=== PATIENT | female | born 1965 | race Caucasian/White ===

== ENCOUNTER 2017-07-05 04:32 | Emergency (ER) | payer MEDICAID ==
[2017-07-05 07:21] LABS: WHITE BLOOD COUNT 2.8 10^3/ul (4.8-10.8)
[2017-07-05 07:21] LABS: ABNORMAL IP MESSAGE 1; HEMATOCRIT 33.7 % (37.0-47.0); HEMOGLOBIN 11.1 g/dl (12.0-16.0); MEAN CORPUSCULAR HEMOGLOBIN 29.1 pg (29.0-33.0); MEAN CORPUSCULAR HGB CONC 32.9 g/dl (32.0-37.0); MEAN CORPUSCULAR VOLUME 88.2 fl (82.0-101.0); MEAN PLATELET VOLUME 8.5 fl (7.4-10.4); PLATELET COUNT 403 10^3/UL (140-415); RED BLOOD COUNT 3.82 10^6/ul (4.20-5.40); RED CELL DISTRIBUTION WIDTH 17.9 % (11.5-14.5)
[2017-07-05 07:26] LABS: ADD MAN DIFF? YES; POSITIVE DIFF @See below
[2017-07-05 07:40] LABS: INR 0.96; PROTIME 12.9 Sec (11.9-14.9)
[2017-07-05 07:46] LABS: ANION GAP 13 (8-16); BLOOD UREA NITROGEN 9 mg/dl (7-20); CALCIUM 9.9 mg/dl (8.4-10.2); CARBON DIOXIDE 34 mmol/L (21-31); CHLORIDE 99 mmol/L (97-110); CREATININE 0.62 mg/dl (0.44-1.00); GLUCOSE 121 mg/dl (70-220); POTASSIUM 3.7 mmol/L (3.5-5.1); SODIUM 142 mmol/L (135-144)
[2017-07-05 08:01] LABS: TROPONIN-I < 0.012 ng/ml (0.00-0.12)
[2017-07-05 08:20] LABS: ANISOCYTOSIS 1+ (0-0); BAND NEUTROPHILS % (M) 1 % (0-4); EOSINOPHILS % (M) 3 % (0-7); GIANT THROMBO% (M) 2 % (0-0); LYMPHOCYTES #M 0.4 10^3/ul (0.8-2.9); LYMPHOCYTES % (M) 17 % (15-51); MONOCYTE #M 0.4 10^3/ul (0.3-0.9); MONOCYTES % (M) 15 % (0-11); OVALOCYTES 1+ (0-0); PLATELET ESTIMATE NORMAL; POIKILOCYTOSIS 1+ (0-0); POLYCHROMASIA 1+ (0-0); REACTIVE LYMPHOCYTES% (M) 1 % (0-0); SEG NEUT #M 1.8 10^3/ul (1.6-7.5); SEGMENTED NEUTROPHILS (M) % 63 % (39-77); SMUDGE%M 1 % (0-0)
[2017-07-05] MEDS: IOHEXOL 100 ML (08:22)
[2017-07-05] MEDS: SOD CHLORIDE 0.9% 100 ML (08:23)
== END 2017-07-05 10:05 | disposition home or self-care (01) ==
LOC: FTE 04:32
DX: M54.6 Pain in thoracic spine (principal); I10 Essential (primary) hypertension; R07.9 Chest pain, unspecified; Z85.3 Personal history of malignant neoplasm of breast
CPT/HCPCS: 36415; 71045; 71275; 80048; 84484; 85025; 85610; 85730; 93005; 93971; 99285-25

== ENCOUNTER 2017-07-11 12:58 | Emergency (ER) | payer MEDICAID ==
[2017-07-11] MEDS: LACTULOSE 30ML CUP PO (13:58)
[2017-07-11] MEDS: SOD CHLORIDE 0.9% 1,000 ML IV (13:59)
[2017-07-11] MEDS: HYDROmorphONE 1 MG/5 ML IV SYRINGE IV (13:59)
[2017-07-11] MEDS: MAGNESIUM HYDROXIDE 30ML CUP PO (14:57)
[2017-07-11] MEDS: METHYLNALTREXONE 12 MG/0.6 ML VIAL SC (14:57)
[2017-07-11] MEDS: MINERAL OIL 133 ML ENEMA PR (14:58)
[2017-07-11 16:50] LABS: ADD UMIC YES; UR ASCORBIC ACID NEGATIVE (NEGATIVE); UR BACTERIA FEW /HPF (NONE SEEN); UR BILIRUBIN (Dip) NEGATIVE (NEGATIVE); UR BLOOD (Dip) 1+ mg/dL (NEGATIVE); UR CLARITY CLEAR (CLEAR); UR COLOR STRAW (YELLOW); UR GLUCOSE (Dip) NEGATIVE (NEGATIVE); UR KETONES (Dip) NEGATIVE (NEGATIVE); UR LEUKOCYTE ESTERASE (Dip) NEGATIVE Leu/ul (NEGATIVE); UR NITRITE (Dip) NEGATIVE (NEGATIVE); UR RBC 4 /HPF (0-5); UR SPECIFIC GRAVITY (Dip) 1.004 (1.003-1.030); UR SQUAMOUS EPITHELIAL CELL FEW /HPF (FEW); UR TOTAL PROTEIN (Dip) NEGATIVE (NEGATIVE); UR UROBILINOGEN (Dip) NEGATIVE (NEGATIVE); UR WBC 0 /HPF (0-5)
== END 2017-07-11 17:34 | disposition home or self-care (01) ==
LOC: E/R 12:58
DX: K59.03 Drug induced constipation (principal); I10 Essential (primary) hypertension; R40.2142 Coma scale, eyes open, spontaneous, at arrival to emergency department; R40.2252 Coma scale, best verbal response, oriented, at arrival to emergency department; R40.2362 Coma scale, best motor response, obeys commands, at arrival to emergency department; Z85.3 Personal history of malignant neoplasm of breast
CPT/HCPCS: 74176; 81001; 96372; 96374; 99285-25

== ENCOUNTER 2017-07-16 08:38 | Inpatient (IN) | payer MEDICAID, OTHER ==
[2017-07-16 09:20] LABS: ADD MAN DIFF? NO
[2017-07-16 09:23] LABS: WHITE BLOOD COUNT 5.6 10^3/ul (4.8-10.8)
[2017-07-16 09:23] LABS: BASOPHIL # 0.1 10^3/ul (0.0-0.1); BASOPHILS % 1.1 % (0.0-2.0); EOSINOPHILS % 0.7 % (0.0-7.0); HEMATOCRIT 34.1 % (37.0-47.0); HEMOGLOBIN 11.1 g/dl (12.0-16.0); LYMPHOCYTES # 0.8 10^3/ul (0.8-2.9); LYMPHOCYTES % 14.6 % (15.0-51.0); MEAN CORPUSCULAR HEMOGLOBIN 28.5 pg (29.0-33.0); MEAN CORPUSCULAR HGB CONC 32.6 g/dl (32.0-37.0); MEAN CORPUSCULAR VOLUME 87.7 fl (82.0-101.0); MEAN PLATELET VOLUME 8.8 fl (7.4-10.4); MONOCYTE # 0.4 10^3/ul (0.3-0.9); MONOCYTES % 6.4 % (0.0-11.0); NEUTROPHIL # 4.3 10^3/ul (1.6-7.5); NEUTROPHILS % 76.8 % (39.0-77.0); PLATELET COUNT 666 10^3/UL (140-415); RED BLOOD COUNT 3.89 10^6/ul (4.20-5.40); RED CELL DISTRIBUTION WIDTH 18.4 % (11.5-14.5)
[2017-07-16] MEDS: SOD CHLORIDE 0.9% 1,000 ML IV (09:23)
[2017-07-16 09:41] LABS: ALANINE AMINOTRANSFERASE 18 IU/L (13-69); ALBUMIN 4.2 g/dl (3.3-4.9); ALBUMIN/GLOBULIN RATIO 1.13; ALKALINE PHOSPHATASE 106 IU/L (42-121); ANION GAP 16 (8-16); ASPARTATE AMINO TRANSFERASE 30 IU/L (15-46); BILIRUBIN,INDIRECT 0.2 mg/dl (0-1.1); BILIRUBIN,TOTAL 0.2 mg/dl (0.2-1.3); BLOOD UREA NITROGEN 13 mg/dl (7-20); CALCIUM 9.8 mg/dl (8.4-10.2); CARBON DIOXIDE 32 mmol/L (21-31); CHLORIDE 97 mmol/L (97-110); CREATININE 0.67 mg/dl (0.44-1.00); GLUCOSE 103 mg/dl (70-220); INR 0.97; POTASSIUM 3.6 mmol/L (3.5-5.1); SODIUM 141 mmol/L (135-144); TOTAL PROTEIN 7.9 g/dl (6.1-8.1)
[2017-07-16 09:42] LABS: PARTIAL THROMBOPLASTIN TIME 30.5 Sec (25.0-35.0)
[2017-07-16 09:55] LABS: TROPONIN-I < 0.012 ng/ml (0.000-0.120)
[2017-07-16] MEDS: LORAZEPAM 2 MG INJ IV (10:02)
[2017-07-16] MEDS ORDERED: ACETAMINOPHEN 325 MG TAB PO (10:30)
[2017-07-16] MEDS ORDERED: ONDANSETRON 4 MG INJ IV (10:30)
[2017-07-16] MEDS ORDERED: NACL 0.9% 3 ML SYG IV ×2 (10:30)
[2017-07-16 10:38] LABS: ADD UMIC YES; UR ASCORBIC ACID NEGATIVE (NEGATIVE); UR BILIRUBIN (Dip) NEGATIVE (NEGATIVE); UR BLOOD (Dip) 1+ mg/dL (NEGATIVE); UR CLARITY CLEAR (CLEAR); UR COLOR STRAW (YELLOW); UR GLUCOSE (Dip) NEGATIVE (NEGATIVE); UR KETONES (Dip) NEGATIVE (NEGATIVE); UR LEUKOCYTE ESTERASE (Dip) NEGATIVE Leu/ul (NEGATIVE); UR NITRITE (Dip) NEGATIVE (NEGATIVE); UR RBC 3 /HPF (0-5); UR SPECIFIC GRAVITY (Dip) 1.005 (1.003-1.030); UR TOTAL PROTEIN (Dip) NEGATIVE (NEGATIVE); UR UROBILINOGEN (Dip) NEGATIVE (NEGATIVE); UR WBC 0 /HPF (0-5)
[2017-07-16] MEDS: ALBUTEROL HFA 8 GM INHALER INH ×3 (13:00→21:00)
[2017-07-16] MEDS: [UNRECOGNIZED DRUG - REMARK] XX (14:00)
[2017-07-16] MEDS: DOCUSATE SODIUM 100 MG CAP PO ×2 (14:17→20:20)
[2017-07-16] MEDS: DEXAMETHASONE 4 MG/ML 1 ML INJ IV ×2 (14:18→17:29)
[2017-07-16] MEDS: morphine 2 MG INJ IV ×2 (14:19→19:51)
[2017-07-16] MEDS: GABAPENTIN 100 MG CAP PO (14:58)
[2017-07-16] MEDS: morphine (ER) 30 MG TAB PO ×2 (14:59→20:20)
[2017-07-16] MEDS: CALCIUM CARBONATE 1.25 GM TAB PO (14:59)
[2017-07-16] MEDS: MECLIZINE 25 MG TAB PO ×2 (14:59→20:29)
[2017-07-16] MEDS: IBRANCE 100 MG PO (17:00)
[2017-07-16] MEDS: GUAIFENESIN LA 600 MG TABSR PO (20:19)
[2017-07-16] MEDS: TIZANIDINE 2 MG TAB PO (20:20)
[2017-07-16] MEDS: SENNA/DOCUSATE NA (8.6MG/50MG) TAB PO (20:21)
[2017-07-16] MEDS: HYDROmorphONE 0.5 MG/0.5 ML SYG IV (23:24)
[2017-07-17] MEDS: ALBUTEROL HFA 8 GM INHALER INH ×6 (01:00→23:30)
[2017-07-17] MEDS: DEXAMETHASONE 4 MG/ML 1 ML INJ IV ×2 (01:13→06:03)
[2017-07-17] MEDS: PANTOPRAZOLE (EC) 40 MG TAB PO (06:03)
[2017-07-17] MEDS: HYDROmorphONE 0.5 MG/0.5 ML SYG IV ×2 (06:04→11:38)
[2017-07-17 08:01] LABS: ADD MAN DIFF? NO
[2017-07-17 08:10] LABS: ABNORMAL IP MESSAGE 1; BASOPHILS % 0.2 % (0.0-2.0); HEMATOCRIT 30.8 % (37.0-47.0); HEMOGLOBIN 10.2 g/dl (12.0-16.0); LYMPHOCYTES # 0.5 10^3/ul (0.8-2.9); LYMPHOCYTES % 9.3 % (15.0-51.0); MEAN CORPUSCULAR HEMOGLOBIN 29.1 pg (29.0-33.0); MEAN CORPUSCULAR HGB CONC 33.1 g/dl (32.0-37.0); MEAN PLATELET VOLUME 9.3 fl (7.4-10.4); MONOCYTE # 0.2 10^3/ul (0.3-0.9); MONOCYTES % 3.1 % (0.0-11.0); NEUTROPHIL # 5.1 10^3/ul (1.6-7.5); NEUTROPHILS % 86.7 % (39.0-77.0); PLATELET COUNT 524 10^3/UL (140-415); RED CELL DISTRIBUTION WIDTH 18.6 % (11.5-14.5)
[2017-07-17 08:10] LABS: WHITE BLOOD COUNT 5.8 10^3/ul (4.8-10.8)
[2017-07-17 08:19] LABS: POSITIVE DIFF @See below
[2017-07-17 08:21] LABS: ANION GAP 13 (8-16); BLOOD UREA NITROGEN 15 mg/dl (7-20); CALCIUM 9.4 mg/dl (8.4-10.2); CARBON DIOXIDE 29 mmol/L (21-31); CHLORIDE 101 mmol/L (97-110); CREATININE 0.55 mg/dl (0.44-1.00); GLUCOSE 121 mg/dl (70-220); MAGNESIUM 2.3 mg/dl (1.7-2.5); POTASSIUM 3.8 mmol/L (3.5-5.1); SODIUM 139 mmol/L (135-144)
[2017-07-17] MEDS: POLYETHYLENE GLYCOL 17 GM PACKET PO (08:25)
[2017-07-17] MEDS: TIZANIDINE 2 MG TAB PO ×3 (08:26→20:40)
[2017-07-17] MEDS: morphine (ER) 30 MG TAB PO ×2 (08:26→20:37)
[2017-07-17] MEDS: CALCIUM CARBONATE 1.25 GM TAB PO (08:27)
[2017-07-17] MEDS: MECLIZINE 25 MG TAB PO ×3 (08:27→20:38)
[2017-07-17] MEDS: DOCUSATE SODIUM 100 MG CAP PO ×3 (08:27→20:37)
[2017-07-17] MEDS: GUAIFENESIN LA 600 MG TABSR PO ×2 (08:28→20:39)
[2017-07-17] MEDS: SENNA/DOCUSATE NA (8.6MG/50MG) TAB PO ×2 (08:28→20:37)
[2017-07-17] MEDS: LETROZOLE 2.5 MG TAB PO (10:16)
[2017-07-17] MEDS: IBRANCE 100 MG PO (10:16)
[2017-07-17] MEDS: DEXAMETHASONE 10 MG/ML 1 ML INJ IV ×2 (11:37→20:41)
[2017-07-18] MEDS: DEXAMETHASONE 10 MG/ML 1 ML INJ IV ×4 (00:59→17:47)
[2017-07-18] MEDS: ALBUTEROL HFA 8 GM INHALER INH ×6 (01:00→20:26)
[2017-07-18] MEDS: HYDROmorphONE 0.5 MG/0.5 ML SYG IV (01:04)
[2017-07-18] MEDS: ALBUTEROL 0.083% (NEB) 2.5 MG/3 ML AMP HHN ×3 (01:11→21:38)
[2017-07-18] MEDS: PANTOPRAZOLE (EC) 40 MG TAB PO (06:37)
[2017-07-18] MEDS: TIZANIDINE 2 MG TAB PO ×4 (09:00→20:26)
[2017-07-18] MEDS: SENNA/DOCUSATE NA (8.6MG/50MG) TAB PO ×2 (09:00→20:28)
[2017-07-18] MEDS: morphine (ER) 30 MG TAB PO ×2 (09:32→20:30)
[2017-07-18] MEDS: LORAZEPAM 2 MG INJ IV (10:10)
[2017-07-18] MEDS: CALCIUM CARBONATE 1.25 GM TAB PO (10:15)
[2017-07-18] MEDS: GUAIFENESIN LA 600 MG TABSR PO ×2 (10:17→20:27)
[2017-07-18] MEDS: DOCUSATE SODIUM 100 MG CAP PO ×3 (10:17→20:31)
[2017-07-18] MEDS: MECLIZINE 25 MG TAB PO ×3 (10:17→20:27)
[2017-07-18] MEDS: ENOXAPARIN 100 MG/ML SYG SC ×2 (10:27→20:34)
[2017-07-18] MEDS: LETROZOLE 2.5 MG TAB PO (10:27)
[2017-07-18] MEDS: IBRANCE 100 MG PO (10:28)
[2017-07-18] MEDS: POLYETHYLENE GLYCOL 17 GM PACKET PO (10:34)
[2017-07-18] MEDS: BUSPIRONE 5 MG TAB PO ×2 (13:24→21:05)
[2017-07-18] MEDS: BISACODYL 10 MG SUPP PR (21:05)
[2017-07-18] MEDS: MAGNESIUM HYDROXIDE 30ML CUP PO (22:17)
[2017-07-19] MEDS: ALBUTEROL HFA 8 GM INHALER INH ×6 (00:07→21:00)
[2017-07-19] MEDS: LACTULOSE 30ML CUP PO (00:40)
[2017-07-19] MEDS: DEXAMETHASONE 10 MG/ML 1 ML INJ IV ×4 (01:06→17:58)
[2017-07-19] MEDS: BARIUM SULF 2% 450 ML BTL (BERRY SMOOTHIE) PO ×2 (02:46→04:09)
[2017-07-19] MEDS: LORAZEPAM 2 MG INJ IV ×2 (04:08→23:12)
[2017-07-19] MEDS: SOD CHLORIDE 0.9% 1,000 ML IV ×2 (05:10→19:48)
[2017-07-19] MEDS: PANTOPRAZOLE (EC) 40 MG TAB PO (05:13)
[2017-07-19 07:07] LABS: OCCULT BLOOD STOOL NEGATIVE (NEGATIVE)
[2017-07-19] MEDS: IBRANCE 100 MG PO (09:00)
[2017-07-19] MEDS: DOCUSATE SODIUM 100 MG CAP PO ×3 (09:52→21:18)
[2017-07-19] MEDS: CALCIUM CARBONATE 1.25 GM TAB PO (09:52)
[2017-07-19] MEDS: TIZANIDINE 2 MG TAB PO ×3 (09:53→21:18)
[2017-07-19] MEDS: MECLIZINE 25 MG TAB PO ×3 (09:53→21:18)
[2017-07-19] MEDS: GUAIFENESIN LA 600 MG TABSR PO ×2 (09:53→21:18)
[2017-07-19] MEDS: BUSPIRONE 5 MG TAB PO ×2 (09:53→21:18)
[2017-07-19] MEDS: SENNA/DOCUSATE NA (8.6MG/50MG) TAB PO ×2 (09:53→21:17)
[2017-07-19] MEDS: POLYETHYLENE GLYCOL 17 GM PACKET PO (09:53)
[2017-07-19] MEDS: LETROZOLE 2.5 MG TAB PO (10:01)
[2017-07-19] MEDS: ENOXAPARIN 100 MG/ML SYG SC ×2 (10:19→21:34)
[2017-07-19] MEDS: morphine (ER) 30 MG TAB PO ×2 (10:32→21:30)
[2017-07-19] MEDS: HYDROmorphONE 0.5 MG/0.5 ML SYG IV ×2 (10:32→20:01)
[2017-07-19 11:07] LABS: ADD MAN DIFF? NO
[2017-07-19 11:09] LABS: WHITE BLOOD COUNT 9.5 10^3/ul (4.8-10.8)
[2017-07-19 11:10] LABS: ABNORMAL IP MESSAGE 1; HEMATOCRIT 34.4 % (37.0-47.0); HEMOGLOBIN 11.1 g/dl (12.0-16.0); LYMPHOCYTES # 0.4 10^3/ul (0.8-2.9); LYMPHOCYTES % 4.3 % (15.0-51.0); MEAN CORPUSCULAR HEMOGLOBIN 28.8 pg (29.0-33.0); MEAN CORPUSCULAR HGB CONC 32.3 g/dl (32.0-37.0); MEAN CORPUSCULAR VOLUME 89.1 fl (82.0-101.0); MONOCYTE # 0.4 10^3/ul (0.3-0.9); MONOCYTES % 3.7 % (0.0-11.0); NEUTROPHIL # 8.6 10^3/ul (1.6-7.5); NEUTROPHILS % 91.5 % (39.0-77.0); PLATELET COUNT 584 10^3/UL (140-415); RED BLOOD COUNT 3.86 10^6/ul (4.20-5.40); RED CELL DISTRIBUTION WIDTH 18.9 % (11.5-14.5)
[2017-07-19 11:32] LABS: ALBUMIN 4.1 g/dl (3.3-4.9); ANION GAP 17 (8-16); BLOOD UREA NITROGEN 18 mg/dl (7-20); CARBON DIOXIDE 28 mmol/L (21-31); CHLORIDE 99 mmol/L (97-110); CREATININE 0.64 mg/dl (0.44-1.00); GLUCOSE 127 mg/dl (70-220); MAGNESIUM 2.4 mg/dl (1.7-2.5); PHOSPHORUS 3.8 mg/dl (2.5-4.9); POTASSIUM 3.7 mmol/L (3.5-5.1); SODIUM 140 mmol/L (135-144)
[2017-07-19] MEDS: traZODone 50 MG TAB PO (21:18)
[2017-07-19] MEDS ORDERED: hydrALAzine 20 MG INJ IV (21:30)
[2017-07-19] MEDS: hydrALAzine 20 MG INJ IV (22:19)
[2017-07-20] MEDS: DEXAMETHASONE 10 MG/ML 1 ML INJ IV ×4 (00:29→21:35)
[2017-07-20] MEDS: ALBUTEROL HFA 8 GM INHALER INH ×6 (01:00→21:07)
[2017-07-20] MEDS: PANTOPRAZOLE (EC) 40 MG TAB PO (05:44)
[2017-07-20] MEDS: SOD CHLORIDE 0.9% 1,000 ML IV (05:50)
[2017-07-20 06:02] LABS: ADD MAN DIFF? NO
[2017-07-20 06:13] LABS: WHITE BLOOD COUNT 5.2 10^3/ul (4.8-10.8)
[2017-07-20 06:13] LABS: ABNORMAL IP MESSAGE 1; HEMOGLOBIN 11.1 g/dl (12.0-16.0); LYMPHOCYTES # 0.4 10^3/ul (0.8-2.9); LYMPHOCYTES % 7.3 % (15.0-51.0); MEAN CORPUSCULAR HEMOGLOBIN 28.5 pg (29.0-33.0); MEAN CORPUSCULAR HGB CONC 32.6 g/dl (32.0-37.0); MEAN CORPUSCULAR VOLUME 87.4 fl (82.0-101.0); MEAN PLATELET VOLUME 9.5 fl (7.4-10.4); MONOCYTE # 0.2 10^3/ul (0.3-0.9); MONOCYTES % 3.6 % (0.0-11.0); NEUTROPHIL # 4.6 10^3/ul (1.6-7.5); NEUTROPHILS % 88.3 % (39.0-77.0); PLATELET COUNT 502 10^3/UL (140-415); RED BLOOD COUNT 3.89 10^6/ul (4.20-5.40)
[2017-07-20 06:23] LABS: POSITIVE DIFF @See below
[2017-07-20 06:31] LABS: ALBUMIN 3.8 g/dl (3.3-4.9); ANION GAP 15 (8-16); BLOOD UREA NITROGEN 16 mg/dl (7-20); CALCIUM 9.5 mg/dl (8.4-10.2); CARBON DIOXIDE 28 mmol/L (21-31); CHLORIDE 102 mmol/L (97-110); CREATININE 0.58 mg/dl (0.44-1.00); GLUCOSE 110 mg/dl (70-220); MAGNESIUM 2.5 mg/dl (1.7-2.5); PHOSPHORUS 4.1 mg/dl (2.5-4.9); SODIUM 141 mmol/L (135-144)
[2017-07-20] MEDS: TIZANIDINE 2 MG TAB PO ×3 (09:21→21:06)
[2017-07-20] MEDS: morphine (ER) 30 MG TAB PO ×2 (09:21→21:06)
[2017-07-20] MEDS: CALCIUM CARBONATE 1.25 GM TAB PO (09:22)
[2017-07-20] MEDS: SENNA/DOCUSATE NA (8.6MG/50MG) TAB PO ×2 (09:22→21:05)
[2017-07-20] MEDS: DOCUSATE SODIUM 100 MG CAP PO ×3 (09:23→21:04)
[2017-07-20] MEDS: BUSPIRONE 5 MG TAB PO ×2 (09:23→21:06)
[2017-07-20] MEDS: MECLIZINE 25 MG TAB PO ×3 (09:23→21:05)
[2017-07-20] MEDS: GUAIFENESIN LA 600 MG TABSR PO ×2 (09:24→21:06)
[2017-07-20] MEDS: POLYETHYLENE GLYCOL 17 GM PACKET PO (09:25)
[2017-07-20] MEDS: LORAZEPAM 2 MG INJ IV ×2 (09:25→18:09)
[2017-07-20] MEDS: LETROZOLE 2.5 MG TAB PO (09:28)
[2017-07-20] MEDS: ENOXAPARIN 100 MG/ML SYG SC ×2 (09:29→21:11)
[2017-07-20] MEDS: IOHEXOL 300MG/ML 150 ML BTL (13:23)
[2017-07-20] MEDS: SOD CHLORIDE 0.9% 100 ML (13:23)
[2017-07-20] MEDS: MAGNESIUM HYDROXIDE 30ML CUP PO (18:18)
[2017-07-20] MEDS: traZODone 50 MG TAB PO (21:06)
[2017-07-21] MEDS: SOD CHLORIDE 0.9% 1,000 ML IV ×2 (00:24→05:37)
[2017-07-21] MEDS: ALBUTEROL HFA 8 GM INHALER INH ×6 (01:00→21:08)
[2017-07-21 05:27] LABS: ADD MAN DIFF? NO
[2017-07-21 05:31] LABS: ABNORMAL IP MESSAGE 1; HEMATOCRIT 34.7 % (37.0-47.0); HEMOGLOBIN 11.2 g/dl (12.0-16.0); LYMPHOCYTES # 0.4 10^3/ul (0.8-2.9); LYMPHOCYTES % 8.9 % (15.0-51.0); MEAN CORPUSCULAR HEMOGLOBIN 28.6 pg (29.0-33.0); MEAN CORPUSCULAR HGB CONC 32.3 g/dl (32.0-37.0); MEAN CORPUSCULAR VOLUME 88.5 fl (82.0-101.0); MEAN PLATELET VOLUME 9.5 fl (7.4-10.4); MONOCYTE # 0.3 10^3/ul (0.3-0.9); MONOCYTES % 6.1 % (0.0-11.0); NEUTROPHIL # 4.2 10^3/ul (1.6-7.5); NEUTROPHILS % 84.2 % (39.0-77.0); PLATELET COUNT 441 10^3/UL (140-415); RED BLOOD COUNT 3.92 10^6/ul (4.20-5.40); RED CELL DISTRIBUTION WIDTH 18.9 % (11.5-14.5)
[2017-07-21 05:31] LABS: WHITE BLOOD COUNT 4.9 10^3/ul (4.8-10.8)
[2017-07-21] MEDS: PANTOPRAZOLE (EC) 40 MG TAB PO (05:36)
[2017-07-21] MEDS: DEXAMETHASONE 10 MG/ML 1 ML INJ IV ×3 (05:36→21:10)
[2017-07-21 05:43] LABS: POSITIVE DIFF @See below
[2017-07-21 05:54] LABS: ALBUMIN 3.6 g/dl (3.3-4.9); ANION GAP 13 (8-16); BLOOD UREA NITROGEN 18 mg/dl (7-20); CALCIUM 8.9 mg/dl (8.4-10.2); CARBON DIOXIDE 30 mmol/L (21-31); CHLORIDE 102 mmol/L (97-110); CREATININE 0.54 mg/dl (0.44-1.00); GLUCOSE 101 mg/dl (70-220); MAGNESIUM 2.6 mg/dl (1.7-2.5); PHOSPHORUS 4.7 mg/dl (2.5-4.9); POTASSIUM 4.4 mmol/L (3.5-5.1); SODIUM 141 mmol/L (135-144)
[2017-07-21] MEDS: MECLIZINE 25 MG TAB PO ×3 (09:00→21:10)
[2017-07-21] MEDS: DOCUSATE SODIUM 100 MG CAP PO ×3 (09:00→21:10)
[2017-07-21] MEDS: CALCIUM CARBONATE 1.25 GM TAB PO (09:01)
[2017-07-21] MEDS: SENNA/DOCUSATE NA (8.6MG/50MG) TAB PO ×2 (09:01→21:09)
[2017-07-21] MEDS: GUAIFENESIN LA 600 MG TABSR PO ×2 (09:01→21:09)
[2017-07-21] MEDS: morphine (ER) 30 MG TAB PO ×2 (09:01→21:10)
[2017-07-21] MEDS: TIZANIDINE 2 MG TAB PO ×3 (09:02→21:09)
[2017-07-21] MEDS: BUSPIRONE 5 MG TAB PO ×2 (09:02→21:09)
[2017-07-21] MEDS: POLYETHYLENE GLYCOL 17 GM PACKET PO (09:02)
[2017-07-21] MEDS: LORAZEPAM 2 MG INJ IV ×2 (09:03→21:11)
[2017-07-21] MEDS: LETROZOLE 2.5 MG TAB PO (09:10)
[2017-07-21] MEDS: ENOXAPARIN 100 MG/ML SYG SC ×2 (09:11→21:11)
[2017-07-21] MEDS: MAGNESIUM HYDROXIDE 30ML CUP PO (09:17)
[2017-07-21] MEDS ORDERED: POLYETHYLENE GLYCOL 17 GM PACKET PO (11:00)
[2017-07-21] MEDS: MAGNESIUM CITRATE 300 ML BTL PO (12:00)
[2017-07-21] MEDS: HYDROmorphONE 0.5 MG/0.5 ML SYG IV ×2 (15:20→19:15)
[2017-07-21] MEDS: traZODone 50 MG TAB PO (21:09)
[2017-07-22] MEDS: ALBUTEROL HFA 8 GM INHALER INH ×6 (01:00→21:16)
[2017-07-22] MEDS: PANTOPRAZOLE (EC) 40 MG TAB PO (05:26)
[2017-07-22] MEDS: DEXAMETHASONE 10 MG/ML 1 ML INJ IV ×3 (05:26→21:16)
[2017-07-22 05:35] LABS: ADD MAN DIFF? NO
[2017-07-22 05:45] LABS: WHITE BLOOD COUNT 5.8 10^3/ul (4.8-10.8)
[2017-07-22 05:45] LABS: ABNORMAL IP MESSAGE 1; BASOPHILS % 0.2 % (0.0-2.0); HEMATOCRIT 34.4 % (37.0-47.0); LYMPHOCYTES # 0.4 10^3/ul (0.8-2.9); LYMPHOCYTES % 7.3 % (15.0-51.0); MEAN CORPUSCULAR HEMOGLOBIN 28.7 pg (29.0-33.0); MEAN CORPUSCULAR VOLUME 89.8 fl (82.0-101.0); MEAN PLATELET VOLUME 9.6 fl (7.4-10.4); MONOCYTE # 0.4 10^3/ul (0.3-0.9); MONOCYTES % 6.1 % (0.0-11.0); NEUTROPHILS % 86.1 % (39.0-77.0); PLATELET COUNT 467 10^3/UL (140-415); RED BLOOD COUNT 3.83 10^6/ul (4.20-5.40); RED CELL DISTRIBUTION WIDTH 18.7 % (11.5-14.5)
[2017-07-22 05:48] LABS: POSITIVE DIFF @See below
[2017-07-22 06:11] LABS: ANION GAP 10 (8-16); BLOOD UREA NITROGEN 17 mg/dl (7-20); CARBON DIOXIDE 31 mmol/L (21-31); CHLORIDE 102 mmol/L (97-110); CREATININE 0.56 mg/dl (0.44-1.00); GLUCOSE 99 mg/dl (70-220); MAGNESIUM 2.8 mg/dl (1.7-2.5); PHOSPHORUS 3.9 mg/dl (2.5-4.9); POTASSIUM 3.9 mmol/L (3.5-5.1); SODIUM 139 mmol/L (135-144)
[2017-07-22] MEDS: HYDROmorphONE 0.5 MG/0.5 ML SYG IV ×2 (08:18→18:46)
[2017-07-22] MEDS: DOCUSATE SODIUM 100 MG CAP PO ×3 (09:35→21:17)
[2017-07-22] MEDS: GUAIFENESIN LA 600 MG TABSR PO ×2 (09:36→21:16)
[2017-07-22] MEDS: BUSPIRONE 5 MG TAB PO ×2 (09:38→21:16)
[2017-07-22] MEDS: TIZANIDINE 2 MG TAB PO ×3 (09:40→21:16)
[2017-07-22] MEDS: SENNA/DOCUSATE NA (8.6MG/50MG) TAB PO ×2 (09:40→21:17)
[2017-07-22] MEDS: morphine (ER) 30 MG TAB PO ×2 (09:42→21:18)
[2017-07-22] MEDS: CALCIUM CARBONATE 1.25 GM TAB PO (09:42)
[2017-07-22] MEDS: MECLIZINE 25 MG TAB PO ×3 (09:43→21:17)
[2017-07-22] MEDS: LETROZOLE 2.5 MG TAB PO (09:47)
[2017-07-22] MEDS: ENOXAPARIN 100 MG/ML SYG SC ×2 (09:48→21:25)
[2017-07-22] MEDS: POLYETHYLENE GLYCOL 17 GM PACKET PO (09:49)
[2017-07-22] MEDS: traZODone 50 MG TAB PO (21:17)
[2017-07-23] MEDS: ALBUTEROL HFA 8 GM INHALER INH ×6 (01:00→20:56)
[2017-07-23 05:14] LABS: ADD MAN DIFF? NO
[2017-07-23 05:16] LABS: ABNORMAL IP MESSAGE 1; BASOPHILS % 0.2 % (0.0-2.0); HEMATOCRIT 31.5 % (37.0-47.0); HEMOGLOBIN 10.5 g/dl (12.0-16.0); LYMPHOCYTES # 0.3 10^3/ul (0.8-2.9); LYMPHOCYTES % 5.1 % (15.0-51.0); MEAN CORPUSCULAR HEMOGLOBIN 29.3 pg (29.0-33.0); MEAN CORPUSCULAR HGB CONC 33.3 g/dl (32.0-37.0); MEAN PLATELET VOLUME 9.5 fl (7.4-10.4); MONOCYTE # 0.5 10^3/ul (0.3-0.9); MONOCYTES % 7.2 % (0.0-11.0); NEUTROPHIL # 5.4 10^3/ul (1.6-7.5); PLATELET COUNT 438 10^3/UL (140-415); RED BLOOD COUNT 3.58 10^6/ul (4.20-5.40); RED CELL DISTRIBUTION WIDTH 18.6 % (11.5-14.5)
[2017-07-23 05:16] LABS: WHITE BLOOD COUNT 6.3 10^3/ul (4.8-10.8)
[2017-07-23 05:18] LABS: POSITIVE DIFF @See below
[2017-07-23 05:33] LABS: ANION GAP 10 (8-16); BLOOD UREA NITROGEN 22 mg/dl (7-20); CALCIUM 8.5 mg/dl (8.4-10.2); CARBON DIOXIDE 31 mmol/L (21-31); CHLORIDE 102 mmol/L (97-110); CREATININE 0.63 mg/dl (0.44-1.00); GLUCOSE 114 mg/dl (70-220); MAGNESIUM 2.6 mg/dl (1.7-2.5); POTASSIUM 3.7 mmol/L (3.5-5.1); SODIUM 139 mmol/L (135-144)
[2017-07-23] MEDS: PANTOPRAZOLE (EC) 40 MG TAB PO (06:17)
[2017-07-23] MEDS: DEXAMETHASONE 10 MG/ML 1 ML INJ IV ×3 (06:17→22:59)
[2017-07-23] MEDS: POLYETHYLENE GLYCOL 17 GM PACKET PO (08:39)
[2017-07-23] MEDS: DOCUSATE SODIUM 100 MG CAP PO ×3 (08:39→20:54)
[2017-07-23] MEDS: TIZANIDINE 2 MG TAB PO ×3 (08:39→20:55)
[2017-07-23] MEDS: BUSPIRONE 5 MG TAB PO ×2 (08:40→20:55)
[2017-07-23] MEDS: GUAIFENESIN LA 600 MG TABSR PO ×2 (08:40→21:00)
[2017-07-23] MEDS: SENNA/DOCUSATE NA (8.6MG/50MG) TAB PO ×2 (08:40→20:54)
[2017-07-23] MEDS: CALCIUM CARBONATE 1.25 GM TAB PO (08:40)
[2017-07-23] MEDS: MECLIZINE 25 MG TAB PO ×3 (08:40→20:55)
[2017-07-23] MEDS: morphine (ER) 30 MG TAB PO ×2 (08:41→20:55)
[2017-07-23] MEDS: hydrALAzine 20 MG INJ IV (08:43)
[2017-07-23] MEDS: LETROZOLE 2.5 MG TAB PO (08:56)
[2017-07-23] MEDS: ENOXAPARIN 100 MG/ML SYG SC ×2 (08:57→20:57)
[2017-07-23] MEDS: LORAZEPAM 2 MG INJ IV (09:52)
[2017-07-23] MEDS: LISINOPRIL 5 MG TAB PO (11:53)
[2017-07-23] MEDS: GUAIFENESIN/CODEINE 5ML CUP PO ×2 (11:53→16:20)
[2017-07-23] MEDS: HYDROmorphONE 0.5 MG/0.5 ML SYG IV ×2 (14:39→23:07)
[2017-07-23] MEDS: traZODone 50 MG TAB PO (20:54)
[2017-07-23] MEDS: MAGNESIUM HYDROXIDE 30ML CUP PO (21:00)
[2017-07-24] MEDS: ALBUTEROL HFA 8 GM INHALER INH ×6 (01:00→21:03)
[2017-07-24 05:10] LABS: ABNORMAL IP MESSAGE 1; ADD MAN DIFF? NO; HEMATOCRIT 31.3 % (37.0-47.0); HEMOGLOBIN 10.5 g/dl (12.0-16.0); LYMPHOCYTES # 0.3 10^3/ul (0.8-2.9); LYMPHOCYTES % 4.4 % (15.0-51.0); MEAN CORPUSCULAR HEMOGLOBIN 29.1 pg (29.0-33.0); MEAN CORPUSCULAR HGB CONC 33.5 g/dl (32.0-37.0); MEAN CORPUSCULAR VOLUME 86.7 fl (82.0-101.0); MEAN PLATELET VOLUME 9.1 fl (7.4-10.4); MONOCYTE # 0.5 10^3/ul (0.3-0.9); MONOCYTES % 6.6 % (0.0-11.0); NEUTROPHIL # 6.4 10^3/ul (1.6-7.5); NEUTROPHILS % 88.3 % (39.0-77.0); PLATELET COUNT 433 10^3/UL (140-415); RED BLOOD COUNT 3.61 10^6/ul (4.20-5.40); RED CELL DISTRIBUTION WIDTH 18.9 % (11.5-14.5)
[2017-07-24 05:10] LABS: WHITE BLOOD COUNT 7.2 10^3/ul (4.8-10.8)
[2017-07-24] MEDS: LORAZEPAM 2 MG INJ IV ×2 (05:19→23:07)
[2017-07-24] MEDS: PANTOPRAZOLE (EC) 40 MG TAB PO (05:25)
[2017-07-24 05:35] LABS: ANION GAP 9 (8-16); BLOOD UREA NITROGEN 17 mg/dl (7-20); CALCIUM 8.5 mg/dl (8.4-10.2); CARBON DIOXIDE 30 mmol/L (21-31); CHLORIDE 102 mmol/L (97-110); CREATININE 0.53 mg/dl (0.44-1.00); GLUCOSE 131 mg/dl (70-220); MAGNESIUM 2.4 mg/dl (1.7-2.5); PHOSPHORUS 2.6 mg/dl (2.5-4.9); POTASSIUM 3.7 mmol/L (3.5-5.1); SODIUM 137 mmol/L (135-144)
[2017-07-24 05:40] LABS: POSITIVE DIFF @See below
[2017-07-24] MEDS: HYDROmorphONE 0.5 MG/0.5 ML SYG IV ×2 (06:10→14:30)
[2017-07-24] MEDS: DEXAMETHASONE 10 MG/ML 1 ML INJ IV ×3 (06:10→22:00)
[2017-07-24] MEDS: GUAIFENESIN LA 600 MG TABSR PO ×2 (08:35→21:03)
[2017-07-24] MEDS: MECLIZINE 25 MG TAB PO ×3 (08:36→21:03)
[2017-07-24] MEDS: LISINOPRIL 5 MG TAB PO (08:36)
[2017-07-24] MEDS: SENNA/DOCUSATE NA (8.6MG/50MG) TAB PO ×2 (08:36→21:02)
[2017-07-24] MEDS: CALCIUM CARBONATE 1.25 GM TAB PO (08:36)
[2017-07-24] MEDS: DOCUSATE SODIUM 100 MG CAP PO ×3 (08:36→21:02)
[2017-07-24] MEDS: TIZANIDINE 2 MG TAB PO ×3 (08:37→21:03)
[2017-07-24] MEDS: BUSPIRONE 5 MG TAB PO ×2 (08:37→21:02)
[2017-07-24] MEDS: LETROZOLE 2.5 MG TAB PO (08:38)
[2017-07-24] MEDS: morphine (ER) 30 MG TAB PO ×2 (08:39→21:04)
[2017-07-24] MEDS: POLYETHYLENE GLYCOL 17 GM PACKET PO (08:39)
[2017-07-24] MEDS: ENOXAPARIN 100 MG/ML SYG SC ×2 (08:48→21:16)
[2017-07-24] MEDS: GUAIFENESIN/CODEINE 5ML CUP PO ×2 (10:07→18:15)
[2017-07-24 14:07] LABS: IRON 53 ug/dl (35-150)
[2017-07-24 14:16] LABS: % IRON SATURATION 17 % SAT (22-52); TOTAL IRON BINDING CAPACITY 316 ug/dl (241-421)
[2017-07-24 14:43] LABS: FERRITIN 55.6 ng/ml (11.1-264.0)
[2017-07-24] MEDS: MAGNESIUM HYDROXIDE 30ML CUP PO (21:02)
[2017-07-24] MEDS: LACTULOSE 30ML CUP PO (21:02)
[2017-07-24] MEDS: traZODone 50 MG TAB PO (21:04)
[2017-07-24] MEDS: ONDANSETRON 4 MG INJ IV (21:17)
[2017-07-24] MEDS: BISACODYL 10 MG SUPP PR (23:00)
[2017-07-25] MEDS: ALBUTEROL HFA 8 GM INHALER INH ×6 (01:00→21:00)
[2017-07-25] MEDS: PANTOPRAZOLE (EC) 40 MG TAB PO (06:05)
[2017-07-25] MEDS: DEXAMETHASONE 10 MG/ML 1 ML INJ IV ×3 (06:06→22:00)
[2017-07-25] MEDS: LACTULOSE 30ML CUP PO ×2 (06:08→21:02)
[2017-07-25] MEDS: MAGNESIUM HYDROXIDE 30ML CUP PO ×2 (06:08→21:02)
[2017-07-25] MEDS: DOCUSATE SODIUM 100 MG CAP PO ×3 (08:54→21:01)
[2017-07-25] MEDS: GUAIFENESIN LA 600 MG TABSR PO ×2 (08:54→21:01)
[2017-07-25] MEDS: CALCIUM CARBONATE 1.25 GM TAB PO (08:54)
[2017-07-25] MEDS: BUSPIRONE 5 MG TAB PO ×2 (08:54→21:00)
[2017-07-25] MEDS: MECLIZINE 25 MG TAB PO ×3 (08:55→21:00)
[2017-07-25] MEDS: SENNA/DOCUSATE NA (8.6MG/50MG) TAB PO ×2 (08:55→21:00)
[2017-07-25] MEDS: TIZANIDINE 2 MG TAB PO ×3 (08:55→21:00)
[2017-07-25] MEDS: POLYETHYLENE GLYCOL 17 GM PACKET PO (08:57)
[2017-07-25] MEDS: LORAZEPAM 2 MG INJ IV ×2 (08:58→22:43)
[2017-07-25] MEDS: LETROZOLE 2.5 MG TAB PO (09:02)
[2017-07-25] MEDS: ENOXAPARIN 100 MG/ML SYG SC ×2 (09:04→21:11)
[2017-07-25] MEDS: morphine (ER) 30 MG TAB PO ×2 (09:04→21:00)
[2017-07-25] MEDS: GABAPENTIN 100 MG CAP PO ×2 (12:50→21:00)
[2017-07-25] MEDS: LISINOPRIL 5 MG TAB PO (14:47)
[2017-07-25] MEDS: traZODone 50 MG TAB PO (21:01)
[2017-07-26] MEDS: ALBUTEROL HFA 8 GM INHALER INH ×6 (01:00→21:20)
[2017-07-26] MEDS: DEXAMETHASONE 10 MG/ML 1 ML INJ IV ×3 (05:56→21:14)
[2017-07-26] MEDS: PANTOPRAZOLE (EC) 40 MG TAB PO (05:57)
[2017-07-26] MEDS: BISACODYL 10 MG SUPP PR (06:16)
[2017-07-26] MEDS: SENNA/DOCUSATE NA (8.6MG/50MG) TAB PO ×2 (10:14→21:08)
[2017-07-26] MEDS: MECLIZINE 25 MG TAB PO ×3 (10:15→21:07)
[2017-07-26] MEDS: LISINOPRIL 5 MG TAB PO (10:15)
[2017-07-26] MEDS: CALCIUM CARBONATE 1.25 GM TAB PO (10:15)
[2017-07-26] MEDS: DOCUSATE SODIUM 100 MG CAP PO ×3 (10:15→21:09)
[2017-07-26] MEDS: GABAPENTIN 100 MG CAP PO ×3 (10:16→21:07)
[2017-07-26] MEDS: LETROZOLE 2.5 MG TAB PO (10:16)
[2017-07-26] MEDS: TIZANIDINE 2 MG TAB PO ×3 (10:16→21:35)
[2017-07-26] MEDS: GUAIFENESIN LA 600 MG TABSR PO ×2 (10:16→21:07)
[2017-07-26] MEDS: POLYETHYLENE GLYCOL 17 GM PACKET PO (10:17)
[2017-07-26] MEDS: ENOXAPARIN 100 MG/ML SYG SC ×2 (10:18→21:20)
[2017-07-26] MEDS: morphine (ER) 30 MG TAB PO ×2 (10:20→21:07)
[2017-07-26] MEDS: BUSPIRONE 5 MG TAB PO ×2 (10:23→21:07)
[2017-07-26] MEDS: HYDROmorphONE 0.5 MG/0.5 ML SYG IV (15:55)
[2017-07-26] MEDS: traZODone 50 MG TAB PO (21:09)
[2017-07-26] MEDS: MAGNESIUM HYDROXIDE 30ML CUP PO (21:14)
[2017-07-27] MEDS: LORAZEPAM 2 MG INJ IV ×3 (00:05→21:57)
[2017-07-27] MEDS: ALBUTEROL HFA 8 GM INHALER INH ×6 (01:00→21:57)
[2017-07-27 05:15] LABS: ADD MAN DIFF? NO
[2017-07-27 05:23] LABS: ABNORMAL IP MESSAGE 1; HEMATOCRIT 31.6 % (37.0-47.0); HEMOGLOBIN 10.5 g/dl (12.0-16.0); LYMPHOCYTES # 0.4 10^3/ul (0.8-2.9); LYMPHOCYTES % 5.8 % (15.0-51.0); MEAN CORPUSCULAR HEMOGLOBIN 29.2 pg (29.0-33.0); MEAN CORPUSCULAR HGB CONC 33.2 g/dl (32.0-37.0); MEAN CORPUSCULAR VOLUME 87.8 fl (82.0-101.0); MEAN PLATELET VOLUME 9.5 fl (7.4-10.4); MONOCYTE # 0.5 10^3/ul (0.3-0.9); MONOCYTES % 8.3 % (0.0-11.0); NEUTROPHIL # 5.4 10^3/ul (1.6-7.5); NEUTROPHILS % 84.5 % (39.0-77.0); PLATELET COUNT 385 10^3/UL (140-415); RED CELL DISTRIBUTION WIDTH 19.4 % (11.5-14.5)
[2017-07-27 05:23] LABS: WHITE BLOOD COUNT 6.4 10^3/ul (4.8-10.8)
[2017-07-27 05:33] LABS: POSITIVE DIFF @See below
[2017-07-27] MEDS: PANTOPRAZOLE (EC) 40 MG TAB PO (05:56)
[2017-07-27] MEDS: DEXAMETHASONE 10 MG/ML 1 ML INJ IV ×3 (05:56→22:00)
[2017-07-27 06:01] LABS: ANION GAP 11 (8-16); BLOOD UREA NITROGEN 19 mg/dl (7-20); CALCIUM 9.1 mg/dl (8.4-10.2); CARBON DIOXIDE 33 mmol/L (21-31); CHLORIDE 100 mmol/L (97-110); CREATININE 0.49 mg/dl (0.44-1.00); GLUCOSE 133 mg/dl (70-220); MAGNESIUM 2.5 mg/dl (1.7-2.5); PHOSPHORUS 3.7 mg/dl (2.5-4.9); POTASSIUM 4.4 mmol/L (3.5-5.1); SODIUM 140 mmol/L (135-144)
[2017-07-27] MEDS: DOCUSATE SODIUM 100 MG CAP PO ×3 (08:39→20:35)
[2017-07-27] MEDS: CALCIUM CARBONATE 1.25 GM TAB PO (08:39)
[2017-07-27] MEDS: TIZANIDINE 2 MG TAB PO ×3 (08:39→20:34)
[2017-07-27] MEDS: SENNA/DOCUSATE NA (8.6MG/50MG) TAB PO ×2 (08:39→21:00)
[2017-07-27] MEDS: BUSPIRONE 5 MG TAB PO ×2 (08:40→20:35)
[2017-07-27] MEDS: LISINOPRIL 5 MG TAB PO (08:40)
[2017-07-27] MEDS: MECLIZINE 25 MG TAB PO ×3 (08:40→20:35)
[2017-07-27] MEDS: GUAIFENESIN LA 600 MG TABSR PO ×2 (08:40→20:34)
[2017-07-27] MEDS: LETROZOLE 2.5 MG TAB PO (08:41)
[2017-07-27] MEDS: GABAPENTIN 100 MG CAP PO ×3 (08:41→20:35)
[2017-07-27] MEDS: POLYETHYLENE GLYCOL 17 GM PACKET PO (08:41)
[2017-07-27] MEDS: ENOXAPARIN 100 MG/ML SYG SC ×2 (08:42→21:06)
[2017-07-27] MEDS: morphine (ER) 30 MG TAB PO ×2 (10:19→20:34)
[2017-07-27] MEDS: BISACODYL 10 MG SUPP PR (20:34)
[2017-07-27] MEDS: traZODone 50 MG TAB PO (20:35)
[2017-07-28] MEDS: ALBUTEROL HFA 8 GM INHALER INH ×5 (01:00→16:17)
[2017-07-28 05:55] LABS: ADD MAN DIFF? NO
[2017-07-28] MEDS: PANTOPRAZOLE (EC) 40 MG TAB PO (06:03)
[2017-07-28] MEDS: DEXAMETHASONE 10 MG/ML 1 ML INJ IV ×3 (06:04→22:12)
[2017-07-28 06:12] LABS: WHITE BLOOD COUNT 6.9 10^3/ul (4.8-10.8)
[2017-07-28 06:12] LABS: BASOPHILS % 0.1 % (0.0-2.0); EOSINOPHILS % 0.3 % (0.0-7.0); HEMATOCRIT 31.7 % (37.0-47.0); HEMOGLOBIN 10.2 g/dl (12.0-16.0); LYMPHOCYTES # 0.6 10^3/ul (0.8-2.9); LYMPHOCYTES % 9.2 % (15.0-51.0); MEAN CORPUSCULAR HEMOGLOBIN 28.5 pg (29.0-33.0); MEAN CORPUSCULAR HGB CONC 32.2 g/dl (32.0-37.0); MEAN CORPUSCULAR VOLUME 88.5 fl (82.0-101.0); MEAN PLATELET VOLUME 9.7 fl (7.4-10.4); MONOCYTE # 0.6 10^3/ul (0.3-0.9); MONOCYTES % 9.2 % (0.0-11.0); NEUTROPHIL # 5.5 10^3/ul (1.6-7.5); NEUTROPHILS % 79.7 % (39.0-77.0); PLATELET COUNT 354 10^3/UL (140-415); RED BLOOD COUNT 3.58 10^6/ul (4.20-5.40); RED CELL DISTRIBUTION WIDTH 19.8 % (11.5-14.5)
[2017-07-28 06:20] LABS: ALBUMIN 3.3 g/dl (3.3-4.9); ANION GAP 11 (8-16); BLOOD UREA NITROGEN 25 mg/dl (7-20); CALCIUM 9.1 mg/dl (8.4-10.2); CARBON DIOXIDE 32 mmol/L (21-31); CHLORIDE 100 mmol/L (97-110); CREATININE 0.49 mg/dl (0.44-1.00); GLUCOSE 92 mg/dl (70-220); MAGNESIUM 2.4 mg/dl (1.7-2.5); POTASSIUM 4.3 mmol/L (3.5-5.1); SODIUM 139 mmol/L (135-144)
[2017-07-28] MEDS: POLYETHYLENE GLYCOL 17 GM PACKET PO (09:00)
[2017-07-28] MEDS: SENNA/DOCUSATE NA (8.6MG/50MG) TAB PO ×2 (09:00→21:00)
[2017-07-28] MEDS: BUSPIRONE 5 MG TAB PO ×2 (10:08→21:08)
[2017-07-28] MEDS: LETROZOLE 2.5 MG TAB PO (10:08)
[2017-07-28] MEDS: GABAPENTIN 100 MG CAP PO ×3 (10:10→21:08)
[2017-07-28] MEDS: MECLIZINE 25 MG TAB PO ×3 (10:10→21:08)
[2017-07-28] MEDS: GUAIFENESIN LA 600 MG TABSR PO ×2 (10:10→21:09)
[2017-07-28] MEDS: ENOXAPARIN 100 MG/ML SYG SC ×2 (10:10→21:14)
[2017-07-28] MEDS: morphine (ER) 30 MG TAB PO ×2 (10:10→21:30)
[2017-07-28] MEDS: CALCIUM CARBONATE 1.25 GM TAB PO (10:11)
[2017-07-28] MEDS: DOCUSATE SODIUM 100 MG CAP PO ×3 (10:11→21:00)
[2017-07-28] MEDS: LISINOPRIL 5 MG TAB PO (10:12)
[2017-07-28] MEDS: TIZANIDINE 2 MG TAB PO ×3 (10:14→21:09)
[2017-07-28] MEDS: SOD CHLORIDE 0.9% 500 ML IV (13:13)
[2017-07-28] MEDS: ONDANSETRON 4 MG INJ IV (16:09)
[2017-07-28] MEDS: traZODone 50 MG TAB PO (21:08)
[2017-07-28] MEDS: LORAZEPAM 2 MG INJ IV (22:12)
[2017-07-29 05:52] LABS: ADD MAN DIFF? NO
[2017-07-29 05:59] LABS: WHITE BLOOD COUNT 7.2 10^3/ul (4.8-10.8)
[2017-07-29 05:59] LABS: ABNORMAL IP MESSAGE 1; BASOPHILS % 0.1 % (0.0-2.0); HEMATOCRIT 31.9 % (37.0-47.0); HEMOGLOBIN 10.5 g/dl (12.0-16.0); LYMPHOCYTES # 0.3 10^3/ul (0.8-2.9); LYMPHOCYTES % 4.4 % (15.0-51.0); MEAN CORPUSCULAR HEMOGLOBIN 29.1 pg (29.0-33.0); MEAN CORPUSCULAR HGB CONC 32.9 g/dl (32.0-37.0); MEAN CORPUSCULAR VOLUME 88.4 fl (82.0-101.0); MEAN PLATELET VOLUME 9.6 fl (7.4-10.4); MONOCYTE # 0.4 10^3/ul (0.3-0.9); MONOCYTES % 5.3 % (0.0-11.0); NEUTROPHIL # 6.4 10^3/ul (1.6-7.5); NEUTROPHILS % 89.2 % (39.0-77.0); PLATELET COUNT 344 10^3/UL (140-415); RED BLOOD COUNT 3.61 10^6/ul (4.20-5.40); RED CELL DISTRIBUTION WIDTH 19.9 % (11.5-14.5)
[2017-07-29] MEDS: DEXAMETHASONE 10 MG/ML 1 ML INJ IV ×3 (06:05→22:01)
[2017-07-29] MEDS: PANTOPRAZOLE (EC) 40 MG TAB PO (06:05)
[2017-07-29 06:10] LABS: POSITIVE DIFF @See below
[2017-07-29 06:24] LABS: ALBUMIN 3.3 g/dl (3.3-4.9); ANION GAP 12 (8-16); BLOOD UREA NITROGEN 21 mg/dl (7-20); CARBON DIOXIDE 31 mmol/L (21-31); CHLORIDE 101 mmol/L (97-110); CREATININE 0.53 mg/dl (0.44-1.00); GLUCOSE 119 mg/dl (70-220); MAGNESIUM 2.3 mg/dl (1.7-2.5); PHOSPHORUS 4.4 mg/dl (2.5-4.9); POTASSIUM 4.4 mmol/L (3.5-5.1); SODIUM 140 mmol/L (135-144)
[2017-07-29] MEDS: ALBUTEROL HFA 8 GM INHALER INH ×4 (09:32→21:59)
[2017-07-29] MEDS: BUSPIRONE 5 MG TAB PO ×2 (09:33→21:59)
[2017-07-29] MEDS: CALCIUM CARBONATE 1.25 GM TAB PO (09:33)
[2017-07-29] MEDS: MECLIZINE 25 MG TAB PO ×3 (09:34→22:00)
[2017-07-29] MEDS: GABAPENTIN 100 MG CAP PO ×3 (09:34→21:59)
[2017-07-29] MEDS: GUAIFENESIN LA 600 MG TABSR PO ×2 (09:35→22:00)
[2017-07-29] MEDS: LETROZOLE 2.5 MG TAB PO (09:37)
[2017-07-29] MEDS: ENOXAPARIN 100 MG/ML SYG SC ×2 (09:37→22:03)
[2017-07-29] MEDS: LISINOPRIL 5 MG TAB PO (09:39)
[2017-07-29] MEDS: TIZANIDINE 2 MG TAB PO ×3 (09:40→21:59)
[2017-07-29] MEDS: morphine (ER) 30 MG TAB PO ×2 (09:42→22:00)
[2017-07-29] MEDS: traZODone 50 MG TAB PO (21:59)
[2017-07-29] MEDS: DOCUSATE SODIUM 100 MG CAP PO (22:10)
[2017-07-29] MEDS: LORAZEPAM 2 MG INJ IV (22:56)
[2017-07-30] MEDS: ALBUTEROL HFA 8 GM INHALER INH ×6 (01:00→21:18)
[2017-07-30] MEDS: PANTOPRAZOLE (EC) 40 MG TAB PO (05:45)
[2017-07-30] MEDS: DEXAMETHASONE 10 MG/ML 1 ML INJ IV ×3 (05:45→21:19)
[2017-07-30 05:46] LABS: ADD MAN DIFF? NO
[2017-07-30 05:50] LABS: WHITE BLOOD COUNT 8.2 10^3/ul (4.8-10.8)
[2017-07-30 05:50] LABS: ABNORMAL IP MESSAGE 1; HEMATOCRIT 31.4 % (37.0-47.0); HEMOGLOBIN 10.2 g/dl (12.0-16.0); LYMPHOCYTES # 0.4 10^3/ul (0.8-2.9); LYMPHOCYTES % 4.3 % (15.0-51.0); MEAN CORPUSCULAR HEMOGLOBIN 28.8 pg (29.0-33.0); MEAN CORPUSCULAR HGB CONC 32.5 g/dl (32.0-37.0); MEAN CORPUSCULAR VOLUME 88.7 fl (82.0-101.0); MEAN PLATELET VOLUME 9.8 fl (7.4-10.4); MONOCYTE # 0.5 10^3/ul (0.3-0.9); MONOCYTES % 5.6 % (0.0-11.0); NEUTROPHIL # 7.2 10^3/ul (1.6-7.5); PLATELET COUNT 302 10^3/UL (140-415); RED BLOOD COUNT 3.54 10^6/ul (4.20-5.40); RED CELL DISTRIBUTION WIDTH 20.1 % (11.5-14.5)
[2017-07-30 06:06] LABS: POSITIVE DIFF @See below
[2017-07-30 06:23] LABS: ALBUMIN 3.6 g/dl (3.3-4.9); ANION GAP 13 (8-16); BLOOD UREA NITROGEN 19 mg/dl (7-20); CALCIUM 9.2 mg/dl (8.4-10.2); CARBON DIOXIDE 30 mmol/L (21-31); CHLORIDE 100 mmol/L (97-110); CREATININE 0.52 mg/dl (0.44-1.00); GLUCOSE 141 mg/dl (70-220); MAGNESIUM 2.1 mg/dl (1.7-2.5); PHOSPHORUS 4.2 mg/dl (2.5-4.9); POTASSIUM 4.1 mmol/L (3.5-5.1); SODIUM 139 mmol/L (135-144)
[2017-07-30] MEDS: GABAPENTIN 100 MG CAP PO ×3 (09:10→21:18)
[2017-07-30] MEDS: GUAIFENESIN LA 600 MG TABSR PO ×2 (09:10→21:18)
[2017-07-30] MEDS: BUSPIRONE 5 MG TAB PO ×2 (09:10→21:19)
[2017-07-30] MEDS: CALCIUM CARBONATE 1.25 GM TAB PO (09:10)
[2017-07-30] MEDS: TIZANIDINE 2 MG TAB PO ×3 (09:10→21:18)
[2017-07-30] MEDS: MECLIZINE 25 MG TAB PO ×3 (09:10→21:19)
[2017-07-30] MEDS: SENNA/DOCUSATE NA (8.6MG/50MG) TAB PO (09:10)
[2017-07-30] MEDS: morphine (ER) 30 MG TAB PO ×2 (09:11→21:19)
[2017-07-30] MEDS: LISINOPRIL 5 MG TAB PO (09:11)
[2017-07-30] MEDS: ENOXAPARIN 100 MG/ML SYG SC ×2 (09:19→21:21)
[2017-07-30] MEDS: LORAZEPAM 2 MG INJ IV ×2 (09:25→23:39)
[2017-07-30] MEDS: LETROZOLE 2.5 MG TAB PO (13:21)
[2017-07-30] MEDS: traZODone 50 MG TAB PO (21:19)
[2017-07-31] MEDS: ALBUTEROL HFA 8 GM INHALER INH ×6 (01:00→21:00)
[2017-07-31] MEDS: HYDROmorphONE 0.5 MG/0.5 ML SYG IV (03:29)
[2017-07-31] MEDS: DEXAMETHASONE 10 MG/ML 1 ML INJ IV (05:49)
[2017-07-31] MEDS: PANTOPRAZOLE (EC) 40 MG TAB PO (05:49)
[2017-07-31] MEDS: BISACODYL 10 MG SUPP PR (05:56)
[2017-07-31] MEDS: GABAPENTIN 100 MG CAP PO ×3 (08:51→21:17)
[2017-07-31] MEDS: BUSPIRONE 5 MG TAB PO ×2 (08:51→21:18)
[2017-07-31] MEDS: morphine (ER) 30 MG TAB PO ×2 (08:52→21:18)
[2017-07-31] MEDS: CALCIUM CARBONATE 1.25 GM TAB PO (08:52)
[2017-07-31] MEDS: GUAIFENESIN LA 600 MG TABSR PO ×2 (08:52→21:18)
[2017-07-31] MEDS: SENNA/DOCUSATE NA (8.6MG/50MG) TAB PO (08:53)
[2017-07-31] MEDS: TIZANIDINE 2 MG TAB PO ×3 (08:53→21:17)
[2017-07-31] MEDS: MECLIZINE 25 MG TAB PO ×3 (08:53→21:31)
[2017-07-31] MEDS: LISINOPRIL 5 MG TAB PO (08:54)
[2017-07-31] MEDS: ENOXAPARIN 100 MG/ML SYG SC ×2 (09:01→21:26)
[2017-07-31] MEDS: LORAZEPAM 2 MG INJ IV (10:28)
[2017-07-31] MEDS: DEXAMETHASONE 4 MG/ML 1 ML INJ IV ×2 (13:03→21:18)
[2017-07-31] MEDS: LETROZOLE 2.5 MG TAB PO (13:13)
[2017-07-31] MEDS: ONDANSETRON 4 MG INJ IV (19:33)
[2017-07-31] MEDS: traZODone 50 MG TAB PO (21:17)
[2017-07-31] MEDS: HYDROmorphONE 2 MG TAB PO (22:41)
[2017-07-31] MEDS: LORAZEPAM 1 MG TAB PO (23:14)
[2017-08-01] MEDS: ALBUTEROL HFA 8 GM INHALER INH ×6 (01:00→21:00)
[2017-08-01] MEDS: PANTOPRAZOLE (EC) 40 MG TAB PO (06:43)
[2017-08-01] MEDS: DEXAMETHASONE 4 MG/ML 1 ML INJ IV ×3 (06:43→21:42)
[2017-08-01] MEDS: LORAZEPAM 2 MG INJ IV (08:50)
[2017-08-01] MEDS: TIZANIDINE 2 MG TAB PO ×3 (09:36→21:31)
[2017-08-01] MEDS: BUSPIRONE 5 MG TAB PO ×2 (09:36→21:31)
[2017-08-01] MEDS: MECLIZINE 25 MG TAB PO ×3 (09:36→21:31)
[2017-08-01] MEDS: GUAIFENESIN LA 600 MG TABSR PO ×2 (09:36→21:32)
[2017-08-01] MEDS: SENNA/DOCUSATE NA (8.6MG/50MG) TAB PO (09:36)
[2017-08-01] MEDS: LISINOPRIL 5 MG TAB PO (09:37)
[2017-08-01] MEDS: CALCIUM CARBONATE 1.25 GM TAB PO (09:37)
[2017-08-01] MEDS: morphine (ER) 30 MG TAB PO ×2 (09:37→21:32)
[2017-08-01] MEDS: GABAPENTIN 100 MG CAP PO ×3 (09:37→21:31)
[2017-08-01] MEDS: ENOXAPARIN 100 MG/ML SYG SC ×2 (09:44→21:40)
[2017-08-01] MEDS: LETROZOLE 2.5 MG TAB PO (10:37)
[2017-08-01] MEDS: traZODone 50 MG TAB PO (21:31)
[2017-08-01] MEDS: BISACODYL 10 MG SUPP PR (22:28)
[2017-08-01] MEDS: LORAZEPAM 1 MG TAB PO (23:52)
[2017-08-02] MEDS: HYDROmorphONE 2 MG TAB PO ×2 (00:30→13:38)
[2017-08-02] MEDS: ALBUTEROL HFA 8 GM INHALER INH ×6 (01:00→21:00)
[2017-08-02] MEDS: DEXAMETHASONE 4 MG/ML 1 ML INJ IV ×3 (05:51→21:38)
[2017-08-02] MEDS: PANTOPRAZOLE (EC) 40 MG TAB PO (05:51)
[2017-08-02] MEDS: GUAIFENESIN LA 600 MG TABSR PO ×2 (08:36→21:13)
[2017-08-02] MEDS: MAGNESIUM HYDROXIDE 30ML CUP PO ×2 (08:36→22:00)
[2017-08-02] MEDS: SENNA/DOCUSATE NA (8.6MG/50MG) TAB PO (08:37)
[2017-08-02] MEDS: TIZANIDINE 2 MG TAB PO ×3 (08:37→21:15)
[2017-08-02] MEDS: CALCIUM CARBONATE 1.25 GM TAB PO (08:37)
[2017-08-02] MEDS: BUSPIRONE 5 MG TAB PO ×2 (08:37→21:13)
[2017-08-02] MEDS: MECLIZINE 25 MG TAB PO ×3 (08:37→21:15)
[2017-08-02] MEDS: GABAPENTIN 100 MG CAP PO ×3 (08:37→21:13)
[2017-08-02] MEDS: LISINOPRIL 5 MG TAB PO (08:38)
[2017-08-02] MEDS: morphine (ER) 30 MG TAB PO ×2 (08:38→21:14)
[2017-08-02] MEDS: ENOXAPARIN 100 MG/ML SYG SC ×2 (08:40→21:25)
[2017-08-02] MEDS: LETROZOLE 2.5 MG TAB PO (08:41)
[2017-08-02] MEDS: traZODone 50 MG TAB PO (21:23)
[2017-08-02] MEDS: LORAZEPAM 1 MG TAB PO (22:00)
[2017-08-02] MEDS: BISACODYL 10 MG SUPP PR (22:00)
[2017-08-03] MEDS: ALBUTEROL HFA 8 GM INHALER INH ×6 (01:40→21:15)
[2017-08-03] MEDS: PANTOPRAZOLE (EC) 40 MG TAB PO (05:41)
[2017-08-03] MEDS: DEXAMETHASONE 4 MG/ML 1 ML INJ IV ×3 (05:41→21:18)
[2017-08-03 05:48] LABS: ADD MAN DIFF? NO
[2017-08-03 06:01] LABS: ABNORMAL IP MESSAGE 1; BASOPHILS % 0.1 % (0.0-2.0); EOSINOPHILS % 0.1 % (0.0-7.0); HEMATOCRIT 32.5 % (37.0-47.0); HEMOGLOBIN 10.4 g/dl (12.0-16.0); LYMPHOCYTES # 0.4 10^3/ul (0.8-2.9); LYMPHOCYTES % 4.7 % (15.0-51.0); MEAN CORPUSCULAR HEMOGLOBIN 28.7 pg (29.0-33.0); MEAN CORPUSCULAR VOLUME 89.5 fl (82.0-101.0); MEAN PLATELET VOLUME 9.6 fl (7.4-10.4); MONOCYTE # 0.5 10^3/ul (0.3-0.9); MONOCYTES % 5.4 % (0.0-11.0); NEUTROPHIL # 7.4 10^3/ul (1.6-7.5); NEUTROPHILS % 87.8 % (39.0-77.0); NUCLEATED RED BLOOD CELLS% 0.4 /100WBC (0.0-0.0); PLATELET COUNT 236 10^3/UL (140-415); RED BLOOD COUNT 3.63 10^6/ul (4.20-5.40); RED CELL DISTRIBUTION WIDTH 20.7 % (11.5-14.5)
[2017-08-03 06:01] LABS: WHITE BLOOD COUNT 8.4 10^3/ul (4.8-10.8)
[2017-08-03 06:25] LABS: ALBUMIN 3.6 g/dl (3.3-4.9); ANION GAP 14 (8-16); BLOOD UREA NITROGEN 21 mg/dl (7-20); CARBON DIOXIDE 34 mmol/L (21-31); CHLORIDE 96 mmol/L (97-110); CREATININE 0.51 mg/dl (0.44-1.00); GLUCOSE 98 mg/dl (70-220); MAGNESIUM 2.5 mg/dl (1.7-2.5); PHOSPHORUS 3.9 mg/dl (2.5-4.9); POSITIVE DIFF @See below; POTASSIUM 4.2 mmol/L (3.5-5.1); SODIUM 140 mmol/L (135-144)
[2017-08-03] MEDS: BUSPIRONE 5 MG TAB PO ×2 (09:07→21:17)
[2017-08-03] MEDS: MECLIZINE 25 MG TAB PO ×3 (09:07→21:15)
[2017-08-03] MEDS: SENNA/DOCUSATE NA (8.6MG/50MG) TAB PO (09:08)
[2017-08-03] MEDS: GUAIFENESIN LA 600 MG TABSR PO ×2 (09:08→21:16)
[2017-08-03] MEDS: CALCIUM CARBONATE 1.25 GM TAB PO (09:08)
[2017-08-03] MEDS: GABAPENTIN 100 MG CAP PO ×3 (09:08→21:16)
[2017-08-03] MEDS: LISINOPRIL 5 MG TAB PO (09:08)
[2017-08-03] MEDS: TIZANIDINE 2 MG TAB PO ×3 (09:09→21:15)
[2017-08-03] MEDS: morphine (ER) 30 MG TAB PO ×2 (09:09→21:19)
[2017-08-03] MEDS: LETROZOLE 2.5 MG TAB PO (09:10)
[2017-08-03] MEDS: ENOXAPARIN 100 MG/ML SYG SC ×2 (09:10→21:21)
[2017-08-03] MEDS: LORAZEPAM 1 MG TAB PO ×2 (09:20→21:15)
[2017-08-03] MEDS: MAGNESIUM HYDROXIDE 30ML CUP PO (21:14)
[2017-08-03] MEDS: traZODone 50 MG TAB PO (21:15)
[2017-08-03] MEDS: BISACODYL 10 MG SUPP PR (21:15)
[2017-08-04] MEDS: ALBUTEROL HFA 8 GM INHALER INH ×7 (00:33→21:00)
[2017-08-04 05:13] LABS: ADD MAN DIFF? NO
[2017-08-04 05:20] LABS: WHITE BLOOD COUNT 7.3 10^3/ul (4.8-10.8)
[2017-08-04 05:20] LABS: ABNORMAL IP MESSAGE 1; EOSINOPHILS % 0.1 % (0.0-7.0); HEMATOCRIT 31.2 % (37.0-47.0); HEMOGLOBIN 10.2 g/dl (12.0-16.0); LYMPHOCYTES # 0.3 10^3/ul (0.8-2.9); MEAN CORPUSCULAR HEMOGLOBIN 29.1 pg (29.0-33.0); MEAN CORPUSCULAR HGB CONC 32.7 g/dl (32.0-37.0); MEAN CORPUSCULAR VOLUME 89.1 fl (82.0-101.0); MEAN PLATELET VOLUME 9.6 fl (7.4-10.4); MONOCYTE # 0.5 10^3/ul (0.3-0.9); MONOCYTES % 6.7 % (0.0-11.0); NEUTROPHIL # 6.4 10^3/ul (1.6-7.5); NEUTROPHILS % 87.8 % (39.0-77.0); NUCLEATED RED BLOOD CELLS% 0.3 /100WBC (0.0-0.0); PLATELET COUNT 229 10^3/UL (140-415); RED CELL DISTRIBUTION WIDTH 20.6 % (11.5-14.5)
[2017-08-04 05:33] LABS: ALBUMIN 3.5 g/dl (3.3-4.9); ANION GAP 14 (8-16); BLOOD UREA NITROGEN 24 mg/dl (7-20); CALCIUM 8.9 mg/dl (8.4-10.2); CARBON DIOXIDE 32 mmol/L (21-31); CHLORIDE 97 mmol/L (97-110); CREATININE 0.49 mg/dl (0.44-1.00); GLUCOSE 98 mg/dl (70-220); MAGNESIUM 2.4 mg/dl (1.7-2.5); PHOSPHORUS 4.2 mg/dl (2.5-4.9); POTASSIUM 4.2 mmol/L (3.5-5.1); SODIUM 139 mmol/L (135-144)
[2017-08-04] MEDS: LORAZEPAM 1 MG TAB PO ×2 (05:35→21:18)
[2017-08-04] MEDS: PANTOPRAZOLE (EC) 40 MG TAB PO (05:35)
[2017-08-04 06:24] LABS: POSITIVE DIFF @See below
[2017-08-04] MEDS: morphine (ER) 30 MG TAB PO ×2 (09:00→21:21)
[2017-08-04] MEDS: MECLIZINE 25 MG TAB PO ×3 (09:00→21:17)
[2017-08-04] MEDS: CALCIUM CARBONATE 1.25 GM TAB PO (09:50)
[2017-08-04] MEDS: TIZANIDINE 2 MG TAB PO ×3 (09:50→21:18)
[2017-08-04] MEDS: GUAIFENESIN LA 600 MG TABSR PO ×2 (09:50→21:17)
[2017-08-04] MEDS: SENNA/DOCUSATE NA (8.6MG/50MG) TAB PO (09:53)
[2017-08-04] MEDS: GABAPENTIN 100 MG CAP PO ×3 (09:53→21:18)
[2017-08-04] MEDS: BUSPIRONE 5 MG TAB PO ×2 (09:54→21:18)
[2017-08-04] MEDS: DEXAMETHASONE 4 MG/ML 1 ML INJ IV ×2 (09:54→21:18)
[2017-08-04] MEDS: LISINOPRIL 5 MG TAB PO (09:55)
[2017-08-04] MEDS: LETROZOLE 2.5 MG TAB PO (10:00)
[2017-08-04] MEDS: ENOXAPARIN 100 MG/ML SYG SC ×2 (10:00→21:26)
[2017-08-04] MEDS: SUCRALFATE (100 MG/ML) 10ML CUP PO ×3 (13:35→21:19)
[2017-08-04] MEDS: DOCUSATE SODIUM 100 MG CAP PO ×2 (13:36→21:17)
[2017-08-04] MEDS: HYDROmorphONE 2 MG TAB PO (17:32)
[2017-08-04 18:49] LABS: ADD UMIC YES; UR ASCORBIC ACID NEGATIVE (NEGATIVE); UR BILIRUBIN (Dip) NEGATIVE (NEGATIVE); UR BLOOD (Dip) 1+ mg/dL (NEGATIVE); UR CLARITY CLEAR (CLEAR); UR COLOR STRAW (YELLOW); UR GLUCOSE (Dip) NEGATIVE (NEGATIVE); UR KETONES (Dip) NEGATIVE (NEGATIVE); UR LEUKOCYTE ESTERASE (Dip) TRACE Leu/ul (NEGATIVE); UR NITRITE (Dip) NEGATIVE (NEGATIVE); UR RBC 3 /HPF (0-5); UR SPECIFIC GRAVITY (Dip) 1.009 (1.003-1.030); UR TOTAL PROTEIN (Dip) NEGATIVE (NEGATIVE); UR UROBILINOGEN (Dip) NEGATIVE (NEGATIVE); UR WBC 1 /HPF (0-5)
[2017-08-04] MEDS: traZODone 50 MG TAB PO (21:17)
[2017-08-04] MEDS: CEPASTAT LOZENGE MT (21:18)
[2017-08-04] MEDS: MAGNESIUM HYDROXIDE 30ML CUP PO (21:19)
[2017-08-05] MEDS: ALBUTEROL HFA 8 GM INHALER INH ×3 (01:00→09:42)
[2017-08-05 05:25] LABS: ADD MAN DIFF? NO
[2017-08-05 05:30] LABS: WHITE BLOOD COUNT 6.4 10^3/ul (4.8-10.8)
[2017-08-05 05:30] LABS: ABNORMAL IP MESSAGE 1; BASOPHILS % 0.2 % (0.0-2.0); EOSINOPHILS % 0.2 % (0.0-7.0); HEMATOCRIT 31.4 % (37.0-47.0); HEMOGLOBIN 10.3 g/dl (12.0-16.0); LYMPHOCYTES # 0.3 10^3/ul (0.8-2.9); MEAN CORPUSCULAR HEMOGLOBIN 29.8 pg (29.0-33.0); MEAN CORPUSCULAR HGB CONC 32.8 g/dl (32.0-37.0); MEAN CORPUSCULAR VOLUME 90.8 fl (82.0-101.0); MEAN PLATELET VOLUME 9.7 fl (7.4-10.4); MONOCYTE # 0.4 10^3/ul (0.3-0.9); MONOCYTES % 6.4 % (0.0-11.0); NEUTROPHIL # 5.6 10^3/ul (1.6-7.5); NEUTROPHILS % 86.3 % (39.0-77.0); NUCLEATED RED BLOOD CELLS% 0.5 /100WBC (0.0-0.0); PLATELET COUNT 223 10^3/UL (140-415); RED BLOOD COUNT 3.46 10^6/ul (4.20-5.40); RED CELL DISTRIBUTION WIDTH 20.4 % (11.5-14.5)
[2017-08-05 06:04] LABS: ALBUMIN 3.4 g/dl (3.3-4.9); ANION GAP 11 (8-16); BLOOD UREA NITROGEN 20 mg/dl (7-20); CALCIUM 8.8 mg/dl (8.4-10.2); CARBON DIOXIDE 32 mmol/L (21-31); CHLORIDE 99 mmol/L (97-110); CREATININE 0.44 mg/dl (0.44-1.00); GLUCOSE 96 mg/dl (70-220); MAGNESIUM 2.5 mg/dl (1.7-2.5); PHOSPHORUS 4.1 mg/dl (2.5-4.9); POTASSIUM 4.5 mmol/L (3.5-5.1); SODIUM 137 mmol/L (135-144)
[2017-08-05 06:19] LABS: POSITIVE DIFF @See below
[2017-08-05] MEDS: PANTOPRAZOLE (EC) 40 MG TAB PO (06:28)
[2017-08-05] MEDS: morphine (ER) 30 MG TAB PO ×2 (09:41→21:21)
[2017-08-05] MEDS: HYDROmorphONE 2 MG TAB PO ×2 (09:41→16:39)
[2017-08-05] MEDS: DEXAMETHASONE 4 MG/ML 1 ML INJ IV (09:42)
[2017-08-05] MEDS: TIZANIDINE 2 MG TAB PO (09:43)
[2017-08-05] MEDS: DOCUSATE SODIUM 100 MG CAP PO ×2 (09:45→21:26)
[2017-08-05] MEDS: SENNA/DOCUSATE NA (8.6MG/50MG) TAB PO (09:45)
[2017-08-05] MEDS: GUAIFENESIN LA 600 MG TABSR PO ×2 (09:45→21:22)
[2017-08-05] MEDS: BUSPIRONE 5 MG TAB PO ×2 (09:46→21:21)
[2017-08-05] MEDS: CALCIUM CARBONATE 1.25 GM TAB PO (09:46)
[2017-08-05] MEDS: GABAPENTIN 100 MG CAP PO ×3 (09:46→21:21)
[2017-08-05] MEDS: MECLIZINE 25 MG TAB PO ×3 (09:46→21:22)
[2017-08-05] MEDS: SUCRALFATE (100 MG/ML) 10ML CUP PO ×4 (09:47→21:21)
[2017-08-05] MEDS: LISINOPRIL 5 MG TAB PO (09:47)
[2017-08-05] MEDS: LETROZOLE 2.5 MG TAB PO (09:48)
[2017-08-05] MEDS: ENOXAPARIN 100 MG/ML SYG SC ×2 (09:49→21:32)
[2017-08-05] MEDS: LORAZEPAM 1 MG TAB PO ×2 (10:38→22:43)
[2017-08-05] MEDS: LEVOFLOXACIN 500 MG TAB PO (12:01)
[2017-08-05] MEDS: CEPASTAT LOZENGE MT (12:07)
[2017-08-05] MEDS: GUAIFENESIN/CODEINE 5ML CUP PO (12:07)
[2017-08-05] MEDS: POLYETHYLENE GLYCOL 17 GM PACKET PO (12:07)
[2017-08-05] MEDS ORDERED: METHOCARBAMOL 500 MG TAB PO (13:00)
[2017-08-05] MEDS: traZODone 50 MG TAB PO (21:22)
[2017-08-05] MEDS: DEXAMETHASONE 4 MG TAB PO (21:22)
[2017-08-05] MEDS: CARISOPRODOL 350 MG TAB PO (21:34)
[2017-08-06] MEDS: PANTOPRAZOLE (EC) 40 MG TAB PO (05:50)
[2017-08-06] MEDS: LEVOFLOXACIN 500 MG TAB PO (05:51)
[2017-08-06] MEDS: SUCRALFATE (100 MG/ML) 10ML CUP PO ×4 (09:21→21:07)
[2017-08-06] MEDS: POLYETHYLENE GLYCOL 17 GM PACKET PO (09:21)
[2017-08-06] MEDS: SENNA/DOCUSATE NA (8.6MG/50MG) TAB PO (09:22)
[2017-08-06] MEDS: GUAIFENESIN LA 600 MG TABSR PO ×2 (09:22→21:00)
[2017-08-06] MEDS: CALCIUM CARBONATE 1.25 GM TAB PO (09:22)
[2017-08-06] MEDS: GABAPENTIN 100 MG CAP PO ×3 (09:30→21:00)
[2017-08-06] MEDS: DEXAMETHASONE 4 MG TAB PO ×2 (09:30→21:01)
[2017-08-06] MEDS: MECLIZINE 25 MG TAB PO ×3 (09:30→21:02)
[2017-08-06] MEDS: CARISOPRODOL 350 MG TAB PO ×2 (09:30→21:02)
[2017-08-06] MEDS: LETROZOLE 2.5 MG TAB PO (09:33)
[2017-08-06] MEDS: ENOXAPARIN 100 MG/ML SYG SC ×2 (09:34→21:12)
[2017-08-06] MEDS: morphine (ER) 30 MG TAB PO ×2 (09:35→21:02)
[2017-08-06] MEDS: BUSPIRONE 5 MG TAB PO ×2 (09:36→21:01)
[2017-08-06] MEDS: DOCUSATE SODIUM 100 MG CAP PO ×2 (09:36→20:59)
[2017-08-06] MEDS: ONDANSETRON 4 MG INJ IV (12:28)
[2017-08-06] MEDS: LISINOPRIL 5 MG TAB PO (12:36)
[2017-08-06] MEDS: MAGNESIUM HYDROXIDE 30ML CUP PO (17:37)
[2017-08-06] MEDS: ACETAMINOPHEN 325 MG TAB PO (17:37)
[2017-08-06] MEDS: traZODone 50 MG TAB PO (21:00)
[2017-08-06] MEDS: BISACODYL 10 MG SUPP PR (21:52)
[2017-08-06] MEDS: LACTULOSE 30ML CUP PO (23:28)
[2017-08-07] MEDS: NA PHOSPHATE/BIPHOS 133 ML ENEMA PR (03:37)
[2017-08-07] MEDS: HYDROmorphONE 2 MG TAB PO ×3 (04:17→18:57)
[2017-08-07] MEDS: ACETAMINOPHEN 325 MG TAB PO (04:18)
[2017-08-07] MEDS: LORAZEPAM 1 MG TAB PO ×2 (04:53→17:16)
[2017-08-07] MEDS: PANTOPRAZOLE (EC) 40 MG TAB PO (05:18)
[2017-08-07] MEDS: LACTULOSE 30ML CUP PO (05:18)
[2017-08-07] MEDS: LEVOFLOXACIN 500 MG TAB PO (05:18)
[2017-08-07] MEDS: LISINOPRIL 5 MG TAB PO (09:00)
[2017-08-07] MEDS: CALCIUM CARBONATE 1.25 GM TAB PO (10:14)
[2017-08-07] MEDS: GUAIFENESIN LA 600 MG TABSR PO ×2 (10:14→21:16)
[2017-08-07] MEDS: SENNA/DOCUSATE NA (8.6MG/50MG) TAB PO (10:17)
[2017-08-07] MEDS: DOCUSATE SODIUM 100 MG CAP PO ×2 (10:17→20:55)
[2017-08-07] MEDS: DEXAMETHASONE 4 MG TAB PO ×2 (10:17→20:58)
[2017-08-07] MEDS: SUCRALFATE (100 MG/ML) 10ML CUP PO ×4 (10:17→20:58)
[2017-08-07] MEDS: GABAPENTIN 100 MG CAP PO ×3 (10:17→20:56)
[2017-08-07] MEDS: CARISOPRODOL 350 MG TAB PO ×2 (10:18→20:56)
[2017-08-07] MEDS: BUSPIRONE 5 MG TAB PO ×2 (10:18→20:56)
[2017-08-07] MEDS: morphine (ER) 30 MG TAB PO ×2 (10:18→20:56)
[2017-08-07] MEDS: MECLIZINE 25 MG TAB PO ×3 (10:18→20:56)
[2017-08-07] MEDS: POLYETHYLENE GLYCOL 17 GM PACKET PO (10:19)
[2017-08-07] MEDS: ENOXAPARIN 100 MG/ML SYG SC ×2 (10:21→21:01)
[2017-08-07] MEDS: LETROZOLE 2.5 MG TAB PO (10:22)
[2017-08-07] MEDS: traZODone 50 MG TAB PO (20:56)
[2017-08-08] MEDS: LEVOFLOXACIN 500 MG TAB PO (05:32)
[2017-08-08] MEDS: PANTOPRAZOLE (EC) 40 MG TAB PO (05:32)
[2017-08-08] MEDS: LACTULOSE 30ML CUP PO (05:36)
[2017-08-08] MEDS: BISACODYL 10 MG SUPP PR (05:36)
[2017-08-08] MEDS: NA PHOSPHATE/BIPHOS 133 ML ENEMA PR (05:41)
[2017-08-08] MEDS: HYDROmorphONE 2 MG TAB PO ×2 (06:40→17:33)
[2017-08-08] MEDS: ACETAMINOPHEN 325 MG TAB PO (06:40)
[2017-08-08] MEDS: CALCIUM CARBONATE 1.25 GM TAB PO (08:59)
[2017-08-08] MEDS: SENNA/DOCUSATE NA (8.6MG/50MG) TAB PO (08:59)
[2017-08-08] MEDS: GUAIFENESIN LA 600 MG TABSR PO ×2 (08:59→21:04)
[2017-08-08] MEDS: GABAPENTIN 100 MG CAP PO ×3 (08:59→21:05)
[2017-08-08] MEDS: DOCUSATE SODIUM 100 MG CAP PO ×2 (09:00→21:05)
[2017-08-08] MEDS: BUSPIRONE 5 MG TAB PO ×2 (09:01→21:04)
[2017-08-08] MEDS: POLYETHYLENE GLYCOL 17 GM PACKET PO (09:01)
[2017-08-08] MEDS: morphine (ER) 30 MG TAB PO ×2 (09:06→21:05)
[2017-08-08] MEDS: CARISOPRODOL 350 MG TAB PO ×2 (09:06→21:05)
[2017-08-08] MEDS: DEXAMETHASONE 4 MG TAB PO ×2 (09:08→21:04)
[2017-08-08] MEDS: ENOXAPARIN 100 MG/ML SYG SC ×2 (09:12→21:12)
[2017-08-08] MEDS: LISINOPRIL 5 MG TAB PO (09:15)
[2017-08-08] MEDS: LETROZOLE 2.5 MG TAB PO (09:20)
[2017-08-08] MEDS: SUCRALFATE (100 MG/ML) 10ML CUP PO ×5 (09:33→23:59)
[2017-08-08] MEDS: MECLIZINE 25 MG TAB PO ×3 (09:33→21:05)
[2017-08-08] MEDS: LORAZEPAM 1 MG TAB PO (13:56)
[2017-08-08] MEDS: traZODone 50 MG TAB PO (21:05)
[2017-08-08] MEDS: CEPASTAT LOZENGE MT (21:12)
[2017-08-09] MEDS: PANTOPRAZOLE (EC) 40 MG TAB PO (05:54)
[2017-08-09] MEDS: LEVOFLOXACIN 500 MG TAB PO (05:55)
[2017-08-09] MEDS: SUCRALFATE (100 MG/ML) 10ML CUP PO ×4 (08:26→21:05)
[2017-08-09] MEDS: POLYETHYLENE GLYCOL 17 GM PACKET PO (08:26)
[2017-08-09] MEDS: morphine (ER) 30 MG TAB PO ×2 (08:26→21:04)
[2017-08-09] MEDS: DEXAMETHASONE 4 MG TAB PO ×2 (08:27→21:05)
[2017-08-09] MEDS: GUAIFENESIN LA 600 MG TABSR PO ×2 (08:27→21:05)
[2017-08-09] MEDS: MECLIZINE 25 MG TAB PO ×3 (08:27→21:04)
[2017-08-09] MEDS: BUSPIRONE 5 MG TAB PO ×2 (08:27→21:04)
[2017-08-09] MEDS: CALCIUM CARBONATE 1.25 GM TAB PO (08:27)
[2017-08-09] MEDS: GABAPENTIN 100 MG CAP PO ×3 (08:27→21:05)
[2017-08-09] MEDS: CARISOPRODOL 350 MG TAB PO ×2 (08:27→21:04)
[2017-08-09] MEDS: SENNA/DOCUSATE NA (8.6MG/50MG) TAB PO (08:27)
[2017-08-09] MEDS: LETROZOLE 2.5 MG TAB PO (08:28)
[2017-08-09] MEDS: ENOXAPARIN 100 MG/ML SYG SC ×2 (08:28→21:08)
[2017-08-09] MEDS: DOCUSATE SODIUM 100 MG CAP PO ×2 (08:28→21:05)
[2017-08-09] MEDS: LISINOPRIL 5 MG TAB PO (08:29)
[2017-08-09] MEDS: HYDROmorphONE 2 MG TAB PO ×2 (15:12→22:41)
[2017-08-09] MEDS: LORAZEPAM 1 MG TAB PO (19:01)
[2017-08-09] MEDS: traZODone 50 MG TAB PO (21:04)
[2017-08-10] MEDS: LEVOFLOXACIN 500 MG TAB PO (05:42)
[2017-08-10] MEDS: LORAZEPAM 1 MG TAB PO ×2 (05:42→22:01)
[2017-08-10] MEDS: PANTOPRAZOLE (EC) 40 MG TAB PO (05:42)
[2017-08-10 05:43] LABS: ADD MAN DIFF? NO
[2017-08-10 05:48] LABS: ABNORMAL IP MESSAGE 1; BASOPHILS % 0.2 % (0.0-2.0); EOSINOPHILS % 0.5 % (0.0-7.0); HEMOGLOBIN 9.2 g/dl (12.0-16.0); LYMPHOCYTES # 0.3 10^3/ul (0.8-2.9); LYMPHOCYTES % 5.7 % (15.0-51.0); MEAN CORPUSCULAR HEMOGLOBIN 29.5 pg (29.0-33.0); MEAN CORPUSCULAR HGB CONC 31.7 g/dl (32.0-37.0); MEAN CORPUSCULAR VOLUME 92.9 fl (82.0-101.0); MEAN PLATELET VOLUME 9.3 fl (7.4-10.4); MONOCYTE # 0.5 10^3/ul (0.3-0.9); MONOCYTES % 9.7 % (0.0-11.0); NEUTROPHIL # 4.6 10^3/ul (1.6-7.5); NEUTROPHILS % 81.9 % (39.0-77.0); NUCLEATED RED BLOOD CELLS% 0.7 /100WBC (0.0-0.0); PLATELET COUNT 229 10^3/UL (140-415); RED BLOOD COUNT 3.12 10^6/ul (4.20-5.40); RED CELL DISTRIBUTION WIDTH 20.9 % (11.5-14.5)
[2017-08-10 05:48] LABS: WHITE BLOOD COUNT 5.6 10^3/ul (4.8-10.8)
[2017-08-10 05:56] LABS: POSITIVE DIFF @See below
[2017-08-10 06:13] LABS: ANION GAP 6 (8-16); BLOOD UREA NITROGEN 20 mg/dl (7-20); CALCIUM 8.9 mg/dl (8.4-10.2); CARBON DIOXIDE 36 mmol/L (21-31); CHLORIDE 98 mmol/L (97-110); CREATININE 0.52 mg/dl (0.44-1.00); GLUCOSE 98 mg/dl (70-220); MAGNESIUM 2.3 mg/dl (1.7-2.5); PHOSPHORUS 3.7 mg/dl (2.5-4.9); SODIUM 136 mmol/L (135-144)
[2017-08-10] MEDS: DOCUSATE SODIUM 100 MG CAP PO ×2 (09:26→21:16)
[2017-08-10] MEDS: SENNA/DOCUSATE NA (8.6MG/50MG) TAB PO (09:26)
[2017-08-10] MEDS: SUCRALFATE (100 MG/ML) 10ML CUP PO ×4 (09:26→21:15)
[2017-08-10] MEDS: DEXAMETHASONE 4 MG TAB PO ×2 (09:26→21:16)
[2017-08-10] MEDS: CALCIUM CARBONATE 1.25 GM TAB PO (09:27)
[2017-08-10] MEDS: GABAPENTIN 100 MG CAP PO ×3 (09:27→21:15)
[2017-08-10] MEDS: MECLIZINE 25 MG TAB PO ×3 (09:27→21:17)
[2017-08-10] MEDS: BUSPIRONE 5 MG TAB PO ×2 (09:27→21:17)
[2017-08-10] MEDS: CARISOPRODOL 350 MG TAB PO ×2 (09:27→21:15)
[2017-08-10] MEDS: GUAIFENESIN LA 600 MG TABSR PO ×2 (09:27→21:16)
[2017-08-10] MEDS: morphine (ER) 30 MG TAB PO ×2 (09:27→21:16)
[2017-08-10] MEDS: POLYETHYLENE GLYCOL 17 GM PACKET PO (09:28)
[2017-08-10] MEDS: LISINOPRIL 5 MG TAB PO (09:28)
[2017-08-10] MEDS: LETROZOLE 2.5 MG TAB PO (09:30)
[2017-08-10] MEDS: ENOXAPARIN 100 MG/ML SYG SC ×2 (09:30→21:20)
[2017-08-10] MEDS: HYDROmorphONE 2 MG TAB PO ×3 (11:51→22:29)
[2017-08-10] MEDS: NEOMYC/POLYMYX/BACIT 30 GM OINT TOP ×2 (11:53→21:15)
[2017-08-10] MEDS: traZODone 50 MG TAB PO (21:16)
[2017-08-11] MEDS: HYDROmorphONE 1 MG/ML SYG IV
[2017-08-11] MEDS: LEVOFLOXACIN 500 MG TAB PO (06:21)
[2017-08-11] MEDS: PANTOPRAZOLE (EC) 40 MG TAB PO (06:21)
[2017-08-11] MEDS: HYDROmorphONE 2 MG TAB PO ×5 (06:25→22:31)
[2017-08-11] MEDS: ENOXAPARIN 100 MG/ML SYG SC ×2 (09:17→20:48)
[2017-08-11] MEDS: SENNA/DOCUSATE NA (8.6MG/50MG) TAB PO (09:18)
[2017-08-11] MEDS: DOCUSATE SODIUM 100 MG CAP PO ×2 (09:18→20:45)
[2017-08-11] MEDS: MECLIZINE 25 MG TAB PO ×3 (09:18→20:46)
[2017-08-11] MEDS: CALCIUM CARBONATE 1.25 GM TAB PO (09:18)
[2017-08-11] MEDS: GUAIFENESIN LA 600 MG TABSR PO ×2 (09:18→20:45)
[2017-08-11] MEDS: GABAPENTIN 100 MG CAP PO ×3 (09:19→20:46)
[2017-08-11] MEDS: NEOMYC/POLYMYX/BACIT 30 GM OINT TOP ×2 (09:19→20:46)
[2017-08-11] MEDS: SUCRALFATE (100 MG/ML) 10ML CUP PO ×4 (09:19→20:46)
[2017-08-11] MEDS: BUSPIRONE 5 MG TAB PO ×2 (09:19→20:46)
[2017-08-11] MEDS: DEXAMETHASONE 4 MG TAB PO ×2 (09:19→20:46)
[2017-08-11] MEDS: POLYETHYLENE GLYCOL 17 GM PACKET PO (09:19)
[2017-08-11] MEDS: LISINOPRIL 5 MG TAB PO (09:21)
[2017-08-11] MEDS: LETROZOLE 2.5 MG TAB PO (09:39)
[2017-08-11] MEDS: morphine (ER) 30 MG TAB PO ×2 (09:40→20:46)
[2017-08-11] MEDS: CARISOPRODOL 350 MG TAB PO ×2 (09:41→20:46)
[2017-08-11] MEDS: LORAZEPAM 1 MG TAB PO ×2 (11:29→17:41)
[2017-08-11] MEDS: traZODone 50 MG TAB PO (20:46)
[2017-08-12] MEDS: HYDROmorphONE 2 MG TAB PO ×5 (02:41→21:28)
[2017-08-12] MEDS: LEVOFLOXACIN 500 MG TAB PO (06:38)
[2017-08-12] MEDS: PANTOPRAZOLE (EC) 40 MG TAB PO (06:38)
[2017-08-12] MEDS: POLYETHYLENE GLYCOL 17 GM PACKET PO (09:33)
[2017-08-12] MEDS: SUCRALFATE (100 MG/ML) 10ML CUP PO ×4 (09:35→21:32)
[2017-08-12] MEDS: GUAIFENESIN LA 600 MG TABSR PO ×2 (09:35→21:33)
[2017-08-12] MEDS: BUSPIRONE 5 MG TAB PO ×2 (09:35→21:30)
[2017-08-12] MEDS: DEXAMETHASONE 4 MG TAB PO ×2 (09:36→21:32)
[2017-08-12] MEDS: GABAPENTIN 100 MG CAP PO ×3 (09:36→21:32)
[2017-08-12] MEDS: CALCIUM CARBONATE 1.25 GM TAB PO (09:36)
[2017-08-12] MEDS: SENNA/DOCUSATE NA (8.6MG/50MG) TAB PO (09:39)
[2017-08-12] MEDS: CARISOPRODOL 350 MG TAB PO ×2 (09:39→21:32)
[2017-08-12] MEDS: LISINOPRIL 5 MG TAB PO (09:40)
[2017-08-12] MEDS: MECLIZINE 25 MG TAB PO ×3 (09:40→21:36)
[2017-08-12] MEDS: DOCUSATE SODIUM 100 MG CAP PO ×2 (09:41→21:30)
[2017-08-12] MEDS: morphine (ER) 30 MG TAB PO ×2 (09:44→22:22)
[2017-08-12] MEDS: LETROZOLE 2.5 MG TAB PO (09:48)
[2017-08-12] MEDS: ENOXAPARIN 100 MG/ML SYG SC ×2 (09:48→21:39)
[2017-08-12] MEDS: NEOMYC/POLYMYX/BACIT 30 GM OINT TOP ×2 (09:49→21:27)
[2017-08-12] MEDS: traZODone 50 MG TAB PO (21:30)
[2017-08-12] MEDS: LORAZEPAM 1 MG TAB PO (22:21)
[2017-08-13] MEDS: HYDROmorphONE 2 MG TAB PO ×4 (06:44→22:20)
[2017-08-13] MEDS: PANTOPRAZOLE (EC) 40 MG TAB PO ×2 (06:44→09:32)
[2017-08-13] MEDS: SUCRALFATE (100 MG/ML) 10ML CUP PO ×4 (08:45→21:55)
[2017-08-13] MEDS: GUAIFENESIN LA 600 MG TABSR PO ×3 (08:46→21:57)
[2017-08-13] MEDS: GABAPENTIN 100 MG CAP PO ×3 (08:46→21:54)
[2017-08-13] MEDS: BUSPIRONE 5 MG TAB PO ×2 (08:46→21:55)
[2017-08-13] MEDS: DEXAMETHASONE 4 MG TAB PO ×2 (08:46→21:55)
[2017-08-13] MEDS: DOCUSATE SODIUM 100 MG CAP PO ×2 (08:47→21:55)
[2017-08-13] MEDS: CALCIUM CARBONATE 1.25 GM TAB PO (08:47)
[2017-08-13] MEDS: NEOMYC/POLYMYX/BACIT 30 GM OINT TOP ×2 (08:48→21:53)
[2017-08-13] MEDS: LISINOPRIL 5 MG TAB PO (08:48)
[2017-08-13] MEDS: POLYETHYLENE GLYCOL 17 GM PACKET PO (08:49)
[2017-08-13] MEDS: SENNA/DOCUSATE NA (8.6MG/50MG) TAB PO (08:49)
[2017-08-13] MEDS: morphine (ER) 30 MG TAB PO ×3 (08:54→21:56)
[2017-08-13] MEDS: CARISOPRODOL 350 MG TAB PO ×2 (08:54→22:19)
[2017-08-13] MEDS: MECLIZINE 25 MG TAB PO ×3 (08:54→21:55)
[2017-08-13] MEDS: ENOXAPARIN 100 MG/ML SYG SC ×2 (08:59→21:54)
[2017-08-13] MEDS: LETROZOLE 2.5 MG TAB PO ×2 (08:59→11:00)
[2017-08-13] MEDS ORDERED: BISACODYL 10 MG SUPP PR (09:30)
[2017-08-13] MEDS: traZODone 50 MG TAB PO (21:55)
[2017-08-13] MEDS: ACETAMINOPHEN 325 MG TAB PO (23:26)
[2017-08-13] MEDS: HYDROmorphONE 0.5 MG/0.5 ML SYG IV (23:42)
[2017-08-14] MEDS: HYDROmorphONE 2 MG TAB PO ×4 (02:27→18:53)
[2017-08-14 05:07] LABS: ADD MAN DIFF? NO
[2017-08-14 05:09] LABS: ABNORMAL IP MESSAGE 1; EOSINOPHILS % 0.4 % (0.0-7.0); HEMATOCRIT 30.5 % (37.0-47.0); HEMOGLOBIN 9.9 g/dl (12.0-16.0); LYMPHOCYTES # 0.4 10^3/ul (0.8-2.9); LYMPHOCYTES % 6.8 % (15.0-51.0); MEAN CORPUSCULAR HEMOGLOBIN 29.6 pg (29.0-33.0); MEAN CORPUSCULAR HGB CONC 32.5 g/dl (32.0-37.0); MEAN CORPUSCULAR VOLUME 91.3 fl (82.0-101.0); MEAN PLATELET VOLUME 8.3 fl (7.4-10.4); MONOCYTE # 0.4 10^3/ul (0.3-0.9); MONOCYTES % 7.5 % (0.0-11.0); NEUTROPHIL # 4.6 10^3/ul (1.6-7.5); NEUTROPHILS % 83.1 % (39.0-77.0); NUCLEATED RED BLOOD CELLS% 0.4 /100WBC (0.0-0.0); PLATELET COUNT 233 10^3/UL (140-415); RED BLOOD COUNT 3.34 10^6/ul (4.20-5.40); RED CELL DISTRIBUTION WIDTH 19.9 % (11.5-14.5)
[2017-08-14 05:09] LABS: WHITE BLOOD COUNT 5.5 10^3/ul (4.8-10.8)
[2017-08-14 05:19] LABS: POSITIVE DIFF @See below
[2017-08-14 05:36] LABS: ANION GAP 9 (8-16); BLOOD UREA NITROGEN 15 mg/dl (7-20); CALCIUM 9.2 mg/dl (8.4-10.2); CARBON DIOXIDE 35 mmol/L (21-31); CHLORIDE 95 mmol/L (97-110); CREATININE 0.42 mg/dl (0.44-1.00); GLUCOSE 99 mg/dl (70-220); MAGNESIUM 2.1 mg/dl (1.7-2.5); POTASSIUM 4.2 mmol/L (3.5-5.1); SODIUM 135 mmol/L (135-144)
[2017-08-14] MEDS: PANTOPRAZOLE (EC) 40 MG TAB PO (05:38)
[2017-08-14] MEDS: MECLIZINE 25 MG TAB PO ×3 (09:04→20:13)
[2017-08-14] MEDS: SENNA/DOCUSATE NA (8.6MG/50MG) TAB PO (09:05)
[2017-08-14] MEDS: GUAIFENESIN LA 600 MG TABSR PO ×2 (09:05→20:13)
[2017-08-14] MEDS: DEXAMETHASONE 4 MG TAB PO ×2 (09:05→20:13)
[2017-08-14] MEDS: GABAPENTIN 100 MG CAP PO ×3 (09:05→20:14)
[2017-08-14] MEDS: DOCUSATE SODIUM 100 MG CAP PO ×2 (09:05→20:13)
[2017-08-14] MEDS: CALCIUM CARBONATE 1.25 GM TAB PO (09:05)
[2017-08-14] MEDS: POLYETHYLENE GLYCOL 17 GM PACKET PO (09:06)
[2017-08-14] MEDS: SUCRALFATE (100 MG/ML) 10ML CUP PO ×4 (09:06→20:13)
[2017-08-14] MEDS: BUSPIRONE 5 MG TAB PO ×2 (09:06→20:14)
[2017-08-14] MEDS: NEOMYC/POLYMYX/BACIT 30 GM OINT TOP ×2 (09:06→20:18)
[2017-08-14] MEDS: LISINOPRIL 5 MG TAB PO (09:06)
[2017-08-14] MEDS: LETROZOLE 2.5 MG TAB PO (09:09)
[2017-08-14] MEDS: ENOXAPARIN 100 MG/ML SYG SC ×2 (09:10→20:17)
[2017-08-14] MEDS: morphine (ER) 30 MG TAB PO ×2 (09:53→20:14)
[2017-08-14] MEDS: CARISOPRODOL 350 MG TAB PO ×2 (09:53→20:14)
[2017-08-14] MEDS: HYDROmorphONE 0.5 MG/0.5 ML SYG IV ×2 (16:48→21:02)
[2017-08-14] MEDS: traZODone 50 MG TAB PO (20:14)
[2017-08-14] MEDS: ZOLPIDEM 5 MG TAB PO (23:17)
[2017-08-15] MEDS: HYDROmorphONE 0.5 MG/0.5 ML SYG IV ×2 (03:16→07:50)
[2017-08-15] MEDS: HYDROmorphONE 2 MG TAB PO ×4 (05:08→19:44)
[2017-08-15] MEDS: PANTOPRAZOLE (EC) 40 MG TAB PO (05:08)
[2017-08-15] MEDS: morphine (ER) 30 MG TAB PO ×2 (08:55→21:05)
[2017-08-15] MEDS: CALCIUM CARBONATE 1.25 GM TAB PO (08:55)
[2017-08-15] MEDS: DEXAMETHASONE 4 MG TAB PO ×2 (08:55→21:04)
[2017-08-15] MEDS: DOCUSATE SODIUM 100 MG CAP PO ×2 (08:55→21:05)
[2017-08-15] MEDS: BUSPIRONE 5 MG TAB PO ×2 (08:55→21:03)
[2017-08-15] MEDS: MECLIZINE 25 MG TAB PO ×3 (08:55→21:04)
[2017-08-15] MEDS: POLYETHYLENE GLYCOL 17 GM PACKET PO (08:56)
[2017-08-15] MEDS: SUCRALFATE (100 MG/ML) 10ML CUP PO ×4 (08:56→21:05)
[2017-08-15] MEDS: LISINOPRIL 5 MG TAB PO (08:56)
[2017-08-15] MEDS: CARISOPRODOL 350 MG TAB PO ×2 (08:57→21:04)
[2017-08-15] MEDS: NEOMYC/POLYMYX/BACIT 30 GM OINT TOP ×2 (08:57→21:07)
[2017-08-15] MEDS: GUAIFENESIN LA 600 MG TABSR PO ×2 (09:01→21:04)
[2017-08-15] MEDS: ENOXAPARIN 100 MG/ML SYG SC ×2 (09:01→21:08)
[2017-08-15] MEDS: LETROZOLE 2.5 MG TAB PO (09:01)
[2017-08-15] MEDS: SENNA/DOCUSATE NA (8.6MG/50MG) TAB PO (09:22)
[2017-08-15] MEDS: GABAPENTIN 300 MG CAP PO ×3 (09:22→21:04)
[2017-08-15] MEDS: CELECOXIB 100 MG CAP PO ×2 (10:15→21:04)
[2017-08-15] MEDS: traZODone 50 MG TAB PO (21:06)
[2017-08-16] MEDS: HYDROmorphONE 2 MG TAB PO ×6 (00:21→22:23)
[2017-08-16] MEDS: PANTOPRAZOLE (EC) 40 MG TAB PO (03:55)
[2017-08-16] MEDS: LORAZEPAM 1 MG TAB PO ×2 (03:56→20:50)
[2017-08-16] MEDS: BUSPIRONE 5 MG TAB PO ×2 (09:14→20:38)
[2017-08-16] MEDS: DOCUSATE SODIUM 100 MG CAP PO ×2 (09:14→20:37)
[2017-08-16] MEDS: GUAIFENESIN LA 600 MG TABSR PO ×2 (09:15→20:38)
[2017-08-16] MEDS: SENNA/DOCUSATE NA (8.6MG/50MG) TAB PO (09:15)
[2017-08-16] MEDS: LISINOPRIL 5 MG TAB PO (09:16)
[2017-08-16] MEDS: morphine (ER) 30 MG TAB PO ×2 (09:16→20:38)
[2017-08-16] MEDS: DEXAMETHASONE 4 MG TAB PO ×2 (09:16→20:37)
[2017-08-16] MEDS: GABAPENTIN 300 MG CAP PO ×3 (09:16→20:37)
[2017-08-16] MEDS: MECLIZINE 25 MG TAB PO ×3 (09:17→20:37)
[2017-08-16] MEDS: CELECOXIB 100 MG CAP PO ×2 (09:17→20:39)
[2017-08-16] MEDS: SUCRALFATE (100 MG/ML) 10ML CUP PO ×4 (09:17→20:38)
[2017-08-16] MEDS: POLYETHYLENE GLYCOL 17 GM PACKET PO (09:17)
[2017-08-16] MEDS: CARISOPRODOL 350 MG TAB PO ×2 (09:17→20:38)
[2017-08-16] MEDS: CALCIUM CARBONATE 1.25 GM TAB PO (09:17)
[2017-08-16] MEDS: LETROZOLE 2.5 MG TAB PO (09:20)
[2017-08-16] MEDS: ENOXAPARIN 100 MG/ML SYG SC ×2 (09:21→20:42)
[2017-08-16] MEDS: NEOMYC/POLYMYX/BACIT 30 GM OINT TOP ×2 (09:24→20:40)
[2017-08-16] MEDS: HYDROmorphONE 0.5 MG/0.5 ML SYG IV (10:39)
[2017-08-16] MEDS: traZODone 50 MG TAB PO (20:38)
[2017-08-17] MEDS: HYDROmorphONE 2 MG TAB PO ×5 (03:05→20:33)
[2017-08-17] MEDS: PANTOPRAZOLE (EC) 40 MG TAB PO (06:27)
[2017-08-17] MEDS: BUSPIRONE 5 MG TAB PO ×2 (08:20→20:36)
[2017-08-17] MEDS: DOCUSATE SODIUM 100 MG CAP PO ×2 (08:20→20:36)
[2017-08-17] MEDS: CALCIUM CARBONATE 1.25 GM TAB PO (08:20)
[2017-08-17] MEDS: GUAIFENESIN LA 600 MG TABSR PO ×2 (08:20→20:35)
[2017-08-17] MEDS: LISINOPRIL 5 MG TAB PO (08:21)
[2017-08-17] MEDS: SENNA/DOCUSATE NA (8.6MG/50MG) TAB PO (08:21)
[2017-08-17] MEDS: CARISOPRODOL 350 MG TAB PO ×2 (08:21→20:34)
[2017-08-17] MEDS: GABAPENTIN 300 MG CAP PO ×3 (08:21→20:34)
[2017-08-17] MEDS: DEXAMETHASONE 4 MG TAB PO ×2 (08:22→20:35)
[2017-08-17] MEDS: morphine (ER) 30 MG TAB PO ×2 (08:22→20:34)
[2017-08-17] MEDS: CELECOXIB 100 MG CAP PO ×2 (08:22→20:35)
[2017-08-17] MEDS: MECLIZINE 25 MG TAB PO ×3 (08:22→20:36)
[2017-08-17] MEDS: NEOMYC/POLYMYX/BACIT 30 GM OINT TOP ×2 (08:23→20:37)
[2017-08-17] MEDS: SUCRALFATE (100 MG/ML) 10ML CUP PO ×4 (08:24→20:36)
[2017-08-17] MEDS: POLYETHYLENE GLYCOL 17 GM PACKET PO (08:24)
[2017-08-17] MEDS: ENOXAPARIN 100 MG/ML SYG SC ×2 (08:26→20:40)
[2017-08-17] MEDS: LETROZOLE 2.5 MG TAB PO (08:26)
[2017-08-17] MEDS ORDERED: POLYETHYLENE GLYCOL 17 GM PACKET PO (14:00)
[2017-08-17] MEDS: (Nursing Note) XX (15:57)
[2017-08-17] MEDS ORDERED: hydrALAzine 20 MG INJ IV (17:30)
[2017-08-17] MEDS: traZODone 50 MG TAB PO (20:36)
[2017-08-17] MEDS: morphine 2 MG INJ IV (21:52)
[2017-08-18] MEDS: HYDROmorphONE 2 MG TAB PO ×6 (01:26→22:04)
[2017-08-18] MEDS: PANTOPRAZOLE (EC) 40 MG TAB PO (05:36)
[2017-08-18] MEDS: MECLIZINE 25 MG TAB PO ×4 (08:54→20:27)
[2017-08-18] MEDS: BUSPIRONE 5 MG TAB PO ×3 (08:55→20:27)
[2017-08-18] MEDS: SUCRALFATE (100 MG/ML) 10ML CUP PO ×4 (08:56→20:27)
[2017-08-18] MEDS: SENNA/DOCUSATE NA (8.6MG/50MG) TAB PO ×2 (08:57→10:05)
[2017-08-18] MEDS: CELECOXIB 100 MG CAP PO ×3 (08:57→20:27)
[2017-08-18] MEDS: DOCUSATE SODIUM 100 MG CAP PO ×3 (09:00→20:27)
[2017-08-18] MEDS: DEXAMETHASONE 4 MG TAB PO ×3 (09:02→20:28)
[2017-08-18] MEDS: POLYETHYLENE GLYCOL 17 GM PACKET PO (09:03)
[2017-08-18] MEDS: morphine (ER) 30 MG TAB PO ×2 (09:05→20:31)
[2017-08-18] MEDS: GABAPENTIN 300 MG CAP PO ×3 (09:06→20:27)
[2017-08-18] MEDS: CALCIUM CARBONATE 1.25 GM TAB PO ×2 (09:07→10:05)
[2017-08-18] MEDS: CARISOPRODOL 350 MG TAB PO ×3 (09:08→20:31)
[2017-08-18] MEDS: LISINOPRIL 5 MG TAB PO (09:09)
[2017-08-18] MEDS: ENOXAPARIN 100 MG/ML SYG SC ×2 (09:14→20:29)
[2017-08-18] MEDS: LETROZOLE 2.5 MG TAB PO (09:53)
[2017-08-18] MEDS: NEOMYC/POLYMYX/BACIT 30 GM OINT TOP ×2 (09:53→20:40)
[2017-08-18] MEDS: (Nursing Note) XX ×2 (10:00→15:06)
[2017-08-18] MEDS: GUAIFENESIN LA 600 MG TABSR PO ×2 (10:06→20:27)
[2017-08-18] MEDS: CAPECITABINE 500 MG TAB PO ×2 (13:45→20:29)
[2017-08-18] MEDS ORDERED: [UNRECOGNIZED DRUG - REMARK] XX (16:00)
[2017-08-18] MEDS: traZODone 50 MG TAB PO (20:27)
[2017-08-18] MEDS: LORAZEPAM 1 MG TAB PO (22:04)
[2017-08-19] MEDS: HYDROmorphONE 2 MG TAB PO ×5 (04:35→20:35)
[2017-08-19] MEDS: PANTOPRAZOLE (EC) 40 MG TAB PO (05:09)
[2017-08-19 05:13] LABS: ADD MAN DIFF? NO
[2017-08-19 05:16] LABS: WHITE BLOOD COUNT 4.4 10^3/ul (4.8-10.8)
[2017-08-19 05:16] LABS: ABNORMAL IP MESSAGE 1; BASOPHILS % 0.2 % (0.0-2.0); EOSINOPHILS % 0.5 % (0.0-7.0); HEMATOCRIT 29.4 % (37.0-47.0); HEMOGLOBIN 9.4 g/dl (12.0-16.0); LYMPHOCYTES # 0.4 10^3/ul (0.8-2.9); LYMPHOCYTES % 9.3 % (15.0-51.0); MEAN CORPUSCULAR HEMOGLOBIN 29.4 pg (29.0-33.0); MEAN CORPUSCULAR VOLUME 91.9 fl (82.0-101.0); MEAN PLATELET VOLUME 8.6 fl (7.4-10.4); MONOCYTE # 0.4 10^3/ul (0.3-0.9); MONOCYTES % 8.4 % (0.0-11.0); NEUTROPHIL # 3.6 10^3/ul (1.6-7.5); NEUTROPHILS % 80.7 % (39.0-77.0); PLATELET COUNT 249 10^3/UL (140-415); RED CELL DISTRIBUTION WIDTH 19.2 % (11.5-14.5)
[2017-08-19 05:17] LABS: POSITIVE DIFF @See below
[2017-08-19 05:56] LABS: ANION GAP 10 (8-16); BLOOD UREA NITROGEN 20 mg/dl (7-20); CALCIUM 9.2 mg/dl (8.4-10.2); CARBON DIOXIDE 32 mmol/L (21-31); CHLORIDE 96 mmol/L (97-110); CREATININE 0.49 mg/dl (0.44-1.00); GLUCOSE 99 mg/dl (70-220); MAGNESIUM 2.1 mg/dl (1.7-2.5); SODIUM 134 mmol/L (135-144)
[2017-08-19] MEDS: POLYETHYLENE GLYCOL 17 GM PACKET PO (08:41)
[2017-08-19] MEDS: NEOMYC/POLYMYX/BACIT 30 GM OINT TOP ×2 (08:41→20:36)
[2017-08-19] MEDS: CAPECITABINE 500 MG TAB PO ×2 (08:42→20:34)
[2017-08-19] MEDS: morphine (ER) 30 MG TAB PO ×2 (08:42→20:24)
[2017-08-19] MEDS: BUSPIRONE 5 MG TAB PO ×2 (08:43→20:35)
[2017-08-19] MEDS: SENNA/DOCUSATE NA (8.6MG/50MG) TAB PO (08:43)
[2017-08-19] MEDS: GUAIFENESIN LA 600 MG TABSR PO ×2 (08:43→20:36)
[2017-08-19] MEDS: DEXAMETHASONE 4 MG TAB PO ×2 (08:43→20:36)
[2017-08-19] MEDS: MECLIZINE 25 MG TAB PO ×3 (08:44→20:36)
[2017-08-19] MEDS: DOCUSATE SODIUM 100 MG CAP PO ×2 (08:44→20:37)
[2017-08-19] MEDS: CELECOXIB 100 MG CAP PO ×2 (08:44→20:36)
[2017-08-19] MEDS: CALCIUM CARBONATE 1.25 GM TAB PO (08:44)
[2017-08-19] MEDS: GABAPENTIN 300 MG CAP PO ×3 (08:44→20:36)
[2017-08-19] MEDS: LETROZOLE 2.5 MG TAB PO (08:44)
[2017-08-19] MEDS: CARISOPRODOL 350 MG TAB PO ×2 (08:44→20:23)
[2017-08-19] MEDS: LISINOPRIL 5 MG TAB PO (08:45)
[2017-08-19] MEDS: SUCRALFATE (100 MG/ML) 10ML CUP PO ×4 (08:45→20:36)
[2017-08-19] MEDS: ENOXAPARIN 100 MG/ML SYG SC ×2 (08:46→20:35)
[2017-08-19] MEDS: (Nursing Note) XX ×2 (10:00→16:00)
[2017-08-19] MEDS: LORAZEPAM 1 MG TAB PO (19:52)
[2017-08-19] MEDS: morphine 2 MG INJ IV ×2 (20:23→21:13)
[2017-08-19] MEDS: traZODone 50 MG TAB PO (20:35)
[2017-08-19] MEDS: HYDROmorphONE 1 MG/ML SYG IV (21:33)
[2017-08-20 04:52] LABS: ADD MAN DIFF? NO
[2017-08-20 05:00] LABS: ABNORMAL IP MESSAGE 1; EOSINOPHILS % 0.2 % (0.0-7.0); HEMOGLOBIN 9.3 g/dl (12.0-16.0); LYMPHOCYTES # 0.4 10^3/ul (0.8-2.9); LYMPHOCYTES % 8.4 % (15.0-51.0); MEAN CORPUSCULAR HEMOGLOBIN 29.7 pg (29.0-33.0); MEAN CORPUSCULAR HGB CONC 32.1 g/dl (32.0-37.0); MEAN CORPUSCULAR VOLUME 92.7 fl (82.0-101.0); MEAN PLATELET VOLUME 8.6 fl (7.4-10.4); MONOCYTE # 0.3 10^3/ul (0.3-0.9); MONOCYTES % 6.5 % (0.0-11.0); NEUTROPHIL # 3.6 10^3/ul (1.6-7.5); PLATELET COUNT 229 10^3/UL (140-415); RED BLOOD COUNT 3.13 10^6/ul (4.20-5.40); RED CELL DISTRIBUTION WIDTH 18.9 % (11.5-14.5)
[2017-08-20 05:00] LABS: WHITE BLOOD COUNT 4.3 10^3/ul (4.8-10.8)
[2017-08-20 05:18] LABS: ANION GAP 9 (8-16); BLOOD UREA NITROGEN 15 mg/dl (7-20); CALCIUM 9.1 mg/dl (8.4-10.2); CARBON DIOXIDE 34 mmol/L (21-31); CHLORIDE 98 mmol/L (97-110); CREATININE 0.44 mg/dl (0.44-1.00); GLUCOSE 106 mg/dl (70-220); POSITIVE DIFF @See below; POTASSIUM 4.4 mmol/L (3.5-5.1); SODIUM 137 mmol/L (135-144)
[2017-08-20] MEDS: HYDROmorphONE 2 MG TAB PO ×4 (06:21→23:54)
[2017-08-20] MEDS: PANTOPRAZOLE (EC) 40 MG TAB PO (06:21)
[2017-08-20] MEDS: morphine 2 MG INJ IV ×2 (08:09→19:01)
[2017-08-20] MEDS: CAPECITABINE 500 MG TAB PO ×2 (08:11→21:15)
[2017-08-20] MEDS: LETROZOLE 2.5 MG TAB PO (08:11)
[2017-08-20] MEDS: ENOXAPARIN 100 MG/ML SYG SC ×2 (08:12→21:20)
[2017-08-20] MEDS: SUCRALFATE (100 MG/ML) 10ML CUP PO ×4 (08:13→20:59)
[2017-08-20] MEDS: CELECOXIB 100 MG CAP PO ×2 (08:13→21:01)
[2017-08-20] MEDS: POLYETHYLENE GLYCOL 17 GM PACKET PO (08:13)
[2017-08-20] MEDS: SENNA/DOCUSATE NA (8.6MG/50MG) TAB PO (08:13)
[2017-08-20] MEDS: GABAPENTIN 300 MG CAP PO ×3 (08:13→21:21)
[2017-08-20] MEDS: GUAIFENESIN LA 600 MG TABSR PO ×2 (08:13→21:06)
[2017-08-20] MEDS: MECLIZINE 25 MG TAB PO ×3 (08:13→21:05)
[2017-08-20] MEDS: DOCUSATE SODIUM 100 MG CAP PO ×2 (08:13→21:05)
[2017-08-20] MEDS: CALCIUM CARBONATE 1.25 GM TAB PO (08:14)
[2017-08-20] MEDS: DEXAMETHASONE 4 MG TAB PO ×2 (08:14→21:01)
[2017-08-20] MEDS: BUSPIRONE 5 MG TAB PO ×2 (08:16→21:01)
[2017-08-20] MEDS: morphine (ER) 15 MG TAB PO ×2 (09:23→21:04)
[2017-08-20] MEDS: LISINOPRIL 5 MG TAB PO (09:24)
[2017-08-20] MEDS: CARISOPRODOL 350 MG TAB PO ×2 (09:27→21:06)
[2017-08-20] MEDS: (Nursing Note) XX ×2 (10:00→16:00)
[2017-08-20] MEDS: NEOMYC/POLYMYX/BACIT 30 GM OINT TOP ×2 (10:54→20:59)
[2017-08-20] MEDS: traZODone 50 MG TAB PO (21:01)
[2017-08-21] MEDS: LORAZEPAM 1 MG TAB PO ×2 (03:14→22:06)
[2017-08-21] MEDS: PANTOPRAZOLE (EC) 40 MG TAB PO (05:07)
[2017-08-21] MEDS: HYDROmorphONE 2 MG TAB PO ×3 (05:08→18:19)
[2017-08-21 05:09] LABS: ADD MAN DIFF? NO
[2017-08-21 05:15] LABS: WHITE BLOOD COUNT 4.8 10^3/ul (4.8-10.8)
[2017-08-21 05:15] LABS: ABNORMAL IP MESSAGE 1; BASOPHILS % 0.2 % (0.0-2.0); EOSINOPHILS % 0.2 % (0.0-7.0); HEMATOCRIT 29.2 % (37.0-47.0); HEMOGLOBIN 9.4 g/dl (12.0-16.0); LYMPHOCYTES # 0.4 10^3/ul (0.8-2.9); LYMPHOCYTES % 7.8 % (15.0-51.0); MEAN CORPUSCULAR HEMOGLOBIN 29.7 pg (29.0-33.0); MEAN CORPUSCULAR HGB CONC 32.2 g/dl (32.0-37.0); MEAN CORPUSCULAR VOLUME 92.4 fl (82.0-101.0); MEAN PLATELET VOLUME 8.6 fl (7.4-10.4); MONOCYTE # 0.3 10^3/ul (0.3-0.9); MONOCYTES % 6.1 % (0.0-11.0); NEUTROPHILS % 84.6 % (39.0-77.0); PLATELET COUNT 262 10^3/UL (140-415); RED BLOOD COUNT 3.16 10^6/ul (4.20-5.40); RED CELL DISTRIBUTION WIDTH 18.5 % (11.5-14.5)
[2017-08-21 05:16] LABS: POSITIVE DIFF @See below
[2017-08-21 05:53] LABS: ANION GAP 10 (8-16); BLOOD UREA NITROGEN 18 mg/dl (7-20); CARBON DIOXIDE 31 mmol/L (21-31); CHLORIDE 99 mmol/L (97-110); CREATININE 0.37 mg/dl (0.44-1.00); GLUCOSE 105 mg/dl (70-220); POTASSIUM 3.9 mmol/L (3.5-5.1); SODIUM 136 mmol/L (135-144)
[2017-08-21] MEDS: MECLIZINE 25 MG TAB PO ×3 (09:11→21:00)
[2017-08-21] MEDS: CARISOPRODOL 350 MG TAB PO ×2 (09:11→21:20)
[2017-08-21] MEDS: POLYETHYLENE GLYCOL 17 GM PACKET PO (09:11)
[2017-08-21] MEDS: morphine (ER) 15 MG TAB PO ×2 (09:11→21:20)
[2017-08-21] MEDS: CALCIUM CARBONATE 1.25 GM TAB PO (09:12)
[2017-08-21] MEDS: SENNA/DOCUSATE NA (8.6MG/50MG) TAB PO (09:12)
[2017-08-21] MEDS: GABAPENTIN 300 MG CAP PO ×3 (09:12→21:21)
[2017-08-21] MEDS: DOCUSATE SODIUM 100 MG CAP PO ×2 (09:13→21:26)
[2017-08-21] MEDS: DEXAMETHASONE 4 MG TAB PO ×2 (09:13→21:20)
[2017-08-21] MEDS: CELECOXIB 100 MG CAP PO ×2 (09:13→21:22)
[2017-08-21] MEDS: LISINOPRIL 5 MG TAB PO (09:15)
[2017-08-21] MEDS: NEOMYC/POLYMYX/BACIT 30 GM OINT TOP ×2 (09:15→21:29)
[2017-08-21] MEDS: SUCRALFATE (100 MG/ML) 10ML CUP PO ×4 (09:16→21:26)
[2017-08-21] MEDS: BUSPIRONE 5 MG TAB PO ×2 (09:20→21:24)
[2017-08-21] MEDS: GUAIFENESIN LA 600 MG TABSR PO ×2 (09:37→21:27)
[2017-08-21] MEDS: ENOXAPARIN 100 MG/ML SYG SC ×2 (09:38→21:36)
[2017-08-21] MEDS: LETROZOLE 2.5 MG TAB PO (09:39)
[2017-08-21] MEDS: CAPECITABINE 500 MG TAB PO ×2 (09:39→21:35)
[2017-08-21] MEDS: (Nursing Note) XX ×2 (10:00→16:17)
[2017-08-21] MEDS: traZODone 50 MG TAB PO (21:24)
[2017-08-22 05:10] LABS: ADD MAN DIFF? NO
[2017-08-22 05:26] LABS: WHITE BLOOD COUNT 5.3 10^3/ul (4.8-10.8)
[2017-08-22 05:26] LABS: ABNORMAL IP MESSAGE 1; BASOPHILS % 0.2 % (0.0-2.0); EOSINOPHILS % 0.2 % (0.0-7.0); HEMATOCRIT 28.4 % (37.0-47.0); HEMOGLOBIN 9.1 g/dl (12.0-16.0); LYMPHOCYTES # 0.5 10^3/ul (0.8-2.9); MEAN CORPUSCULAR HEMOGLOBIN 29.8 pg (29.0-33.0); MEAN CORPUSCULAR VOLUME 93.1 fl (82.0-101.0); MEAN PLATELET VOLUME 8.7 fl (7.4-10.4); MONOCYTE # 0.3 10^3/ul (0.3-0.9); NEUTROPHIL # 4.3 10^3/ul (1.6-7.5); NEUTROPHILS % 81.5 % (39.0-77.0); PLATELET COUNT 262 10^3/UL (140-415); RED BLOOD COUNT 3.05 10^6/ul (4.20-5.40); RED CELL DISTRIBUTION WIDTH 18.5 % (11.5-14.5)
[2017-08-22 05:32] LABS: ANION GAP 12 (8-16); BLOOD UREA NITROGEN 19 mg/dl (7-20); CALCIUM 9.2 mg/dl (8.4-10.2); CARBON DIOXIDE 34 mmol/L (21-31); CHLORIDE 95 mmol/L (97-110); CREATININE 0.44 mg/dl (0.44-1.00); GLUCOSE 101 mg/dl (70-220); POTASSIUM 4.3 mmol/L (3.5-5.1); SODIUM 137 mmol/L (135-144)
[2017-08-22] MEDS: PANTOPRAZOLE (EC) 40 MG TAB PO (05:53)
[2017-08-22] MEDS: HYDROmorphONE 2 MG TAB PO ×2 (05:56→18:06)
[2017-08-22 06:45] LABS: POSITIVE DIFF @See below
[2017-08-22] MEDS: LORAZEPAM 1 MG TAB PO (07:02)
[2017-08-22] MEDS: LISINOPRIL 5 MG TAB PO (09:00)
[2017-08-22] MEDS: MECLIZINE 25 MG TAB PO ×3 (09:00→21:00)
[2017-08-22] MEDS: NEOMYC/POLYMYX/BACIT 30 GM OINT TOP ×2 (09:35→21:09)
[2017-08-22] MEDS: morphine (ER) 15 MG TAB PO ×2 (09:36→21:04)
[2017-08-22] MEDS: SENNA/DOCUSATE NA (8.6MG/50MG) TAB PO (09:37)
[2017-08-22] MEDS: GUAIFENESIN LA 600 MG TABSR PO ×2 (09:39→21:00)
[2017-08-22] MEDS: CELECOXIB 100 MG CAP PO ×2 (09:39→20:59)
[2017-08-22] MEDS: CALCIUM CARBONATE 1.25 GM TAB PO (09:39)
[2017-08-22] MEDS: BUSPIRONE 5 MG TAB PO ×2 (09:40→20:59)
[2017-08-22] MEDS: DEXAMETHASONE 4 MG TAB PO ×2 (09:41→20:58)
[2017-08-22] MEDS: DOCUSATE SODIUM 100 MG CAP PO ×2 (09:41→20:58)
[2017-08-22] MEDS: SUCRALFATE (100 MG/ML) 10ML CUP PO ×4 (09:42→21:01)
[2017-08-22] MEDS: POLYETHYLENE GLYCOL 17 GM PACKET PO (09:42)
[2017-08-22] MEDS: CAPECITABINE 500 MG TAB PO ×2 (09:45→21:06)
[2017-08-22] MEDS: LETROZOLE 2.5 MG TAB PO (09:45)
[2017-08-22] MEDS: ENOXAPARIN 100 MG/ML SYG SC ×2 (09:47→21:08)
[2017-08-22] MEDS: CARISOPRODOL 350 MG TAB PO ×2 (09:51→21:03)
[2017-08-22] MEDS: GABAPENTIN 300 MG CAP PO ×3 (09:52→20:58)
[2017-08-22] MEDS: (Nursing Note) XX ×2 (10:00→15:56)
[2017-08-22] MEDS: traZODone 50 MG TAB PO (20:58)
[2017-08-23] MEDS: HYDROmorphONE 2 MG TAB PO ×4 (02:25→21:07)
[2017-08-23 05:24] LABS: ADD MAN DIFF? NO
[2017-08-23] MEDS: PANTOPRAZOLE (EC) 40 MG TAB PO (05:27)
[2017-08-23 05:34] LABS: ABNORMAL IP MESSAGE 1; BASOPHILS % 0.2 % (0.0-2.0); HEMATOCRIT 24.5 % (37.0-47.0); LYMPHOCYTES # 0.4 10^3/ul (0.8-2.9); LYMPHOCYTES % 7.7 % (15.0-51.0); MEAN CORPUSCULAR HEMOGLOBIN 30.1 pg (29.0-33.0); MEAN CORPUSCULAR HGB CONC 32.7 g/dl (32.0-37.0); MEAN CORPUSCULAR VOLUME 92.1 fl (82.0-101.0); MEAN PLATELET VOLUME 8.9 fl (7.4-10.4); MONOCYTE # 0.3 10^3/ul (0.3-0.9); MONOCYTES % 6.5 % (0.0-11.0); NEUTROPHIL # 4.2 10^3/ul (1.6-7.5); NEUTROPHILS % 83.8 % (39.0-77.0); NUCLEATED RED BLOOD CELLS% 0.4 /100WBC (0.0-0.0); PLATELET COUNT 252 10^3/UL (140-415); RED BLOOD COUNT 2.66 10^6/ul (4.20-5.40); RED CELL DISTRIBUTION WIDTH 18.2 % (11.5-14.5)
[2017-08-23 05:39] LABS: POSITIVE DIFF @See below
[2017-08-23 06:01] LABS: ANION GAP 12 (8-16); BLOOD UREA NITROGEN 20 mg/dl (7-20); CALCIUM 8.8 mg/dl (8.4-10.2); CARBON DIOXIDE 30 mmol/L (21-31); CHLORIDE 99 mmol/L (97-110); CREATININE 0.39 mg/dl (0.44-1.00); GLUCOSE 115 mg/dl (70-220); SODIUM 137 mmol/L (135-144)
[2017-08-23] MEDS: NEOMYC/POLYMYX/BACIT 30 GM OINT TOP ×2 (08:33→22:23)
[2017-08-23] MEDS: SENNA/DOCUSATE NA (8.6MG/50MG) TAB PO (08:33)
[2017-08-23] MEDS: CALCIUM CARBONATE 1.25 GM TAB PO (08:33)
[2017-08-23] MEDS: GABAPENTIN 300 MG CAP PO ×3 (08:34→21:07)
[2017-08-23] MEDS: morphine (ER) 15 MG TAB PO ×2 (08:34→22:22)
[2017-08-23] MEDS: DEXAMETHASONE 4 MG TAB PO ×2 (08:34→21:08)
[2017-08-23] MEDS: BUSPIRONE 5 MG TAB PO (08:35)
[2017-08-23] MEDS: MECLIZINE 25 MG TAB PO ×3 (08:35→21:08)
[2017-08-23] MEDS: CARISOPRODOL 350 MG TAB PO ×2 (08:35→22:23)
[2017-08-23] MEDS: DOCUSATE SODIUM 100 MG CAP PO ×2 (08:35→21:07)
[2017-08-23] MEDS: CELECOXIB 100 MG CAP PO ×2 (08:36→21:07)
[2017-08-23] MEDS: SUCRALFATE (100 MG/ML) 10ML CUP PO ×4 (08:36→21:03)
[2017-08-23] MEDS: LISINOPRIL 5 MG TAB PO (08:37)
[2017-08-23] MEDS: GUAIFENESIN LA 600 MG TABSR PO ×2 (08:37→21:08)
[2017-08-23] MEDS: POLYETHYLENE GLYCOL 17 GM PACKET PO (09:47)
[2017-08-23] MEDS: LORAZEPAM 1 MG TAB PO (09:47)
[2017-08-23] MEDS: LETROZOLE 2.5 MG TAB PO (09:59)
[2017-08-23] MEDS: CAPECITABINE 500 MG TAB PO ×2 (09:59→21:05)
[2017-08-23] MEDS: ENOXAPARIN 100 MG/ML SYG SC ×2 (10:00→21:05)
[2017-08-23] MEDS: (Nursing Note) XX ×2 (10:00→16:00)
[2017-08-23] MEDS: morphine 2 MG INJ IV (13:35)
[2017-08-23] MEDS: traZODone 50 MG TAB PO (21:07)
[2017-08-23] MEDS: BUSPIRONE 10 MG TAB PO (22:22)
[2017-08-24] MEDS: PANTOPRAZOLE (EC) 40 MG TAB PO (05:04)
[2017-08-24] MEDS: HYDROmorphONE 2 MG TAB PO ×5 (05:05→23:04)
[2017-08-24 05:37] LABS: ADD MAN DIFF? NO
[2017-08-24 05:41] LABS: ABNORMAL IP MESSAGE 1; EOSINOPHILS % 0.2 % (0.0-7.0); HEMATOCRIT 20.4 % (37.0-47.0); LYMPHOCYTES # 0.5 10^3/ul (0.8-2.9); LYMPHOCYTES % 10.2 % (15.0-51.0); MEAN CORPUSCULAR HEMOGLOBIN 30.3 pg (29.0-33.0); MEAN CORPUSCULAR HGB CONC 32.4 g/dl (32.0-37.0); MEAN CORPUSCULAR VOLUME 93.6 fl (82.0-101.0); MEAN PLATELET VOLUME 8.8 fl (7.4-10.4); MONOCYTE # 0.3 10^3/ul (0.3-0.9); MONOCYTES % 7.3 % (0.0-11.0); NEUTROPHIL # 3.6 10^3/ul (1.6-7.5); NUCLEATED RED BLOOD CELLS% 0.4 /100WBC (0.0-0.0); PLATELET COUNT 242 10^3/UL (140-415); RED BLOOD COUNT 2.18 10^6/ul (4.20-5.40); RED CELL DISTRIBUTION WIDTH 18.6 % (11.5-14.5)
[2017-08-24 05:41] LABS: WHITE BLOOD COUNT 4.5 10^3/ul (4.8-10.8)
[2017-08-24 05:47] LABS: HEMOGLOBIN 6.6 g/dl (12.0-16.0); POSITIVE DIFF @See below
[2017-08-24 06:15] LABS: ANION GAP 10 (8-16); BLOOD UREA NITROGEN 25 mg/dl (7-20); CALCIUM 8.8 mg/dl (8.4-10.2); CARBON DIOXIDE 33 mmol/L (21-31); CHLORIDE 100 mmol/L (97-110); CREATININE 0.54 mg/dl (0.44-1.00); GLUCOSE 100 mg/dl (70-220); POTASSIUM 4.8 mmol/L (3.5-5.1); SODIUM 138 mmol/L (135-144)
[2017-08-24] MEDS: DOCUSATE SODIUM 100 MG CAP PO ×2 (08:48→20:34)
[2017-08-24] MEDS: GABAPENTIN 300 MG CAP PO ×3 (08:48→20:36)
[2017-08-24] MEDS: SUCRALFATE (100 MG/ML) 10ML CUP PO ×4 (08:48→20:34)
[2017-08-24] MEDS: morphine (ER) 15 MG TAB PO ×3 (08:49→21:52)
[2017-08-24] MEDS: SENNA/DOCUSATE NA (8.6MG/50MG) TAB PO (08:49)
[2017-08-24] MEDS: CALCIUM CARBONATE 1.25 GM TAB PO (08:49)
[2017-08-24] MEDS: CELECOXIB 100 MG CAP PO ×2 (08:49→20:34)
[2017-08-24] MEDS: CARISOPRODOL 350 MG TAB PO ×2 (08:50→20:34)
[2017-08-24] MEDS: MECLIZINE 25 MG TAB PO ×3 (08:50→20:35)
[2017-08-24] MEDS: LETROZOLE 2.5 MG TAB PO (08:51)
[2017-08-24] MEDS: LORAZEPAM 1 MG TAB PO (08:51)
[2017-08-24] MEDS: CAPECITABINE 500 MG TAB PO ×2 (08:52→21:52)
[2017-08-24] MEDS: DEXAMETHASONE 4 MG TAB PO ×2 (08:54→20:35)
[2017-08-24] MEDS: NEOMYC/POLYMYX/BACIT 30 GM OINT TOP ×2 (08:54→20:40)
[2017-08-24] MEDS: POLYETHYLENE GLYCOL 17 GM PACKET PO (08:54)
[2017-08-24] MEDS: ENOXAPARIN 100 MG/ML SYG SC ×2 (08:58→20:40)
[2017-08-24] MEDS: BUSPIRONE 10 MG TAB PO ×2 (09:02→20:35)
[2017-08-24] MEDS: GUAIFENESIN LA 600 MG TABSR PO ×2 (09:04→20:35)
[2017-08-24] MEDS: (Nursing Note) XX ×2 (10:00→16:00)
[2017-08-24 12:18] LABS: IMMEDIATE SPIN CROSSMATCH 1 2
[2017-08-24] MEDS: LISINOPRIL 5 MG TAB PO (13:07)
[2017-08-24] MEDS: traZODone 50 MG TAB PO (20:35)
[2017-08-25] MEDS: LORAZEPAM 1 MG TAB PO (02:39)
[2017-08-25 05:14] LABS: ADD MAN DIFF? NO
[2017-08-25 05:27] LABS: WHITE BLOOD COUNT 5.3 10^3/ul (4.8-10.8)
[2017-08-25 05:27] LABS: ABNORMAL IP MESSAGE 1; BASOPHILS % 0.2 % (0.0-2.0); HEMATOCRIT 29.7 % (37.0-47.0); HEMOGLOBIN 9.8 g/dl (12.0-16.0); LYMPHOCYTES # 0.3 10^3/ul (0.8-2.9); MEAN CORPUSCULAR HEMOGLOBIN 29.4 pg (29.0-33.0); MEAN CORPUSCULAR VOLUME 89.2 fl (82.0-101.0); MEAN PLATELET VOLUME 8.8 fl (7.4-10.4); MONOCYTE # 0.3 10^3/ul (0.3-0.9); NEUTROPHIL # 4.5 10^3/ul (1.6-7.5); NUCLEATED RED BLOOD CELLS% 0.4 /100WBC (0.0-0.0); PLATELET COUNT 251 10^3/UL (140-415); RED BLOOD COUNT 3.33 10^6/ul (4.20-5.40); RED CELL DISTRIBUTION WIDTH 16.5 % (11.5-14.5)
[2017-08-25] MEDS: PANTOPRAZOLE (EC) 40 MG TAB PO (05:33)
[2017-08-25] MEDS: HYDROmorphONE 2 MG TAB PO ×4 (05:34→23:14)
[2017-08-25 05:37] LABS: POSITIVE DIFF @See below
[2017-08-25 05:39] LABS: ANION GAP 13 (8-16); BLOOD UREA NITROGEN 19 mg/dl (7-20); CALCIUM 8.8 mg/dl (8.4-10.2); CARBON DIOXIDE 31 mmol/L (21-31); CHLORIDE 98 mmol/L (97-110); CREATININE 0.34 mg/dl (0.44-1.00); GLUCOSE 113 mg/dl (70-220); SODIUM 138 mmol/L (135-144)
[2017-08-25] MEDS: NEOMYC/POLYMYX/BACIT 30 GM OINT TOP ×2 (08:54→21:31)
[2017-08-25] MEDS: CELECOXIB 100 MG CAP PO ×2 (08:55→21:00)
[2017-08-25] MEDS: SENNA/DOCUSATE NA (8.6MG/50MG) TAB PO (08:55)
[2017-08-25] MEDS: GABAPENTIN 300 MG CAP PO ×3 (08:56→21:02)
[2017-08-25] MEDS: DEXAMETHASONE 4 MG TAB PO ×2 (08:56→21:03)
[2017-08-25] MEDS: MECLIZINE 25 MG TAB PO ×3 (08:56→21:03)
[2017-08-25] MEDS: BUSPIRONE 10 MG TAB PO ×2 (08:56→21:03)
[2017-08-25] MEDS: CALCIUM CARBONATE 1.25 GM TAB PO (08:56)
[2017-08-25] MEDS: DOCUSATE SODIUM 100 MG CAP PO ×2 (08:56→21:03)
[2017-08-25] MEDS: CARISOPRODOL 350 MG TAB PO ×2 (08:57→21:10)
[2017-08-25] MEDS: LISINOPRIL 5 MG TAB PO (08:57)
[2017-08-25] MEDS: POLYETHYLENE GLYCOL 17 GM PACKET PO (08:57)
[2017-08-25] MEDS: SUCRALFATE (100 MG/ML) 10ML CUP PO ×4 (08:59→21:00)
[2017-08-25] MEDS: CAPECITABINE 500 MG TAB PO ×3 (09:13→23:12)
[2017-08-25] MEDS: ENOXAPARIN 100 MG/ML SYG SC ×2 (09:14→21:06)
[2017-08-25] MEDS: LETROZOLE 2.5 MG TAB PO (09:15)
[2017-08-25] MEDS: GUAIFENESIN LA 600 MG TABSR PO ×2 (09:15→21:04)
[2017-08-25] MEDS: (Nursing Note) XX ×2 (10:00→15:03)
[2017-08-25] MEDS: traZODone 50 MG TAB PO (21:03)
[2017-08-25] MEDS: morphine (ER) 15 MG TAB PO (21:11)
[2017-08-25] MEDS: morphine 2 MG INJ IV (21:29)
[2017-08-26] MEDS: HYDROmorphONE 2 MG TAB PO ×3 (04:54→18:07)
[2017-08-26 05:25] LABS: ADD MAN DIFF? NO
[2017-08-26 05:36] LABS: ABNORMAL IP MESSAGE 1; BASOPHILS % 0.2 % (0.0-2.0); EOSINOPHILS % 0.2 % (0.0-7.0); HEMOGLOBIN 10.9 g/dl (12.0-16.0); LYMPHOCYTES # 0.4 10^3/ul (0.8-2.9); LYMPHOCYTES % 7.4 % (15.0-51.0); MEAN CORPUSCULAR HEMOGLOBIN 30.3 pg (29.0-33.0); MEAN CORPUSCULAR VOLUME 91.7 fl (82.0-101.0); MEAN PLATELET VOLUME 8.6 fl (7.4-10.4); MONOCYTE # 0.3 10^3/ul (0.3-0.9); MONOCYTES % 5.4 % (0.0-11.0); NEUTROPHILS % 82.9 % (39.0-77.0); NUCLEATED RED BLOOD CELLS% 0.3 /100WBC (0.0-0.0); PLATELET COUNT 269 10^3/UL (140-415); RED CELL DISTRIBUTION WIDTH 16.7 % (11.5-14.5)
[2017-08-26 05:43] LABS: POSITIVE DIFF @See below
[2017-08-26] MEDS: PANTOPRAZOLE (EC) 40 MG TAB PO (06:04)
[2017-08-26 06:40] LABS: ANION GAP 13 (8-16); BLOOD UREA NITROGEN 17 mg/dl (7-20); CALCIUM 8.9 mg/dl (8.4-10.2); CARBON DIOXIDE 30 mmol/L (21-31); CHLORIDE 101 mmol/L (97-110); CREATININE 0.45 mg/dl (0.44-1.00); GLUCOSE 97 mg/dl (70-220); POTASSIUM 3.7 mmol/L (3.5-5.1); SODIUM 140 mmol/L (135-144)
[2017-08-26] MEDS: NEOMYC/POLYMYX/BACIT 30 GM OINT TOP ×2 (09:47→20:42)
[2017-08-26] MEDS: morphine (ER) 15 MG TAB PO ×2 (09:48→20:18)
[2017-08-26] MEDS: POLYETHYLENE GLYCOL 17 GM PACKET PO (09:48)
[2017-08-26] MEDS: DEXAMETHASONE 4 MG TAB PO ×2 (09:48→20:21)
[2017-08-26] MEDS: SUCRALFATE (100 MG/ML) 10ML CUP PO ×4 (09:49→20:42)
[2017-08-26] MEDS: GUAIFENESIN LA 600 MG TABSR PO ×2 (09:49→20:28)
[2017-08-26] MEDS: MECLIZINE 25 MG TAB PO ×3 (09:50→20:20)
[2017-08-26] MEDS: SENNA/DOCUSATE NA (8.6MG/50MG) TAB PO (09:50)
[2017-08-26] MEDS: CELECOXIB 100 MG CAP PO ×2 (09:50→20:27)
[2017-08-26] MEDS: DOCUSATE SODIUM 100 MG CAP PO ×2 (09:50→20:20)
[2017-08-26] MEDS: CALCIUM CARBONATE 1.25 GM TAB PO (09:51)
[2017-08-26] MEDS: GABAPENTIN 300 MG CAP PO ×3 (09:51→20:19)
[2017-08-26] MEDS: CARISOPRODOL 350 MG TAB PO ×3 (09:53→21:00)
[2017-08-26] MEDS: LISINOPRIL 5 MG TAB PO (09:54)
[2017-08-26] MEDS: (Nursing Note) XX ×2 (10:00→16:00)
[2017-08-26] MEDS: ENOXAPARIN 100 MG/ML SYG SC ×2 (10:03→20:26)
[2017-08-26] MEDS: LETROZOLE 2.5 MG TAB PO (10:04)
[2017-08-26] MEDS: CAPECITABINE 500 MG TAB PO ×2 (10:05→20:24)
[2017-08-26] MEDS: BUSPIRONE 10 MG TAB PO ×2 (10:07→20:27)
[2017-08-26] MEDS: LORAZEPAM 1 MG TAB PO (20:42)
[2017-08-26] MEDS: traZODone 50 MG TAB PO (20:42)
[2017-08-27] MEDS: PANTOPRAZOLE (EC) 40 MG TAB PO (06:10)
[2017-08-27] MEDS: HYDROmorphONE 2 MG TAB PO ×2 (06:10→15:50)
[2017-08-27] MEDS: SUCRALFATE (100 MG/ML) 10ML CUP PO ×4 (08:17→21:15)
[2017-08-27] MEDS: NEOMYC/POLYMYX/BACIT 30 GM OINT TOP ×2 (08:17→21:20)
[2017-08-27] MEDS: POLYETHYLENE GLYCOL 17 GM PACKET PO (08:17)
[2017-08-27] MEDS: SENNA/DOCUSATE NA (8.6MG/50MG) TAB PO (08:18)
[2017-08-27] MEDS: DEXAMETHASONE 4 MG TAB PO ×2 (08:18→21:18)
[2017-08-27] MEDS: GABAPENTIN 300 MG CAP PO ×3 (08:18→21:12)
[2017-08-27] MEDS: CALCIUM CARBONATE 1.25 GM TAB PO (08:18)
[2017-08-27] MEDS: DOCUSATE SODIUM 100 MG CAP PO ×2 (08:18→21:17)
[2017-08-27] MEDS: GUAIFENESIN LA 600 MG TABSR PO ×2 (08:19→21:16)
[2017-08-27] MEDS: CARISOPRODOL 350 MG TAB PO (08:23)
[2017-08-27] MEDS: CELECOXIB 100 MG CAP PO ×2 (08:24→21:14)
[2017-08-27] MEDS: LISINOPRIL 5 MG TAB PO (08:24)
[2017-08-27] MEDS: BUSPIRONE 10 MG TAB PO ×2 (08:25→21:17)
[2017-08-27] MEDS: morphine (ER) 15 MG TAB PO ×2 (08:25→21:17)
[2017-08-27] MEDS: CAPECITABINE 500 MG TAB PO ×2 (08:28→22:14)
[2017-08-27] MEDS: LETROZOLE 2.5 MG TAB PO (08:30)
[2017-08-27] MEDS: ENOXAPARIN 100 MG/ML SYG SC ×2 (08:31→21:30)
[2017-08-27] MEDS: MECLIZINE 25 MG TAB PO ×3 (08:35→21:17)
[2017-08-27] MEDS: (Nursing Note) XX ×2 (08:35→16:00)
[2017-08-27 15:56] LABS: CANCER ANTIGEN 15-3 21 U/mL (<32)
[2017-08-27] MEDS: morphine 2 MG INJ IV (21:08)
[2017-08-27] MEDS: traZODone 50 MG TAB PO (21:17)
[2017-08-28] MEDS: HYDROmorphONE 2 MG TAB PO ×5 (03:40→22:22)
[2017-08-28] MEDS: PANTOPRAZOLE (EC) 40 MG TAB PO (05:34)
[2017-08-28] MEDS: SENNA/DOCUSATE NA (8.6MG/50MG) TAB PO (09:09)
[2017-08-28] MEDS: MECLIZINE 25 MG TAB PO ×3 (09:09→20:52)
[2017-08-28] MEDS: CARISOPRODOL 350 MG TAB PO ×2 (09:09→20:51)
[2017-08-28] MEDS: CELECOXIB 100 MG CAP PO ×2 (09:09→22:22)
[2017-08-28] MEDS: DOCUSATE SODIUM 100 MG CAP PO ×2 (09:09→20:49)
[2017-08-28] MEDS: CALCIUM CARBONATE 1.25 GM TAB PO (09:10)
[2017-08-28] MEDS: GUAIFENESIN LA 600 MG TABSR PO ×2 (09:10→20:51)
[2017-08-28] MEDS: SUCRALFATE (100 MG/ML) 10ML CUP PO ×4 (09:10→20:52)
[2017-08-28] MEDS: BUSPIRONE 10 MG TAB PO ×2 (09:10→20:52)
[2017-08-28] MEDS: POLYETHYLENE GLYCOL 17 GM PACKET PO (09:11)
[2017-08-28] MEDS: GABAPENTIN 300 MG CAP PO ×3 (09:11→20:51)
[2017-08-28] MEDS: NEOMYC/POLYMYX/BACIT 30 GM OINT TOP ×2 (09:11→20:50)
[2017-08-28] MEDS: LISINOPRIL 5 MG TAB PO (09:12)
[2017-08-28] MEDS: DEXAMETHASONE 4 MG TAB PO ×2 (09:13→20:52)
[2017-08-28] MEDS: LETROZOLE 2.5 MG TAB PO (09:15)
[2017-08-28] MEDS: CAPECITABINE 500 MG TAB PO ×2 (09:16→20:59)
[2017-08-28] MEDS: ENOXAPARIN 100 MG/ML SYG SC ×2 (09:17→21:01)
[2017-08-28] MEDS: morphine (ER) 15 MG TAB PO ×2 (09:20→20:50)
[2017-08-28] MEDS: (Nursing Note) XX ×2 (10:00→16:00)
[2017-08-28] MEDS: traZODone 50 MG TAB PO (20:50)
[2017-08-29] MEDS: PANTOPRAZOLE (EC) 40 MG TAB PO (05:41)
[2017-08-29] MEDS: HYDROmorphONE 2 MG TAB PO ×4 (05:42→21:56)
[2017-08-29] MEDS: CELECOXIB 200 MG CAP PO ×2 (08:18→21:00)
[2017-08-29] MEDS: SUCRALFATE (100 MG/ML) 10ML CUP PO ×4 (08:18→21:35)
[2017-08-29] MEDS: GABAPENTIN 300 MG CAP PO ×3 (08:18→21:01)
[2017-08-29] MEDS: SENNA/DOCUSATE NA (8.6MG/50MG) TAB PO (08:19)
[2017-08-29] MEDS: CALCIUM CARBONATE 1.25 GM TAB PO (08:20)
[2017-08-29] MEDS: MECLIZINE 25 MG TAB PO ×3 (08:20→21:01)
[2017-08-29] MEDS: LETROZOLE 2.5 MG TAB PO (08:21)
[2017-08-29] MEDS: ENOXAPARIN 100 MG/ML SYG SC ×2 (08:22→21:40)
[2017-08-29] MEDS: CARISOPRODOL 350 MG TAB PO ×2 (08:22→21:01)
[2017-08-29] MEDS: LISINOPRIL 5 MG TAB PO (08:23)
[2017-08-29] MEDS: GUAIFENESIN LA 600 MG TABSR PO ×2 (08:24→21:42)
[2017-08-29] MEDS: NEOMYC/POLYMYX/BACIT 30 GM OINT TOP ×2 (08:24→21:01)
[2017-08-29] MEDS: morphine (ER) 15 MG TAB PO ×2 (08:25→20:59)
[2017-08-29] MEDS: POLYETHYLENE GLYCOL 17 GM PACKET PO (08:25)
[2017-08-29] MEDS: DEXAMETHASONE 4 MG TAB PO ×2 (08:31→21:01)
[2017-08-29] MEDS: DOCUSATE SODIUM 100 MG CAP PO ×2 (08:32→21:00)
[2017-08-29] MEDS: CAPECITABINE 500 MG TAB PO ×2 (08:33→21:39)
[2017-08-29] MEDS: BUSPIRONE 10 MG TAB PO ×2 (08:38→21:43)
[2017-08-29] MEDS: (Nursing Note) XX ×2 (10:00→16:00)
[2017-08-29] MEDS: traZODone 50 MG TAB PO (21:01)
[2017-08-30] MEDS: HYDROmorphONE 2 MG TAB PO ×4 (03:26→17:45)
[2017-08-30] MEDS: PANTOPRAZOLE (EC) 40 MG TAB PO (05:28)
[2017-08-30] MEDS: CARISOPRODOL 350 MG TAB PO ×2 (08:54→21:01)
[2017-08-30] MEDS: morphine (ER) 15 MG TAB PO ×2 (08:55→20:51)
[2017-08-30] MEDS: POLYETHYLENE GLYCOL 17 GM PACKET PO (09:05)
[2017-08-30] MEDS: NEOMYC/POLYMYX/BACIT 30 GM OINT TOP ×2 (09:05→20:58)
[2017-08-30] MEDS: CALCIUM CARBONATE 1.25 GM TAB PO (09:06)
[2017-08-30] MEDS: DOCUSATE SODIUM 100 MG CAP PO ×2 (09:06→20:51)
[2017-08-30] MEDS: GABAPENTIN 300 MG CAP PO ×3 (09:06→20:50)
[2017-08-30] MEDS: CELECOXIB 200 MG CAP PO ×2 (09:06→20:48)
[2017-08-30] MEDS: GUAIFENESIN LA 600 MG TABSR PO ×2 (09:07→20:49)
[2017-08-30] MEDS: SENNA/DOCUSATE NA (8.6MG/50MG) TAB PO (09:07)
[2017-08-30] MEDS: DEXAMETHASONE 4 MG TAB PO ×2 (09:07→20:49)
[2017-08-30] MEDS: MECLIZINE 25 MG TAB PO ×3 (09:08→20:48)
[2017-08-30] MEDS: BUSPIRONE 10 MG TAB PO ×2 (09:08→20:51)
[2017-08-30] MEDS: LISINOPRIL 5 MG TAB PO (09:09)
[2017-08-30] MEDS: SUCRALFATE (100 MG/ML) 10ML CUP PO ×4 (09:10→20:48)
[2017-08-30] MEDS: ENOXAPARIN 100 MG/ML SYG SC ×2 (09:11→20:57)
[2017-08-30] MEDS: LETROZOLE 2.5 MG TAB PO (09:12)
[2017-08-30] MEDS: CAPECITABINE 500 MG TAB PO ×2 (09:21→20:56)
[2017-08-30] MEDS: LORAZEPAM 1 MG TAB PO ×2 (09:28→22:05)
[2017-08-30] MEDS: (Nursing Note) XX ×2 (10:00→16:00)
[2017-08-30] MEDS: traZODone 50 MG TAB PO (20:50)
[2017-08-31] MEDS: PANTOPRAZOLE (EC) 40 MG TAB PO (05:48)
[2017-08-31] MEDS: HYDROmorphONE 2 MG TAB PO ×4 (05:49→22:40)
[2017-08-31 06:22] LABS: ADD MAN DIFF? NO
[2017-08-31 06:34] LABS: WHITE BLOOD COUNT 5.3 10^3/ul (4.8-10.8)
[2017-08-31 06:34] LABS: ABNORMAL IP MESSAGE 1; BASOPHILS % 0.2 % (0.0-2.0); EOSINOPHILS % 0.2 % (0.0-7.0); HEMATOCRIT 31.7 % (37.0-47.0); HEMOGLOBIN 10.4 g/dl (12.0-16.0); LYMPHOCYTES # 0.3 10^3/ul (0.8-2.9); LYMPHOCYTES % 6.3 % (15.0-51.0); MEAN CORPUSCULAR HEMOGLOBIN 30.3 pg (29.0-33.0); MEAN CORPUSCULAR HGB CONC 32.8 g/dl (32.0-37.0); MEAN CORPUSCULAR VOLUME 92.4 fl (82.0-101.0); MEAN PLATELET VOLUME 8.5 fl (7.4-10.4); MONOCYTE # 0.4 10^3/ul (0.3-0.9); MONOCYTES % 6.7 % (0.0-11.0); NEUTROPHIL # 4.5 10^3/ul (1.6-7.5); NEUTROPHILS % 85.5 % (39.0-77.0); NUCLEATED RED BLOOD CELLS% 0.4 /100WBC (0.0-0.0); PLATELET COUNT 282 10^3/UL (140-415); RED BLOOD COUNT 3.43 10^6/ul (4.20-5.40); RED CELL DISTRIBUTION WIDTH 17.5 % (11.5-14.5)
[2017-08-31 06:37] LABS: POSITIVE DIFF @See below
[2017-08-31 06:49] LABS: ALANINE AMINOTRANSFERASE 46 IU/L (13-69); ALBUMIN 3.4 g/dl (3.3-4.9); ALBUMIN/GLOBULIN RATIO 1.25; ALKALINE PHOSPHATASE 112 IU/L (42-121); ANION GAP 13 (8-16); ASPARTATE AMINO TRANSFERASE 27 IU/L (15-46); BILIRUBIN,INDIRECT 0.4 mg/dl (0-1.1); BILIRUBIN,TOTAL 0.4 mg/dl (0.2-1.3); BLOOD UREA NITROGEN 17 mg/dl (7-20); CALCIUM 8.8 mg/dl (8.4-10.2); CARBON DIOXIDE 29 mmol/L (21-31); CHLORIDE 100 mmol/L (97-110); CREATININE 0.35 mg/dl (0.44-1.00); GLUCOSE 92 mg/dl (70-220); POTASSIUM 3.9 mmol/L (3.5-5.1); SODIUM 138 mmol/L (135-144); TOTAL PROTEIN 6.1 g/dl (6.1-8.1)
[2017-08-31] MEDS: morphine (ER) 15 MG TAB PO ×2 (08:55→20:47)
[2017-08-31] MEDS: LETROZOLE 2.5 MG TAB PO (08:55)
[2017-08-31] MEDS: CARISOPRODOL 350 MG TAB PO ×2 (08:55→20:47)
[2017-08-31] MEDS: ENOXAPARIN 100 MG/ML SYG SC ×2 (08:56→20:44)
[2017-08-31] MEDS: SENNA/DOCUSATE NA (8.6MG/50MG) TAB PO (08:56)
[2017-08-31] MEDS: BUSPIRONE 10 MG TAB PO ×2 (08:57→20:42)
[2017-08-31] MEDS: DOCUSATE SODIUM 100 MG CAP PO ×2 (08:57→20:45)
[2017-08-31] MEDS: CALCIUM CARBONATE 1.25 GM TAB PO (08:57)
[2017-08-31] MEDS: GABAPENTIN 300 MG CAP PO ×3 (08:57→20:47)
[2017-08-31] MEDS: DEXAMETHASONE 4 MG TAB PO ×2 (08:57→20:46)
[2017-08-31] MEDS: MECLIZINE 25 MG TAB PO ×3 (08:57→20:42)
[2017-08-31] MEDS: CELECOXIB 200 MG CAP PO ×2 (08:57→20:45)
[2017-08-31] MEDS: GUAIFENESIN LA 600 MG TABSR PO ×2 (08:58→20:47)
[2017-08-31] MEDS: LISINOPRIL 5 MG TAB PO (08:58)
[2017-08-31] MEDS: POLYETHYLENE GLYCOL 17 GM PACKET PO (08:59)
[2017-08-31] MEDS: NEOMYC/POLYMYX/BACIT 30 GM OINT TOP ×2 (08:59→20:40)
[2017-08-31] MEDS: SUCRALFATE (100 MG/ML) 10ML CUP PO ×4 (08:59→20:43)
[2017-08-31] MEDS: LORAZEPAM 1 MG TAB PO (09:09)
[2017-08-31] MEDS: (Nursing Note) XX ×2 (10:00→16:00)
[2017-08-31] MEDS: CAPECITABINE 500 MG TAB PO ×2 (11:31→20:37)
[2017-08-31] MEDS: traZODone 50 MG TAB PO (20:46)
[2017-09-01] MEDS: PANTOPRAZOLE (EC) 40 MG TAB PO (05:13)
[2017-09-01] MEDS: HYDROmorphONE 2 MG TAB PO ×5 (05:13→22:51)
[2017-09-01] MEDS: MECLIZINE 25 MG TAB PO ×3 (08:58→20:25)
[2017-09-01] MEDS: SUCRALFATE (100 MG/ML) 10ML CUP PO ×4 (08:59→20:46)
[2017-09-01] MEDS: BUSPIRONE 10 MG TAB PO ×2 (08:59→20:45)
[2017-09-01] MEDS: DOCUSATE SODIUM 100 MG CAP PO (09:00)
[2017-09-01] MEDS: CELECOXIB 200 MG CAP PO ×2 (09:00→20:46)
[2017-09-01] MEDS: DEXAMETHASONE 4 MG TAB PO (09:00)
[2017-09-01] MEDS: POLYETHYLENE GLYCOL 17 GM PACKET PO (09:01)
[2017-09-01] MEDS: LETROZOLE 2.5 MG TAB PO (09:01)
[2017-09-01] MEDS: morphine (ER) 15 MG TAB PO ×2 (09:02→20:47)
[2017-09-01] MEDS: GUAIFENESIN LA 600 MG TABSR PO ×2 (09:02→20:46)
[2017-09-01] MEDS: SENNA/DOCUSATE NA (8.6MG/50MG) TAB PO (09:03)
[2017-09-01] MEDS: GABAPENTIN 300 MG CAP PO ×3 (09:03→20:46)
[2017-09-01] MEDS: CARISOPRODOL 350 MG TAB PO ×2 (09:03→20:46)
[2017-09-01] MEDS: CALCIUM CARBONATE 1.25 GM TAB PO (09:03)
[2017-09-01] MEDS: LISINOPRIL 5 MG TAB PO (09:04)
[2017-09-01] MEDS: ENOXAPARIN 100 MG/ML SYG SC ×2 (09:05→20:58)
[2017-09-01] MEDS: NEOMYC/POLYMYX/BACIT 30 GM OINT TOP ×2 (09:05→20:48)
[2017-09-01] MEDS: (Nursing Note) XX ×2 (10:00→15:23)
[2017-09-01] MEDS: traZODone 50 MG TAB PO (20:47)
[2017-09-01] MEDS: ALBUTEROL 0.083% (NEB) 2.5 MG/3 ML AMP HHN (22:25)
[2017-09-02] MEDS: HYDROmorphONE 2 MG TAB PO ×4 (05:22→22:14)
[2017-09-02] MEDS: LISINOPRIL 5 MG TAB PO (09:00)
[2017-09-02] MEDS: NEOMYC/POLYMYX/BACIT 30 GM OINT TOP ×2 (09:05→20:37)
[2017-09-02] MEDS: morphine (ER) 15 MG TAB PO ×2 (09:06→20:37)
[2017-09-02] MEDS: CARISOPRODOL 350 MG TAB PO ×2 (09:06→20:36)
[2017-09-02] MEDS: FAMOTIDINE 20 MG TAB PO (09:06)
[2017-09-02] MEDS: GABAPENTIN 300 MG CAP PO ×3 (09:07→20:36)
[2017-09-02] MEDS: CELECOXIB 200 MG CAP PO ×2 (09:07→20:35)
[2017-09-02] MEDS: MECLIZINE 25 MG TAB PO ×2 (09:07→12:45)
[2017-09-02] MEDS: CALCIUM CARBONATE 1.25 GM TAB PO (09:07)
[2017-09-02] MEDS: BUSPIRONE 10 MG TAB PO ×2 (09:07→20:37)
[2017-09-02] MEDS: LETROZOLE 2.5 MG TAB PO (09:16)
[2017-09-02] MEDS: SENNA/DOCUSATE NA (8.6MG/50MG) TAB PO (09:17)
[2017-09-02] MEDS: ENOXAPARIN 100 MG/ML SYG SC ×2 (09:17→20:41)
[2017-09-02] MEDS: POLYETHYLENE GLYCOL 17 GM PACKET PO (09:17)
[2017-09-02] MEDS: SUCRALFATE (100 MG/ML) 10ML CUP PO ×4 (09:17→20:35)
[2017-09-02] MEDS: GUAIFENESIN LA 600 MG TABSR PO ×2 (09:45→20:37)
[2017-09-02] MEDS: (Nursing Note) XX ×2 (10:00→16:00)
[2017-09-02] MEDS: ONDANSETRON 4 MG INJ IV (17:48)
[2017-09-02] MEDS: traZODone 50 MG TAB PO (20:36)
[2017-09-03 05:06] LABS: ADD MAN DIFF? NO
[2017-09-03 05:13] LABS: WHITE BLOOD COUNT 4.5 10^3/ul (4.8-10.8)
[2017-09-03 05:13] LABS: ABNORMAL IP MESSAGE 1; BASOPHILS % 0.2 % (0.0-2.0); EOSINOPHILS % 0.2 % (0.0-7.0); HEMOGLOBIN 9.9 g/dl (12.0-16.0); LYMPHOCYTES # 0.5 10^3/ul (0.8-2.9); LYMPHOCYTES % 11.9 % (15.0-51.0); MEAN PLATELET VOLUME 8.5 fl (7.4-10.4); MONOCYTE # 0.4 10^3/ul (0.3-0.9); NEUTROPHIL # 3.5 10^3/ul (1.6-7.5); NEUTROPHILS % 77.6 % (39.0-77.0); NUCLEATED RED BLOOD CELLS # 0.1 10^3/ul (0.0-0.0); NUCLEATED RED BLOOD CELLS% 1.3 /100WBC (0.0-0.0); PLATELET COUNT 266 10^3/UL (140-415); RED BLOOD COUNT 3.19 10^6/ul (4.20-5.40); RED CELL DISTRIBUTION WIDTH 18.3 % (11.5-14.5)
[2017-09-03 05:45] LABS: POSITIVE DIFF @See below
[2017-09-03] MEDS: HYDROmorphONE 2 MG TAB PO ×4 (06:09→20:36)
[2017-09-03 06:46] LABS: BLOOD UREA NITROGEN 16 mg/dl (7-20); CARBON DIOXIDE 32 mmol/L (21-31); CHLORIDE 99 mmol/L (97-110); CREATININE 0.41 mg/dl (0.44-1.00); GLUCOSE 90 mg/dl (70-220); PHOSPHORUS 5.1 mg/dl (2.5-4.9); SODIUM 138 mmol/L (135-144)
[2017-09-03 07:45] LABS: ANION GAP 11 (8-16); POTASSIUM 3.9 mmol/L (3.5-5.1)
[2017-09-03] MEDS: CELECOXIB 200 MG CAP PO ×2 (08:28→20:37)
[2017-09-03] MEDS: SENNA/DOCUSATE NA (8.6MG/50MG) TAB PO (08:28)
[2017-09-03] MEDS: CALCIUM CARBONATE 1.25 GM TAB PO (08:28)
[2017-09-03] MEDS: SUCRALFATE (100 MG/ML) 10ML CUP PO ×4 (08:28→20:36)
[2017-09-03] MEDS: FAMOTIDINE 20 MG TAB PO (08:28)
[2017-09-03] MEDS: POLYETHYLENE GLYCOL 17 GM PACKET PO (08:29)
[2017-09-03] MEDS: GUAIFENESIN LA 600 MG TABSR PO ×2 (08:29→20:37)
[2017-09-03] MEDS: GABAPENTIN 300 MG CAP PO ×3 (08:29→20:37)
[2017-09-03] MEDS: BUSPIRONE 10 MG TAB PO ×2 (08:29→20:37)
[2017-09-03] MEDS: LISINOPRIL 5 MG TAB PO (08:30)
[2017-09-03] MEDS: morphine (ER) 15 MG TAB PO ×2 (08:31→20:37)
[2017-09-03] MEDS: LETROZOLE 2.5 MG TAB PO (08:33)
[2017-09-03] MEDS: ENOXAPARIN 100 MG/ML SYG SC ×2 (08:33→20:41)
[2017-09-03] MEDS: (Nursing Note) XX ×2 (10:00→16:00)
[2017-09-03] MEDS: CARISOPRODOL 350 MG TAB PO ×2 (11:12→20:37)
[2017-09-03] MEDS: NEOMYC/POLYMYX/BACIT 30 GM OINT TOP ×2 (13:07→20:41)
[2017-09-03] MEDS: traZODone 50 MG TAB PO (20:37)
[2017-09-04] MEDS: HYDROmorphONE 2 MG TAB PO ×3 (06:35→20:38)
[2017-09-04] MEDS: LISINOPRIL 5 MG TAB PO (08:14)
[2017-09-04] MEDS: SUCRALFATE (100 MG/ML) 10ML CUP PO ×4 (08:18→20:35)
[2017-09-04] MEDS: POLYETHYLENE GLYCOL 17 GM PACKET PO (08:19)
[2017-09-04] MEDS: NEOMYC/POLYMYX/BACIT 30 GM OINT TOP ×2 (08:19→20:41)
[2017-09-04] MEDS: SENNA/DOCUSATE NA (8.6MG/50MG) TAB PO (08:20)
[2017-09-04] MEDS: FAMOTIDINE 20 MG TAB PO (08:20)
[2017-09-04] MEDS: GUAIFENESIN LA 600 MG TABSR PO ×2 (08:20→20:38)
[2017-09-04] MEDS: CELECOXIB 200 MG CAP PO ×2 (08:21→20:35)
[2017-09-04] MEDS: GABAPENTIN 300 MG CAP PO ×3 (08:21→20:38)
[2017-09-04] MEDS: CARISOPRODOL 350 MG TAB PO ×2 (08:21→20:37)
[2017-09-04] MEDS: CALCIUM CARBONATE 1.25 GM TAB PO (08:21)
[2017-09-04] MEDS: morphine (ER) 15 MG TAB PO ×2 (08:21→20:37)
[2017-09-04] MEDS: BUSPIRONE 10 MG TAB PO ×2 (08:21→20:35)
[2017-09-04] MEDS: LETROZOLE 2.5 MG TAB PO (08:29)
[2017-09-04] MEDS: ENOXAPARIN 100 MG/ML SYG SC ×2 (08:30→20:41)
[2017-09-04] MEDS: (Nursing Note) XX ×2 (09:40→15:35)
[2017-09-04] MEDS: traZODone 50 MG TAB PO (20:36)
[2017-09-05 05:02] LABS: ADD MAN DIFF? NO
[2017-09-05 05:12] LABS: ABNORMAL IP MESSAGE 1; EOSINOPHILS % 0.5 % (0.0-7.0); HEMATOCRIT 28.5 % (37.0-47.0); HEMOGLOBIN 9.2 g/dl (12.0-16.0); LYMPHOCYTES # 0.5 10^3/ul (0.8-2.9); LYMPHOCYTES % 11.9 % (15.0-51.0); MEAN CORPUSCULAR HEMOGLOBIN 30.8 pg (29.0-33.0); MEAN CORPUSCULAR HGB CONC 32.3 g/dl (32.0-37.0); MEAN CORPUSCULAR VOLUME 95.3 fl (82.0-101.0); MEAN PLATELET VOLUME 8.5 fl (7.4-10.4); MONOCYTE # 0.3 10^3/ul (0.3-0.9); MONOCYTES % 8.4 % (0.0-11.0); NEUTROPHIL # 3.1 10^3/ul (1.6-7.5); NEUTROPHILS % 77.9 % (39.0-77.0); PLATELET COUNT 229 10^3/UL (140-415); RED BLOOD COUNT 2.99 10^6/ul (4.20-5.40); RED CELL DISTRIBUTION WIDTH 19.5 % (11.5-14.5)
[2017-09-05 05:21] LABS: POSITIVE DIFF @See below
[2017-09-05 05:51] LABS: ALANINE AMINOTRANSFERASE 33 IU/L (13-69); ALBUMIN/GLOBULIN RATIO 1.15; ALKALINE PHOSPHATASE 122 IU/L (42-121); ANION GAP 12 (8-16); ASPARTATE AMINO TRANSFERASE 26 IU/L (15-46); BILIRUBIN,INDIRECT 0.3 mg/dl (0-1.1); BILIRUBIN,TOTAL 0.3 mg/dl (0.2-1.3); BLOOD UREA NITROGEN 11 mg/dl (7-20); CALCIUM 8.8 mg/dl (8.4-10.2); CARBON DIOXIDE 36 mmol/L (21-31); CHLORIDE 96 mmol/L (97-110); CREATININE 0.37 mg/dl (0.44-1.00); GLUCOSE 103 mg/dl (70-220); MAGNESIUM 2.1 mg/dl (1.7-2.5); PHOSPHORUS 3.7 mg/dl (2.5-4.9); POTASSIUM 4.1 mmol/L (3.5-5.1); SODIUM 140 mmol/L (135-144); TOTAL PROTEIN 5.6 g/dl (6.1-8.1)
[2017-09-05] MEDS: HYDROmorphONE 2 MG TAB PO ×2 (06:18→15:37)
[2017-09-05] MEDS: POLYETHYLENE GLYCOL 17 GM PACKET PO (08:12)
[2017-09-05] MEDS: CALCIUM CARBONATE 1.25 GM TAB PO (08:13)
[2017-09-05] MEDS: SUCRALFATE (100 MG/ML) 10ML CUP PO ×4 (08:13→21:00)
[2017-09-05] MEDS: SENNA/DOCUSATE NA (8.6MG/50MG) TAB PO (08:13)
[2017-09-05] MEDS: LETROZOLE 2.5 MG TAB PO (08:15)
[2017-09-05] MEDS: BUSPIRONE 10 MG TAB PO ×2 (08:16→21:02)
[2017-09-05] MEDS: LISINOPRIL 5 MG TAB PO (08:17)
[2017-09-05] MEDS: CELECOXIB 200 MG CAP PO ×2 (08:17→21:00)
[2017-09-05] MEDS: FAMOTIDINE 20 MG TAB PO ×2 (08:18→08:30)
[2017-09-05] MEDS: GABAPENTIN 300 MG CAP PO ×3 (08:30→21:00)
[2017-09-05] MEDS: NEOMYC/POLYMYX/BACIT 30 GM OINT TOP ×2 (08:34→21:19)
[2017-09-05] MEDS: ENOXAPARIN 100 MG/ML SYG SC ×2 (08:37→21:18)
[2017-09-05] MEDS: CARISOPRODOL 350 MG TAB PO (08:42)
[2017-09-05] MEDS: morphine (ER) 15 MG TAB PO ×2 (08:42→21:01)
[2017-09-05] MEDS: GUAIFENESIN LA 600 MG TABSR PO (08:42)
[2017-09-05] MEDS: (Nursing Note) XX ×2 (10:10→15:44)
[2017-09-05] MEDS ORDERED: GUAIFENESIN LA 600 MG TABSR PO (19:30)
[2017-09-05] MEDS: traZODone 50 MG TAB PO (21:00)
[2017-09-05] MEDS: LORAZEPAM 1 MG TAB PO (21:16)
[2017-09-06] MEDS: LISINOPRIL 5 MG TAB PO (09:00)
[2017-09-06] MEDS: SENNA/DOCUSATE NA (8.6MG/50MG) TAB PO (09:29)
[2017-09-06] MEDS: CALCIUM CARBONATE 1.25 GM TAB PO (09:30)
[2017-09-06] MEDS: FAMOTIDINE 20 MG TAB PO (09:31)
[2017-09-06] MEDS: BUSPIRONE 10 MG TAB PO ×2 (09:34→20:31)
[2017-09-06] MEDS: morphine (ER) 15 MG TAB PO ×2 (09:34→20:31)
[2017-09-06] MEDS: CELECOXIB 200 MG CAP PO ×2 (09:34→20:31)
[2017-09-06] MEDS: GABAPENTIN 300 MG CAP PO ×3 (09:35→20:31)
[2017-09-06] MEDS: POLYETHYLENE GLYCOL 17 GM PACKET PO (09:37)
[2017-09-06] MEDS: NEOMYC/POLYMYX/BACIT 30 GM OINT TOP ×2 (09:40→20:32)
[2017-09-06] MEDS: SUCRALFATE (100 MG/ML) 10ML CUP PO ×4 (09:41→20:30)
[2017-09-06] MEDS: LETROZOLE 2.5 MG TAB PO (09:43)
[2017-09-06] MEDS: ENOXAPARIN 100 MG/ML SYG SC ×2 (09:48→20:35)
[2017-09-06] MEDS: (Nursing Note) XX ×2 (10:00→16:00)
[2017-09-06] MEDS: HYDROmorphONE 2 MG TAB PO (15:49)
[2017-09-06] MEDS: ACETAMINOPHEN 325 MG TAB PO (20:31)
[2017-09-06] MEDS: LORAZEPAM 1 MG TAB PO (20:32)
[2017-09-06] MEDS: traZODone 50 MG TAB PO (20:32)
[2017-09-07 05:19] LABS: ABNORMAL IP MESSAGE 1; ADD MAN DIFF? NO; BASOPHILS % 0.4 % (0.0-2.0); EOSINOPHILS % 0.8 % (0.0-7.0); HEMATOCRIT 28.8 % (37.0-47.0); HEMOGLOBIN 9.4 g/dl (12.0-16.0); LYMPHOCYTES # 0.4 10^3/ul (0.8-2.9); LYMPHOCYTES % 16.1 % (15.0-51.0); MEAN CORPUSCULAR HEMOGLOBIN 31.1 pg (29.0-33.0); MEAN CORPUSCULAR HGB CONC 32.6 g/dl (32.0-37.0); MEAN CORPUSCULAR VOLUME 95.4 fl (82.0-101.0); MEAN PLATELET VOLUME 8.2 fl (7.4-10.4); MONOCYTE # 0.4 10^3/ul (0.3-0.9); MONOCYTES % 15.7 % (0.0-11.0); NEUTROPHIL # 1.6 10^3/ul (1.6-7.5); NEUTROPHILS % 66.6 % (39.0-77.0); PLATELET COUNT 213 10^3/UL (140-415); RED BLOOD COUNT 3.02 10^6/ul (4.20-5.40); RED CELL DISTRIBUTION WIDTH 19.5 % (11.5-14.5)
[2017-09-07 05:19] LABS: WHITE BLOOD COUNT 2.4 10^3/ul (4.8-10.8)
[2017-09-07 05:38] LABS: POSITIVE DIFF @See below
[2017-09-07 05:46] LABS: ANION GAP 11 (8-16); BLOOD UREA NITROGEN 8 mg/dl (7-20); CALCIUM 8.9 mg/dl (8.4-10.2); CARBON DIOXIDE 31 mmol/L (21-31); CHLORIDE 100 mmol/L (97-110); CREATININE 0.32 mg/dl (0.44-1.00); GLUCOSE 98 mg/dl (70-220); MAGNESIUM 2.1 mg/dl (1.7-2.5); PHOSPHORUS 4.1 mg/dl (2.5-4.9); POTASSIUM 3.9 mmol/L (3.5-5.1); SODIUM 138 mmol/L (135-144)
[2017-09-07] MEDS: HYDROmorphONE 2 MG TAB PO ×4 (07:02→22:52)
[2017-09-07] MEDS: CALCIUM CARBONATE 1.25 GM TAB PO (09:44)
[2017-09-07] MEDS: GABAPENTIN 300 MG CAP PO ×3 (09:44→20:54)
[2017-09-07] MEDS: FAMOTIDINE 20 MG TAB PO (09:44)
[2017-09-07] MEDS: morphine (ER) 15 MG TAB PO ×2 (09:45→20:55)
[2017-09-07] MEDS: LISINOPRIL 5 MG TAB PO (09:48)
[2017-09-07] MEDS: NEOMYC/POLYMYX/BACIT 30 GM OINT TOP ×2 (09:48→20:55)
[2017-09-07] MEDS: SENNA/DOCUSATE NA (8.6MG/50MG) TAB PO (09:48)
[2017-09-07] MEDS: CELECOXIB 200 MG CAP PO ×2 (09:48→20:54)
[2017-09-07] MEDS: SUCRALFATE (100 MG/ML) 10ML CUP PO ×4 (09:49→22:48)
[2017-09-07] MEDS: POLYETHYLENE GLYCOL 17 GM PACKET PO (09:49)
[2017-09-07] MEDS: LETROZOLE 2.5 MG TAB PO (09:56)
[2017-09-07] MEDS: ENOXAPARIN 80 MG/0.8 ML SYG SC ×2 (09:57→20:58)
[2017-09-07] MEDS: (Nursing Note) XX ×2 (10:00→16:00)
[2017-09-07] MEDS: BUSPIRONE 10 MG TAB PO ×2 (10:05→20:54)
[2017-09-07] MEDS: traZODone 50 MG TAB PO (20:54)
[2017-09-07] MEDS: LORAZEPAM 1 MG TAB PO (22:48)
[2017-09-08 05:08] LABS: ADD MAN DIFF? NO
[2017-09-08 05:11] LABS: ABNORMAL IP MESSAGE 1; BASOPHILS % 0.4 % (0.0-2.0); EOSINOPHILS % 1.2 % (0.0-7.0); HEMATOCRIT 30.3 % (37.0-47.0); HEMOGLOBIN 9.7 g/dl (12.0-16.0); LYMPHOCYTES # 0.4 10^3/ul (0.8-2.9); LYMPHOCYTES % 17.1 % (15.0-51.0); MEAN CORPUSCULAR HEMOGLOBIN 30.6 pg (29.0-33.0); MEAN CORPUSCULAR VOLUME 95.6 fl (82.0-101.0); MEAN PLATELET VOLUME 8.5 fl (7.4-10.4); MONOCYTE # 0.5 10^3/ul (0.3-0.9); MONOCYTES % 17.9 % (0.0-11.0); NEUTROPHIL # 1.6 10^3/ul (1.6-7.5); PLATELET COUNT 220 10^3/UL (140-415); RED BLOOD COUNT 3.17 10^6/ul (4.20-5.40); RED CELL DISTRIBUTION WIDTH 19.3 % (11.5-14.5)
[2017-09-08 05:11] LABS: WHITE BLOOD COUNT 2.5 10^3/ul (4.8-10.8)
[2017-09-08] MEDS: HYDROmorphONE 2 MG TAB PO ×4 (05:17→21:43)
[2017-09-08 05:22] LABS: POSITIVE DIFF @See below
[2017-09-08 05:34] LABS: ANION GAP 10 (8-16); BLOOD UREA NITROGEN 9 mg/dl (7-20); CALCIUM 9.1 mg/dl (8.4-10.2); CARBON DIOXIDE 31 mmol/L (21-31); CHLORIDE 100 mmol/L (97-110); CREATININE 0.35 mg/dl (0.44-1.00); GLUCOSE 100 mg/dl (70-220); SODIUM 137 mmol/L (135-144)
[2017-09-08] MEDS ORDERED: CAPECITABINE 500 MG TAB PO (09:00)
[2017-09-08] MEDS: POLYETHYLENE GLYCOL 17 GM PACKET PO (09:09)
[2017-09-08] MEDS: SENNA/DOCUSATE NA (8.6MG/50MG) TAB PO (09:10)
[2017-09-08] MEDS: morphine (ER) 15 MG TAB PO ×2 (09:10→20:14)
[2017-09-08] MEDS: CELECOXIB 200 MG CAP PO ×2 (09:10→20:11)
[2017-09-08] MEDS: BUSPIRONE 10 MG TAB PO ×2 (09:11→20:11)
[2017-09-08] MEDS: FAMOTIDINE 20 MG TAB PO (09:12)
[2017-09-08] MEDS: GABAPENTIN 300 MG CAP PO ×3 (09:12→20:13)
[2017-09-08] MEDS: CALCIUM CARBONATE 1.25 GM TAB PO (09:13)
[2017-09-08] MEDS: LISINOPRIL 5 MG TAB PO (09:14)
[2017-09-08] MEDS: SUCRALFATE (100 MG/ML) 10ML CUP PO ×4 (09:15→20:11)
[2017-09-08] MEDS: NEOMYC/POLYMYX/BACIT 30 GM OINT TOP ×2 (09:15→20:17)
[2017-09-08] MEDS: ENOXAPARIN 80 MG/0.8 ML SYG SC ×2 (09:36→20:17)
[2017-09-08] MEDS: LETROZOLE 2.5 MG TAB PO (09:58)
[2017-09-08] MEDS: CAPECITABINE 500 MG TAB PO ×2 (09:58→20:15)
[2017-09-08] MEDS: (Nursing Note) XX ×2 (10:00→16:00)
[2017-09-08] MEDS: traZODone 50 MG TAB PO (20:13)
[2017-09-08] MEDS: LORAZEPAM 1 MG TAB PO (21:42)
[2017-09-09] MEDS: HYDROmorphONE 2 MG TAB PO ×4 (05:44→20:23)
[2017-09-09] MEDS: POLYETHYLENE GLYCOL 17 GM PACKET PO (08:54)
[2017-09-09] MEDS: FAMOTIDINE 20 MG TAB PO (08:55)
[2017-09-09] MEDS: SENNA/DOCUSATE NA (8.6MG/50MG) TAB PO (08:55)
[2017-09-09] MEDS: CALCIUM CARBONATE 1.25 GM TAB PO (08:55)
[2017-09-09] MEDS: CELECOXIB 200 MG CAP PO ×2 (08:56→20:24)
[2017-09-09] MEDS: BUSPIRONE 10 MG TAB PO ×2 (08:56→20:24)
[2017-09-09] MEDS: GABAPENTIN 300 MG CAP PO ×3 (08:57→20:24)
[2017-09-09] MEDS: morphine (ER) 15 MG TAB PO ×2 (08:57→20:46)
[2017-09-09] MEDS: NEOMYC/POLYMYX/BACIT 30 GM OINT TOP ×2 (08:58→20:49)
[2017-09-09] MEDS: LISINOPRIL 5 MG TAB PO (08:58)
[2017-09-09] MEDS: ENOXAPARIN 80 MG/0.8 ML SYG SC ×2 (09:02→20:42)
[2017-09-09] MEDS: LETROZOLE 2.5 MG TAB PO (09:03)
[2017-09-09] MEDS: CAPECITABINE 500 MG TAB PO (09:04)
[2017-09-09] MEDS: (Nursing Note) XX ×2 (09:06→15:10)
[2017-09-09] MEDS: SUCRALFATE (100 MG/ML) 10ML CUP PO ×4 (09:06→20:23)
[2017-09-09] MEDS: traZODone 50 MG TAB PO (20:24)
[2017-09-10] MEDS: HYDROmorphONE 2 MG TAB PO ×5 (02:34→18:54)
[2017-09-10] MEDS: CALCIUM CARBONATE 1.25 GM TAB PO (09:06)
[2017-09-10] MEDS: SENNA/DOCUSATE NA (8.6MG/50MG) TAB PO (09:07)
[2017-09-10] MEDS: BUSPIRONE 10 MG TAB PO ×2 (09:07→20:49)
[2017-09-10] MEDS: CELECOXIB 200 MG CAP PO ×2 (09:07→20:49)
[2017-09-10] MEDS: POLYETHYLENE GLYCOL 17 GM PACKET PO (09:07)
[2017-09-10] MEDS: SUCRALFATE (100 MG/ML) 10ML CUP PO ×4 (09:07→20:49)
[2017-09-10] MEDS: FAMOTIDINE 20 MG TAB PO (09:07)
[2017-09-10] MEDS: morphine (ER) 15 MG TAB PO (09:07)
[2017-09-10] MEDS: GABAPENTIN 300 MG CAP PO ×3 (09:07→20:49)
[2017-09-10] MEDS: LISINOPRIL 5 MG TAB PO (09:08)
[2017-09-10] MEDS: NEOMYC/POLYMYX/BACIT 30 GM OINT TOP (09:09)
[2017-09-10] MEDS: LETROZOLE 2.5 MG TAB PO (09:13)
[2017-09-10] MEDS: ENOXAPARIN 80 MG/0.8 ML SYG SC ×2 (09:14→20:58)
[2017-09-10] MEDS: (Nursing Note) XX ×2 (09:15→15:43)
[2017-09-10] MEDS: LORAZEPAM 1 MG TAB PO (12:57)
[2017-09-10] MEDS: traZODone 50 MG TAB PO (20:49)
[2017-09-10] MEDS: morphine (ER) 30 MG TAB PO (20:50)
[2017-09-11] MEDS: HYDROmorphONE 2 MG TAB PO ×5 (05:26→19:39)
[2017-09-11] MEDS: FAMOTIDINE 20 MG TAB PO (09:08)
[2017-09-11] MEDS: CALCIUM CARBONATE 1.25 GM TAB PO (09:08)
[2017-09-11] MEDS: CELECOXIB 200 MG CAP PO ×2 (09:08→21:02)
[2017-09-11] MEDS: SENNA/DOCUSATE NA (8.6MG/50MG) TAB PO (09:08)
[2017-09-11] MEDS: GABAPENTIN 300 MG CAP PO ×3 (09:08→21:01)
[2017-09-11] MEDS: LISINOPRIL 5 MG TAB PO (09:10)
[2017-09-11] MEDS: BUSPIRONE 10 MG TAB PO ×2 (09:10→21:01)
[2017-09-11] MEDS: morphine (ER) 30 MG TAB PO ×2 (09:10→21:02)
[2017-09-11] MEDS: POLYETHYLENE GLYCOL 17 GM PACKET PO (09:11)
[2017-09-11] MEDS: SUCRALFATE (100 MG/ML) 10ML CUP PO ×4 (09:11→20:59)
[2017-09-11] MEDS: LETROZOLE 2.5 MG TAB PO (09:12)
[2017-09-11] MEDS: ENOXAPARIN 80 MG/0.8 ML SYG SC ×2 (09:13→21:08)
[2017-09-11] MEDS: (Nursing Note) XX ×2 (10:00→16:00)
[2017-09-11] MEDS: LORAZEPAM 1 MG TAB PO (11:18)
[2017-09-11] MEDS: HYDROmorphONE 1 MG/ML SYG IV ×2 (18:22→22:32)
[2017-09-11] MEDS: traZODone 50 MG TAB PO (21:01)
[2017-09-12] MEDS: HYDROmorphONE 2 MG TAB PO ×5 (06:08→18:17)
[2017-09-12] MEDS: BUSPIRONE 10 MG TAB PO ×2 (08:47→21:33)
[2017-09-12] MEDS: SUCRALFATE (100 MG/ML) 10ML CUP PO ×4 (08:47→21:33)
[2017-09-12] MEDS: CELECOXIB 200 MG CAP PO ×2 (08:48→21:34)
[2017-09-12] MEDS: LETROZOLE 2.5 MG TAB PO (08:52)
[2017-09-12] MEDS: GABAPENTIN 300 MG CAP PO ×3 (08:53→21:34)
[2017-09-12] MEDS: POLYETHYLENE GLYCOL 17 GM PACKET PO (08:53)
[2017-09-12] MEDS: ENOXAPARIN 80 MG/0.8 ML SYG SC ×2 (08:53→21:40)
[2017-09-12] MEDS: FAMOTIDINE 20 MG TAB PO (08:53)
[2017-09-12] MEDS: CALCIUM CARBONATE 1.25 GM TAB PO (08:53)
[2017-09-12] MEDS: SENNA/DOCUSATE NA (8.6MG/50MG) TAB PO (08:54)
[2017-09-12] MEDS: LISINOPRIL 5 MG TAB PO (08:54)
[2017-09-12] MEDS: morphine (ER) 30 MG TAB PO ×2 (08:55→19:44)
[2017-09-12] MEDS: (Nursing Note) XX ×2 (10:00→16:00)
[2017-09-12] MEDS: HYDROmorphONE 1 MG/ML SYG IV (21:22)
[2017-09-12] MEDS: traZODone 50 MG TAB PO (21:34)
[2017-09-13] MEDS: HYDROmorphONE 2 MG TAB PO (06:19)
[2017-09-13] MEDS: FAMOTIDINE 20 MG TAB PO (08:52)
[2017-09-13] MEDS: SUCRALFATE (100 MG/ML) 10ML CUP PO ×4 (08:52→20:39)
[2017-09-13] MEDS: POLYETHYLENE GLYCOL 17 GM PACKET PO (08:52)
[2017-09-13] MEDS: morphine (ER) 30 MG TAB PO ×2 (08:53→21:15)
[2017-09-13] MEDS: SENNA/DOCUSATE NA (8.6MG/50MG) TAB PO (08:53)
[2017-09-13] MEDS: GABAPENTIN 300 MG CAP PO ×3 (08:53→20:38)
[2017-09-13] MEDS: CELECOXIB 200 MG CAP PO ×2 (08:53→20:38)
[2017-09-13] MEDS: CALCIUM CARBONATE 1.25 GM TAB PO (08:53)
[2017-09-13] MEDS: BUSPIRONE 10 MG TAB PO ×2 (08:53→20:38)
[2017-09-13] MEDS: LETROZOLE 2.5 MG TAB PO (08:55)
[2017-09-13] MEDS: ENOXAPARIN 80 MG/0.8 ML SYG SC ×2 (08:56→20:44)
[2017-09-13] MEDS: LISINOPRIL 5 MG TAB PO (08:57)
[2017-09-13] MEDS ORDERED: HYDROmorphONE 4 MG TAB PO (09:30)
[2017-09-13] MEDS ORDERED: HYDROmorphONE 2 MG TAB PO (09:30)
[2017-09-13] MEDS: HYDROmorphONE 4 MG TAB PO ×3 (09:36→20:37)
[2017-09-13] MEDS: (Nursing Note) XX ×2 (10:00→16:00)
[2017-09-13] MEDS: LORAZEPAM 1 MG TAB PO (11:36)
[2017-09-13] MEDS: traZODone 50 MG TAB PO (20:38)
[2017-09-14] MEDS: HYDROmorphONE 4 MG TAB PO ×5 (05:43→22:11)
[2017-09-14] MEDS: CELECOXIB 200 MG CAP PO ×2 (08:17→20:55)
[2017-09-14] MEDS: BUSPIRONE 10 MG TAB PO ×2 (08:17→20:55)
[2017-09-14] MEDS: morphine (ER) 30 MG TAB PO ×2 (08:17→20:56)
[2017-09-14] MEDS: CALCIUM CARBONATE 1.25 GM TAB PO (08:17)
[2017-09-14] MEDS: POLYETHYLENE GLYCOL 17 GM PACKET PO (08:18)
[2017-09-14] MEDS: GABAPENTIN 300 MG CAP PO ×3 (08:18→20:56)
[2017-09-14] MEDS: SUCRALFATE (100 MG/ML) 10ML CUP PO ×4 (08:18→20:55)
[2017-09-14] MEDS: SENNA/DOCUSATE NA (8.6MG/50MG) TAB PO (08:18)
[2017-09-14] MEDS: FAMOTIDINE 20 MG TAB PO (08:18)
[2017-09-14] MEDS: LISINOPRIL 5 MG TAB PO (08:19)
[2017-09-14] MEDS: LETROZOLE 2.5 MG TAB PO (08:22)
[2017-09-14] MEDS: ENOXAPARIN 80 MG/0.8 ML SYG SC ×2 (08:22→20:58)
[2017-09-14] MEDS: (Nursing Note) XX ×2 (09:19→16:00)
[2017-09-14] MEDS: LORAZEPAM 1 MG TAB PO (10:42)
[2017-09-14] MEDS: traZODone 50 MG TAB PO (20:56)
[2017-09-15] MEDS: HYDROmorphONE 1 MG/ML SYG IV (00:47)
[2017-09-15] MEDS: HYDROmorphONE 4 MG TAB PO ×4 (06:59→23:47)
[2017-09-15] MEDS: LETROZOLE 2.5 MG TAB PO (08:28)
[2017-09-15] MEDS: FAMOTIDINE 20 MG TAB PO (08:29)
[2017-09-15] MEDS: SENNA/DOCUSATE NA (8.6MG/50MG) TAB PO (08:29)
[2017-09-15] MEDS: CELECOXIB 200 MG CAP PO ×2 (08:29→21:16)
[2017-09-15] MEDS: SUCRALFATE (100 MG/ML) 10ML CUP PO ×4 (08:29→21:15)
[2017-09-15] MEDS: GABAPENTIN 300 MG CAP PO ×3 (08:29→21:16)
[2017-09-15] MEDS: CALCIUM CARBONATE 1.25 GM TAB PO (08:29)
[2017-09-15] MEDS: BUSPIRONE 10 MG TAB PO ×2 (08:29→21:15)
[2017-09-15] MEDS: LORAZEPAM 1 MG TAB PO (08:30)
[2017-09-15] MEDS: LISINOPRIL 5 MG TAB PO (08:30)
[2017-09-15] MEDS: morphine (ER) 30 MG TAB PO ×2 (08:30→21:17)
[2017-09-15] MEDS: POLYETHYLENE GLYCOL 17 GM PACKET PO (08:31)
[2017-09-15] MEDS: ENOXAPARIN 80 MG/0.8 ML SYG SC ×2 (08:33→21:18)
[2017-09-15] MEDS: (Nursing Note) XX ×2 (10:00→16:00)
[2017-09-15] MEDS: traZODone 50 MG TAB PO (23:47)
[2017-09-16] MEDS: HYDROmorphONE 4 MG TAB PO ×4 (04:31→21:31)
[2017-09-16] MEDS: LETROZOLE 2.5 MG TAB PO ×2 (09:00→13:56)
[2017-09-16] MEDS: LISINOPRIL 5 MG TAB PO (09:00)
[2017-09-16] MEDS: GABAPENTIN 300 MG CAP PO ×3 (09:31→21:28)
[2017-09-16] MEDS: BUSPIRONE 10 MG TAB PO ×2 (09:31→21:26)
[2017-09-16] MEDS: POLYETHYLENE GLYCOL 17 GM PACKET PO (09:31)
[2017-09-16] MEDS: FAMOTIDINE 20 MG TAB PO (09:31)
[2017-09-16] MEDS: SENNA/DOCUSATE NA (8.6MG/50MG) TAB PO (09:31)
[2017-09-16] MEDS: CELECOXIB 200 MG CAP PO ×2 (09:31→21:26)
[2017-09-16] MEDS: CALCIUM CARBONATE 1.25 GM TAB PO (09:31)
[2017-09-16] MEDS: ENOXAPARIN 80 MG/0.8 ML SYG SC ×2 (09:39→21:30)
[2017-09-16] MEDS: morphine (ER) 30 MG TAB PO ×2 (09:53→20:27)
[2017-09-16] MEDS: SUCRALFATE (100 MG/ML) 10ML CUP PO ×4 (09:53→21:00)
[2017-09-16] MEDS: (Nursing Note) XX ×2 (09:55→13:59)
[2017-09-16] MEDS: traZODone 50 MG TAB PO (21:26)
[2017-09-17] MEDS: HYDROmorphONE 4 MG TAB PO ×2 (02:33→05:41)
[2017-09-17] MEDS: LORAZEPAM 1 MG TAB PO (07:48)
[2017-09-17] MEDS: LISINOPRIL 5 MG TAB PO (07:49)
[2017-09-17] MEDS: morphine (ER) 30 MG TAB PO ×2 (08:33→20:00)
[2017-09-17] MEDS: CELECOXIB 200 MG CAP PO ×2 (08:53→20:23)
[2017-09-17] MEDS: SENNA/DOCUSATE NA (8.6MG/50MG) TAB PO (08:53)
[2017-09-17] MEDS: SUCRALFATE (100 MG/ML) 10ML CUP PO ×4 (08:53→20:01)
[2017-09-17] MEDS: GABAPENTIN 300 MG CAP PO ×3 (08:53→19:59)
[2017-09-17] MEDS: BUSPIRONE 10 MG TAB PO ×2 (08:53→19:59)
[2017-09-17] MEDS: FAMOTIDINE 20 MG TAB PO (08:53)
[2017-09-17] MEDS: CALCIUM CARBONATE 1.25 GM TAB PO (09:00)
[2017-09-17] MEDS: POLYETHYLENE GLYCOL 17 GM PACKET PO (09:00)
[2017-09-17] MEDS: LETROZOLE 2.5 MG TAB PO (09:02)
[2017-09-17] MEDS: ENOXAPARIN 80 MG/0.8 ML SYG SC ×2 (09:03→20:26)
[2017-09-17 10:29] LABS: ADD MAN DIFF? NO
[2017-09-17 10:31] LABS: WHITE BLOOD COUNT 5.9 10^3/ul (4.8-10.8)
[2017-09-17 10:31] LABS: ABNORMAL IP MESSAGE 1; BASOPHILS % 0.3 % (0.0-2.0); EOSINOPHILS # 0.1 10^3/ul (0.0-0.5); LYMPHOCYTES # 0.5 10^3/ul (0.8-2.9); LYMPHOCYTES % 9.2 % (15.0-51.0); MEAN CORPUSCULAR HEMOGLOBIN 31.3 pg (29.0-33.0); MEAN CORPUSCULAR HGB CONC 33.3 g/dl (32.0-37.0); MEAN PLATELET VOLUME 8.7 fl (7.4-10.4); MONOCYTE # 0.6 10^3/ul (0.3-0.9); MONOCYTES % 10.2 % (0.0-11.0); NEUTROPHIL # 4.6 10^3/ul (1.6-7.5); NEUTROPHILS % 78.1 % (39.0-77.0); PLATELET COUNT 295 10^3/UL (140-415); RED BLOOD COUNT 3.19 10^6/ul (4.20-5.40); RED CELL DISTRIBUTION WIDTH 18.6 % (11.5-14.5)
[2017-09-17 10:40] LABS: POSITIVE DIFF @See below
[2017-09-17 10:56] LABS: ANION GAP 15 (8-16); BLOOD UREA NITROGEN 6 mg/dl (7-20); CALCIUM 9.1 mg/dl (8.4-10.2); CARBON DIOXIDE 30 mmol/L (21-31); CHLORIDE 96 mmol/L (97-110); CREATININE 0.38 mg/dl (0.44-1.00); GLUCOSE 105 mg/dl (70-220); POTASSIUM 3.6 mmol/L (3.5-5.1); SODIUM 137 mmol/L (135-144)
[2017-09-17] MEDS: HYDROmorphONE 2 MG TAB PO ×4 (12:01→23:54)
[2017-09-17] MEDS: (Nursing Note) XX (16:00)
[2017-09-17] MEDS: traZODone 50 MG TAB PO (19:59)
[2017-09-17] MEDS: MAGNESIUM HYDROXIDE 30ML CUP PO (20:23)
[2017-09-17] MEDS: LORAZEPAM 2 MG INJ IV (22:42)
[2017-09-18] MEDS: SUCRALFATE (100 MG/ML) 10ML CUP PO ×4 (09:10→20:40)
[2017-09-18] MEDS: FAMOTIDINE 20 MG TAB PO (09:10)
[2017-09-18] MEDS: CALCIUM CARBONATE 1.25 GM TAB PO (09:11)
[2017-09-18] MEDS: GABAPENTIN 300 MG CAP PO ×3 (09:11→20:41)
[2017-09-18] MEDS: SENNA/DOCUSATE NA (8.6MG/50MG) TAB PO (09:11)
[2017-09-18] MEDS: POLYETHYLENE GLYCOL 17 GM PACKET PO (09:12)
[2017-09-18] MEDS: CELECOXIB 200 MG CAP PO ×2 (09:12→20:42)
[2017-09-18] MEDS: morphine (ER) 30 MG TAB PO ×2 (09:14→20:41)
[2017-09-18] MEDS: BUSPIRONE 10 MG TAB PO ×2 (09:14→20:41)
[2017-09-18] MEDS: LISINOPRIL 5 MG TAB PO (09:14)
[2017-09-18] MEDS: LETROZOLE 2.5 MG TAB PO (09:16)
[2017-09-18] MEDS: ENOXAPARIN 80 MG/0.8 ML SYG SC ×2 (09:17→20:47)
[2017-09-18] MEDS: HYDROmorphONE 2 MG TAB PO ×5 (09:57→23:25)
[2017-09-18] MEDS: (Nursing Note) XX ×2 (10:00→16:00)
[2017-09-19] MEDS: morphine 4 MG/ML VIAL IV (00:28)
[2017-09-19] MEDS: LORAZEPAM 1 MG TAB PO (01:14)
[2017-09-19] MEDS: SUCRALFATE (100 MG/ML) 10ML CUP PO ×4 (08:18→21:38)
[2017-09-19] MEDS: CELECOXIB 200 MG CAP PO ×2 (08:18→21:38)
[2017-09-19] MEDS: BUSPIRONE 10 MG TAB PO ×2 (08:18→21:38)
[2017-09-19] MEDS: CALCIUM CARBONATE 1.25 GM TAB PO (08:19)
[2017-09-19] MEDS: POLYETHYLENE GLYCOL 17 GM PACKET PO (08:19)
[2017-09-19] MEDS: morphine (ER) 30 MG TAB PO ×2 (08:19→21:37)
[2017-09-19] MEDS: GABAPENTIN 300 MG CAP PO ×3 (08:19→21:38)
[2017-09-19] MEDS: FAMOTIDINE 20 MG TAB PO (08:20)
[2017-09-19] MEDS: SENNA/DOCUSATE NA (8.6MG/50MG) TAB PO (08:20)
[2017-09-19] MEDS: LISINOPRIL 5 MG TAB PO (08:21)
[2017-09-19] MEDS: LETROZOLE 2.5 MG TAB PO (08:22)
[2017-09-19] MEDS: ENOXAPARIN 80 MG/0.8 ML SYG SC ×2 (08:22→21:44)
[2017-09-19] MEDS: HYDROmorphONE 2 MG/ML SYG IV ×4 (09:51→22:54)
[2017-09-19] MEDS: (Nursing Note) XX ×2 (09:58→16:00)
[2017-09-20] MEDS: LORAZEPAM 1 MG TAB PO ×2 (00:31→14:18)
[2017-09-20] MEDS: HYDROmorphONE 2 MG/ML SYG IV ×4 (04:48→21:06)
[2017-09-20] MEDS: ACETAMINOPHEN 325 MG TAB PO ×2 (05:53→18:48)
[2017-09-20] MEDS: SENNA/DOCUSATE NA (8.6MG/50MG) TAB PO (08:55)
[2017-09-20] MEDS: CELECOXIB 200 MG CAP PO ×2 (08:55→21:39)
[2017-09-20] MEDS: CALCIUM CARBONATE 1.25 GM TAB PO (08:55)
[2017-09-20] MEDS: LISINOPRIL 5 MG TAB PO (08:56)
[2017-09-20] MEDS: FAMOTIDINE 20 MG TAB PO (08:56)
[2017-09-20] MEDS: GABAPENTIN 300 MG CAP PO ×3 (08:56→21:40)
[2017-09-20] MEDS: SUCRALFATE (100 MG/ML) 10ML CUP PO ×4 (08:56→21:38)
[2017-09-20] MEDS: BUSPIRONE 10 MG TAB PO ×2 (08:56→21:38)
[2017-09-20] MEDS: LETROZOLE 2.5 MG TAB PO (08:57)
[2017-09-20] MEDS: ENOXAPARIN 80 MG/0.8 ML SYG SC ×2 (08:57→21:44)
[2017-09-20] MEDS: morphine (ER) 30 MG TAB PO ×2 (08:57→21:40)
[2017-09-20] MEDS: POLYETHYLENE GLYCOL 17 GM PACKET PO (08:58)
[2017-09-20] MEDS: (Nursing Note) XX ×2 (10:00→16:00)
[2017-09-20] MEDS: HYDROmorphONE 1 MG/ML SYG IV (13:27)
[2017-09-21] MEDS: HYDROmorphONE 2 MG/ML SYG IV ×3 (02:10→13:01)
[2017-09-21] MEDS: CELECOXIB 200 MG CAP PO ×2 (09:23→20:41)
[2017-09-21] MEDS: SUCRALFATE (100 MG/ML) 10ML CUP PO ×4 (09:24→20:38)
[2017-09-21] MEDS: SENNA/DOCUSATE NA (8.6MG/50MG) TAB PO (09:24)
[2017-09-21] MEDS: LISINOPRIL 5 MG TAB PO (09:24)
[2017-09-21] MEDS: FAMOTIDINE 20 MG TAB PO (09:24)
[2017-09-21] MEDS: CALCIUM CARBONATE 1.25 GM TAB PO (09:25)
[2017-09-21] MEDS: BUSPIRONE 10 MG TAB PO ×2 (09:25→20:38)
[2017-09-21] MEDS: POLYETHYLENE GLYCOL 17 GM PACKET PO (09:25)
[2017-09-21] MEDS: GABAPENTIN 300 MG CAP PO ×3 (09:25→20:38)
[2017-09-21] MEDS: morphine (ER) 30 MG TAB PO (09:26)
[2017-09-21] MEDS: ENOXAPARIN 80 MG/0.8 ML SYG SC ×2 (09:32→21:04)
[2017-09-21] MEDS: LETROZOLE 2.5 MG TAB PO (09:32)
[2017-09-21] MEDS: (Nursing Note) XX ×2 (09:42→15:35)
[2017-09-21] MEDS ORDERED: HYDROmorphONE 2 MG TAB PO (15:30)
[2017-09-21] MEDS: morphine LIQ (10 MG/5 ML) CUP PO (16:48)
[2017-09-21] MEDS: CEPASTAT LOZENGE MT (16:54)
[2017-09-21] MEDS: morphine (ER) 15 MG TAB PO (20:43)
[2017-09-22] MEDS: morphine LIQ (10 MG/5 ML) CUP PO ×7 (00:50→22:04)
[2017-09-22] MEDS: morphine (ER) 15 MG TAB PO (08:30)
[2017-09-22] MEDS: CELECOXIB 200 MG CAP PO ×2 (09:05→20:35)
[2017-09-22] MEDS: CALCIUM CARBONATE 1.25 GM TAB PO (09:05)
[2017-09-22] MEDS: BUSPIRONE 10 MG TAB PO ×2 (09:06→20:35)
[2017-09-22] MEDS: SENNA/DOCUSATE NA (8.6MG/50MG) TAB PO (09:06)
[2017-09-22] MEDS: FAMOTIDINE 20 MG TAB PO (09:06)
[2017-09-22] MEDS: GABAPENTIN 300 MG CAP PO ×3 (09:06→20:35)
[2017-09-22] MEDS: LISINOPRIL 5 MG TAB PO (09:07)
[2017-09-22] MEDS: POLYETHYLENE GLYCOL 17 GM PACKET PO (09:07)
[2017-09-22] MEDS: LETROZOLE 2.5 MG TAB PO (09:07)
[2017-09-22] MEDS: SUCRALFATE (100 MG/ML) 10ML CUP PO ×4 (09:08→20:36)
[2017-09-22] MEDS: LORAZEPAM 1 MG TAB PO (09:10)
[2017-09-22] MEDS: ENOXAPARIN 80 MG/0.8 ML SYG SC ×2 (09:14→20:39)
[2017-09-22] MEDS: (Nursing Note) XX ×2 (10:00→16:00)
[2017-09-22] MEDS: morphine (ER) 30 MG TAB PO (20:36)
[2017-09-23] MEDS: morphine LIQ (10 MG/5 ML) CUP PO ×5 (01:00→21:40)
[2017-09-23] MEDS: morphine (ER) 30 MG TAB PO ×2 (08:55→20:36)
[2017-09-23] MEDS: FAMOTIDINE 20 MG TAB PO (08:59)
[2017-09-23] MEDS: CALCIUM CARBONATE 1.25 GM TAB PO (08:59)
[2017-09-23] MEDS: BUSPIRONE 10 MG TAB PO ×2 (08:59→20:34)
[2017-09-23] MEDS: CELECOXIB 200 MG CAP PO ×2 (09:00→20:34)
[2017-09-23] MEDS: LISINOPRIL 5 MG TAB PO (09:00)
[2017-09-23] MEDS: SENNA/DOCUSATE NA (8.6MG/50MG) TAB PO (09:00)
[2017-09-23] MEDS: SUCRALFATE (100 MG/ML) 10ML CUP PO ×4 (09:01→20:34)
[2017-09-23] MEDS: GABAPENTIN 300 MG CAP PO ×3 (09:01→20:34)
[2017-09-23] MEDS: POLYETHYLENE GLYCOL 17 GM PACKET PO (09:01)
[2017-09-23] MEDS: ENOXAPARIN 80 MG/0.8 ML SYG SC ×2 (09:19→20:37)
[2017-09-23] MEDS: (Nursing Note) XX ×2 (10:00→16:00)
[2017-09-23] MEDS: LORAZEPAM 1 MG TAB PO ×2 (12:45→21:40)
[2017-09-24] MEDS: LORAZEPAM 1 MG TAB PO ×3 (03:49→21:55)
[2017-09-24] MEDS: morphine LIQ (10 MG/5 ML) CUP PO ×4 (03:56→21:55)
[2017-09-24] MEDS: BUSPIRONE 10 MG TAB PO ×2 (08:25→20:57)
[2017-09-24] MEDS: CELECOXIB 200 MG CAP PO ×2 (08:25→20:57)
[2017-09-24] MEDS: SUCRALFATE (100 MG/ML) 10ML CUP PO ×4 (08:25→21:01)
[2017-09-24] MEDS: POLYETHYLENE GLYCOL 17 GM PACKET PO (08:26)
[2017-09-24] MEDS: CALCIUM CARBONATE 1.25 GM TAB PO (08:27)
[2017-09-24] MEDS: GABAPENTIN 300 MG CAP PO ×3 (08:27→20:57)
[2017-09-24] MEDS: morphine (ER) 30 MG TAB PO ×2 (08:27→20:58)
[2017-09-24] MEDS: FAMOTIDINE 20 MG TAB PO (08:27)
[2017-09-24] MEDS: SENNA/DOCUSATE NA (8.6MG/50MG) TAB PO (08:28)
[2017-09-24] MEDS: LISINOPRIL 5 MG TAB PO (08:28)
[2017-09-24] MEDS: ENOXAPARIN 80 MG/0.8 ML SYG SC (08:30)
[2017-09-24] MEDS: (Nursing Note) XX ×2 (10:00→16:00)
[2017-09-24] MEDS ORDERED: DIMETHICONE STICK TOP (14:00)
[2017-09-24] MEDS ORDERED: ARTIFICIAL TEARS 15 ML OPH BOTH EYES (14:00)
[2017-09-25] MEDS: morphine LIQ (10 MG/5 ML) CUP PO ×6 (05:57→21:05)
[2017-09-25] MEDS: morphine (ER) 30 MG TAB PO ×2 (09:13→21:04)
[2017-09-25] MEDS: LORAZEPAM 1 MG TAB PO ×2 (09:13→15:49)
[2017-09-25] MEDS: FAMOTIDINE 20 MG TAB PO (09:15)
[2017-09-25] MEDS: GABAPENTIN 300 MG CAP PO ×3 (09:15→21:04)
[2017-09-25] MEDS: BUSPIRONE 10 MG TAB PO ×2 (09:15→21:04)
[2017-09-25] MEDS: SENNA/DOCUSATE NA (8.6MG/50MG) TAB PO (09:15)
[2017-09-25] MEDS: CELECOXIB 200 MG CAP PO ×2 (09:16→21:04)
[2017-09-25] MEDS: CALCIUM CARBONATE 1.25 GM TAB PO (09:16)
[2017-09-25] MEDS: SUCRALFATE (100 MG/ML) 10ML CUP PO ×4 (09:16→21:04)
[2017-09-25] MEDS: POLYETHYLENE GLYCOL 17 GM PACKET PO (09:16)
[2017-09-25] MEDS: (Nursing Note) XX ×2 (10:00→16:00)
[2017-09-26] MEDS: morphine LIQ (10 MG/5 ML) CUP PO ×4 (00:09→20:18)
[2017-09-26] MEDS: LORAZEPAM 1 MG TAB PO (00:09)
[2017-09-26] MEDS: GABAPENTIN 300 MG CAP PO ×3 (09:14→20:34)
[2017-09-26] MEDS: SUCRALFATE (100 MG/ML) 10ML CUP PO ×4 (09:14→20:33)
[2017-09-26] MEDS: POLYETHYLENE GLYCOL 17 GM PACKET PO (09:14)
[2017-09-26] MEDS: CALCIUM CARBONATE 1.25 GM TAB PO (09:15)
[2017-09-26] MEDS: FAMOTIDINE 20 MG TAB PO (09:15)
[2017-09-26] MEDS: BUSPIRONE 10 MG TAB PO ×2 (09:15→20:33)
[2017-09-26] MEDS: CELECOXIB 200 MG CAP PO ×2 (09:15→20:34)
[2017-09-26] MEDS: morphine (ER) 30 MG TAB PO ×2 (09:15→21:03)
[2017-09-26] MEDS: SENNA/DOCUSATE NA (8.6MG/50MG) TAB PO (09:16)
[2017-09-26] MEDS: (Nursing Note) XX ×2 (10:00→16:00)
[2017-09-27] MEDS: morphine LIQ (10 MG/5 ML) CUP PO ×5 (00:43→22:38)
[2017-09-27] MEDS: LORAZEPAM 1 MG TAB PO ×2 (00:56→22:10)
[2017-09-27] MEDS: SUCRALFATE (100 MG/ML) 10ML CUP PO ×4 (08:37→20:15)
[2017-09-27] MEDS: GABAPENTIN 300 MG CAP PO ×3 (08:37→20:15)
[2017-09-27] MEDS: morphine (ER) 30 MG TAB PO ×2 (08:37→20:16)
[2017-09-27] MEDS: BUSPIRONE 10 MG TAB PO ×2 (08:37→20:15)
[2017-09-27] MEDS: CALCIUM CARBONATE 1.25 GM TAB PO (08:37)
[2017-09-27] MEDS: FAMOTIDINE 20 MG TAB PO (08:37)
[2017-09-27] MEDS: CELECOXIB 200 MG CAP PO ×2 (08:37→20:15)
[2017-09-27] MEDS: SENNA/DOCUSATE NA (8.6MG/50MG) TAB PO (08:37)
[2017-09-27] MEDS: POLYETHYLENE GLYCOL 17 GM PACKET PO (08:38)
[2017-09-27] MEDS: (Nursing Note) XX ×2 (09:35→16:00)
[2017-09-28] MEDS: morphine LIQ (10 MG/5 ML) CUP PO ×2 (06:34→11:09)
[2017-09-28] MEDS: POLYETHYLENE GLYCOL 17 GM PACKET PO (08:55)
[2017-09-28] MEDS: BUSPIRONE 10 MG TAB PO (08:55)
[2017-09-28] MEDS: SUCRALFATE (100 MG/ML) 10ML CUP PO ×2 (08:55→12:29)
[2017-09-28] MEDS: CELECOXIB 200 MG CAP PO (08:55)
[2017-09-28] MEDS: CALCIUM CARBONATE 1.25 GM TAB PO (08:56)
[2017-09-28] MEDS: morphine (ER) 30 MG TAB PO (08:56)
[2017-09-28] MEDS: FAMOTIDINE 20 MG TAB PO (08:56)
[2017-09-28] MEDS: SENNA/DOCUSATE NA (8.6MG/50MG) TAB PO (08:56)
[2017-09-28] MEDS: GABAPENTIN 300 MG CAP PO ×2 (08:56→12:29)
[2017-09-28] MEDS: (Nursing Note) XX ×2 (10:00→16:00)
[2017-09-28] MEDS: LORAZEPAM 1 MG TAB PO (10:57)
[2017-09-28] MEDS ORDERED: morphine 2 MG INJ IV (15:00)
[2017-09-28] MEDS ORDERED: BISACODYL 10 MG SUPP PR (15:00)
[2017-09-28] MEDS ORDERED: ONDANSETRON 4 MG INJ IV (15:00)
[2017-09-28] MEDS: morphine (DRIP) 100 MG/100 ML 100 ML IV (16:11)
[2017-09-29] MEDS: LORAZEPAM 2 MG INJ IV ×2 (08:37→16:06)
[2017-09-29] MEDS ORDERED: CAPECITABINE 500 MG TAB PO (09:00)
[2017-09-29] MEDS: morphine (DRIP) 100 MG/100 ML 100 ML IV ×2 (09:24→21:15)
[2017-09-29] MEDS: (Nursing Note) XX ×2 (10:00→16:00)
[2017-09-29] MEDS: morphine 2 MG INJ IV (12:22)
[2017-09-30] MEDS: LORAZEPAM 2 MG INJ IV ×5 (00:37→22:00)
[2017-09-30] MEDS: morphine 2 MG INJ IV (08:13)
[2017-09-30] MEDS: morphine 4 MG/ML VIAL IV ×2 (09:04→14:13)
[2017-09-30] MEDS: (Nursing Note) XX ×2 (10:00→16:00)
[2017-09-30] MEDS: morphine (DRIP) 100 MG/100 ML 100 ML IV ×2 (12:47→23:34)
[2017-10-01] MEDS: LORAZEPAM 2 MG INJ IV ×4 (04:11→20:53)
[2017-10-01] MEDS: morphine 4 MG/ML VIAL IV (09:03)
[2017-10-01] MEDS: (Nursing Note) XX ×2 (10:29→15:11)
[2017-10-01] MEDS: morphine (DRIP) 100 MG/100 ML 100 ML IV ×2 (11:29→22:38)
[2017-10-02] MEDS: LORAZEPAM 2 MG INJ IV ×4 (03:19→21:49)
[2017-10-02] MEDS: ACETAMINOPHEN 650 MG SUPP PR ×2 (04:08→15:09)
[2017-10-02] MEDS: morphine (DRIP) 100 MG/100 ML 100 ML IV ×2 (08:31→18:22)
[2017-10-02] MEDS: (Nursing Note) XX ×2 (09:56→16:03)
[2017-10-03] MEDS: ACETAMINOPHEN 650 MG SUPP PR ×2 (03:15→17:54)
[2017-10-03] MEDS: LORAZEPAM 2 MG INJ IV ×5 (03:15→23:12)
[2017-10-03] MEDS: morphine (DRIP) 100 MG/100 ML 100 ML IV ×3 (04:41→22:38)
[2017-10-03] MEDS: ATROPINE 1% 5 ML OPH SL ×7 (09:49→23:12)
[2017-10-03] MEDS: (Nursing Note) XX ×2 (10:00→16:00)
[2017-10-03] MEDS: SCOPOLAMINE 1.5 MG PATCH TRANSDERM (14:51)
[2017-10-03] MEDS ORDERED: LORAZEPAM 2 MG INJ IV (17:00)
[2017-10-04] MEDS: ATROPINE 1% 5 ML OPH SL ×12 (01:00→22:58)
[2017-10-04] MEDS: LORAZEPAM 2 MG INJ IV ×6 (03:00→22:58)
[2017-10-04] MEDS: morphine (DRIP) 100 MG/100 ML 100 ML IV ×3 (06:38→22:40)
[2017-10-04] MEDS: (Nursing Note) XX ×2 (07:38→15:24)
[2017-10-04] MEDS: ACETAMINOPHEN 650 MG SUPP PR ×2 (10:59→23:13)
[2017-10-05] MEDS: ATROPINE 1% 5 ML OPH SL ×3 (01:25→05:00)
[2017-10-05] MEDS: LORAZEPAM 2 MG INJ IV (03:00)
[2019-09-09] MEDS ORDERED: CAPECITABINE 500 MG TAB PO (09:00)
== END 2017-10-05 02:10 | disposition expired | DRG 543 ==
LOC: MS1 08-10 14:44 → E/R 08:38 → MS1 07-17 22:45 → MS4 10:25
PROVIDERS: Internal Medicine
PROC: 30233N1 Transfusion of Nonautologous Red Blood Cells into Peripheral Vein, Percutaneous Approach (ICD-10-PCS; principal; 2017-08-24)
DX: C79.51 Secondary malignant neoplasm of bone (principal); C79.31 Secondary malignant neoplasm of brain; C79.49 Secondary malignant neoplasm of other parts of nervous system; K56.7 Ileus, unspecified; G95.29 Other cord compression; I82.622 Acute embolism and thrombosis of deep veins of left upper extremity; G82.20 Paraplegia, unspecified; I82.B12 Acute embolism and thrombosis of left subclavian vein; C79.89 Secondary malignant neoplasm of other specified sites; K59.00 Constipation, unspecified; R33.9 Retention of urine, unspecified; Z51.5 Encounter for palliative care; I10 Essential (primary) hypertension; E78.5 Hyperlipidemia, unspecified; D70.1 Agranulocytosis secondary to cancer chemotherapy; I25.10 Atherosclerotic heart disease of native coronary artery without angina pectoris; G83.24 Monoplegia of upper limb affecting left nondominant side; F41.9 Anxiety disorder, unspecified; G62.9 Polyneuropathy, unspecified; C50.912 Malignant neoplasm of unspecified site of left female breast; N31.9 Neuromuscular dysfunction of bladder, unspecified; D64.89 Other specified anemias; Z86.73 Personal history of transient ischemic attack (TIA), and cerebral infarction without residual deficits; Z91.19 Patient's noncompliance with other medical treatment and regimen; Z90.12 Acquired absence of left breast and nipple
CPT/HCPCS: 36415; 36430; 70450; 70545; 70552; 70553; 71260; 72128; 72156; 72157; 72158; 74018; 74176; 76536; 76705; 77014; 77412; 80048; 80053; 80069; 81001; 82270; 82728; 83540; 83735; 84100; 84484; 85025; 85610; 85730; 86300; 86850; 86900; 86901; 86920; 87086; 93005; 93971; 94640; 94664; 96374; 97110; 97163; 97166; 97530; 97535; 99291-25